=== PATIENT | female | born 1955 | race Caucasian/White ===

== ENCOUNTER 2022-02-22 10:13 | Outpatient (REF) | payer MEDICARE, MEDICAID, SELFPAY ==
[2022-02-22 10:36] LABS: MANUAL DIFF FLAG NO
[2022-02-22 10:48] LABS: Basophils Absolute Auto 0.1 X10*3/uL (0.0-0.2); Basophils Percent Auto 1.3 % (0-2); Eosinophils Absolute Auto 0.2 X10*3/uL (0.0-0.4); Eosinophils Percent Auto 1.7 % (0-4); Hematocrit 40.9 % (37.0-47.0); Hemoglobin 13.5 g/dl (12.0-16.0); Imm Gran Abs Auto 0.05 X10*3/uL (0.00-0.03); Imm Gran Pct Auto 0.5 % (0.0-0.4); Lymphocytes Absolute Auto 1.2 X10*3/uL (1.2-4.9); Lymphocytes Percent Auto 11.3 % (20-40); Mean Corpuscular Hemoglobin 30.8 pg (27.0-33.0); Mean Corpuscular Volume 93.2 fL (80.0-98.0); Mean Platelet Volume 10.9 fL (9.4-12.3); Monocytes Percent Auto 9.2 % (2-11); Neutrophils Absolute Auto 8.3 x10*3/uL (2.0-8.3); Platelet Count 334 X10*3/uL (160-400); Red Blood Count 4.39 X10*6/uL (4.20-5.50); Red Cell Distribution Width 13.2 % (11.0-16.0); White Blood Count 10.9 X10*3/uL (4.8-10.8)
[2022-02-22 11:28] LABS: Alanine Aminotransferase 27 U/L (0-31); Albumin Level 4.3 g/dL (3.5-5.0); Alkaline Phosphatase 54 U/L (39-117); Anion Gap 14 (12-20); Aspartate Amino Transferase 23 U/L (5-31); Bilirubin Total 0.8 mg/dL (0.0-1.0); Blood Urea Nitrogen 8 mg/dL (9-16); Calcium 9.6 mg/dL (8.4-10.2); Carbon Dioxide 29 mmol/L (22-29); Chloride 100 mmol/L (96-108); Cholesterol 139 mg/dL; Estimated Glomerular Filt Rate > 60; Glucose Fasting 102 mg/dL (60-99); HDL Cholesterol 45 mg/dL; LDL Cholesterol Calculated 58 mg/dl; Potassium 4.2 mmol/L (3.3-5.1); Sodium 139 mmol/L (135-145); Total Protein 7.1 g/dL (6.5-8.0); Triglycerides 182 mg/dL
[2022-02-22 11:40] LABS: Free T4 (Free Thyroxine) 1.11 ng/dL (0.71-1.85); Thyroid Stimulating Hormone 1.63 uIU/mL (0.32-4.0); Vitamin D 25-OH Total 23.4 ng/mL (>30)
[2022-02-22 11:49] LABS: Vitamin B12 344 pg/mL (200-900)
[2022-02-22 12:42] LABS: Appearance Urine CLEAR; Color Urine YELLOW; Glucose Urine UA NEG (NEG); Leukocyte Esterase Urine 2+ (NEG); Nitrite Urine NEG (NEG); PH 7.5 (5.0-8.0); UACC Culture Trigger YES; Urine Blood NEG (NEG); Urine Ketones NEG (NEG); Urine Protein NEG (NEG-TRACE)
[2022-02-22 13:00] LABS: RBC Urine 0 /HPF (0); Squamous Epithelial Cell Urine 3+ /LPF
[2022-02-22 13:01] LABS: Bacteria Urine 1+ /LPF
== END 2022-02-22 10:14 | disposition home or self-care (01) ==
LOC: HO.LAB 10:13
PROVIDERS: PCP Internal Medicine; Visit Provider Internal Medicine
DX: G35 Multiple sclerosis (principal); I10 Essential (primary) hypertension; K21.9 Gastro-esophageal reflux disease without esophagitis; L40.50 Arthropathic psoriasis, unspecified
CPT/HCPCS: 36415; 80053; 80061; 81001; 82306; 82607; 84439; 84443; 85025; 86140; 87086

== ENCOUNTER 2022-05-16 12:29 | Outpatient (REF) | payer MEDICARE, MEDICAID, SELFPAY ==
--- NOTE | ~2022-05-16 | MM_ITS ---
EXAMINATION: MM SCREENING DIGITAL BREAST TOMOSYNTHESIS, BILATERAL CLINICAL INFORMATION: Screening. Asymptomatic. The lifetime risk of breast cancer based on the Tyrer-Cuzick Model is 4%. COMPARISON: Mammography: February 27, 2018 and studies dating back to May 28, 2012 TECHNIQUE: Digital breast tomosynthesis is performed in both the craniocaudal and mediolateral oblique views along with computer-aided detection (CAD). Synthesized 2D images are generated from the tomosynthesis. FINDINGS: There are scattered areas of fibroglandular density (ACR BI-RADS breast composition Category b). There are no significant masses, abnormal calcifications, or other abnormalities. MM/MM tomosynthesis screening BI IMPRESSION: No significant changes from prior exam. ASSESSMENT: BI-RADS 1: Negative RECOMMENDATION: Routine annual mammography screening. This patient's information was entered into a reminder system with a target due date for their next mammogram.
--- NOTE | ~2022-05-16 | MM_ITS ---
EXAMINATION: BONE DENSITOMETRY CLINICAL INDICATION: Asymptomatic menopausal state. COMPARISON: Previous BD dated 04/21/2013 and baseline BD dated 06/14/2005. TECHNIQUE: Using a [facility] DXA System (software version: 13.1) manufactured by [employer], dual-energy x-ray absorptiometry was performed of the lumbar spine and left hip. The images are of good technical quality. Summary results are attached. FINDINGS: AP SPINE L3-L4 (excluding L1 and L2): The data of L1-L4 has been changed to exclude the L1 and L2 vertebral bodies, because degenerative changes at these levels may cause overestimation of lumbar spine density. Current: BMD 1.085 g/cm2, Z-score -0.5, T-score -1.0, normal, 0.4% decrease from previous, 5.4% increase from baseline (<5% change is not significant). Prior: BMD 1.089 g/cm2. Baseline: BMD 1.029 g/cm2. LEFT FEMUR, NECK: Current: BMD 0.849 g/cm2, Z-score -0.7, T-score -1.4, osteopenia. Prior: BMD 0.936 g/cm2. Baseline: BMD 0.972 g/cm2. LEFT FEMUR, TOTAL: Current: BMD 0.815 g/cm2, Z-score -1.2, T-score -1.5, osteopenia, 20.6% decrease from previous, 19.2% decrease from baseline (<5% change is not significant). Prior: BMD 1.026 g/cm2. Baseline: BMD 1.009 g/cm2. IDENTIFIED RISK FACTORS: Menopause, osteoporosis, glucocorticoids (chronic), history of fracture (adult). HISTORY OF FRACTURE: Forearm. MEDICATIONS: Prolia. MM/XR DEXA axial skeleton IMPRESSION: 1. DIAGNOSIS: Osteopenia based on the lowest T-score value of -1.5 in the total femur applying World Health Organization criteria. 2. 10-YEAR FRACTURE RISK PREDICTION, FRAX: Major osteoporotic fracture (clinical spine, forearm, hip or shoulder) 17.7%. Hip fracture 1.7%. 3. Treatment Recommendations: NOF guidelines recommend consideration for treatment in postmenopausal women and men age 50 and older presenting with the following: -A hip or vertebral (clinical or morphometric) fracture. -T-score less than or equal to -2.5 at the femoral neck or spine after appropriate evaluation to exclude secondary causes. -Low bone mass at the hip or spine and a 10-year fracture probability by FRAX of greater than or equal to 3% for hip fracture or greater than or equal to 20% for major osteoporotic fracture based on the [place] adapted WHO algorithm. 4. Other Recommendations: All treatment decisions require clinical judgment and consideration of individual patient factors, including patient preferences, comorbidities, previous drug use, risk factors not captured in the FRAX model (e.g. frailty, falls, vitamin D deficiency, increased bone turnover, interval significant decline in bone density) and possible under or overestimation of fracture risk by FRAX. Additional medical evaluation for secondary cause of low bone mineral density may be appropriate. FUTURE SCAN RECOMMENDATION: People with diagnosed cases of osteoporosis or at high risk for fracture should have regular bone mineral density tests. For patients eligible for Medicare, routine testing is allowed once every 2 years. The testing frequency can be increased to one year for patients who have rapidly progressing disease, those who are receiving or discontinuing medical therapy to restore bone mass, or have additional risk factors.
== END 2022-05-16 12:30 | disposition home or self-care (01) ==
LOC: HO.MAMMO 12:29
PROVIDERS: PCP Internal Medicine; Visit Provider Internal Medicine
DX: Z12.31 Encounter for screening mammogram for malignant neoplasm of breast (principal); Z13.820 Encounter for screening for osteoporosis; Z78.0 Asymptomatic menopausal state
CPT/HCPCS: 77063; 77067; 77080

== ENCOUNTER 2022-06-01 12:06 | Inpatient (IN) | payer MEDICARE, MEDICAID, SELFPAY ==
--- NOTE | ~2022-06-01 | CT_ITS ---
EXAMINATION: CT PELVIS WITH CONTRAST CLINICAL INFORMATION: Groin lymphadenopathy. COMPARISON: Ultrasound bilateral venous duplex 06/01/2022. TECHNIQUE: Helical scanning was performed with submillimeter collimation through the pelvis with the use of oral contrast and during bolus intravenous injection of 100 mL of Omnipaque 350 intravenous contrast. Sagittal and coronal multiplanar 2-D reconstructions were obtained. This CT examination was performed using dose optimization techniques as appropriate, variously including the following: *Automated exposure control *Adjustment of mA and/or kV according to patient size (this includes techniques or standardized protocols for targeted exams where dose is matched to indication/reason for exam; i.e. extremities or head) *Use of iterative reconstruction technique DLP: 511 mGy-cm FINDINGS: PELVIS: There is a curvilinear soft tissue density right groin measuring 5.7 x 1.2 cm and coronal image 38/14. The measures -20 Hounsfield units and likely seroma, less likely lymphocele. Small shotty lymph nodes are seen in bilateral groin measuring 1.5 cm and less. There appear benign. No soft tissue mass seen. Bilateral external iliac and common femoral arteries and the veins are symmetrical. The uterus is anteverted and appears unremarkable. There are scattered phleboliths in the left pelvis. Scattered stool is seen throughout the colon, most prominent in the ileocecal region but without distention. Appendix is normal. No free fluid or free air seen. OSSEOUS STRUCTURES: There are degenerative disc changes and vacuum disc phenomena L5-S1 disc level with mild ventral spondylosis. No gross lytic or sclerotic process seen. There is moderate bilateral L4-L5 facet joint arthropathy. No lytic or sclerotic process seen. CT/CT pelvis w IV con IMPRESSION: Curvilinear hypodense structure right groin corresponding to ultrasound finding is most likely a small seroma, less likely lymphocele. Correlate with any previous vascular intervention. Mild constipation.
--- NOTE | ~2022-06-01 | US_ITS ---
EXAMINATION: US VENOUS ULTRASOUND WITH DOPPLER LOWER EXTREMITY, BILATERAL CLINICAL INFORMATION: Lower extremity swelling and redness. History of lymphedema. COMPARISON: None TECHNIQUE: Ultrasound of the deep veins is performed from the hip to the calf with compression sonography and color and pulse Doppler assessment. Spectral analysis with color-flow imaging is performed. FINDINGS: Exam quality is limited due to patient body habitus. RIGHT: There is normal respiratory variation and augmented flow. The visualized common femoral vein, superficial femoral vein, profunda femoral vein, and popliteal vein region shows no evidence of deep venous thrombosis. There is no significant popliteal fossa cyst. Calf veins not definitely seen. Incidental finding of a 6.2 x 1.7 x 5.5 cm oblong-shaped anechoic avascular fluid collection in the right groin. LEFT: There is normal respiratory variation and augmented flow. The visualized common femoral vein, superficial femoral vein, profunda femoral vein, in popliteal vein shows no evidence of deep venous thrombosis. There is no significant popliteal fossa cyst. Calf veins not definitely seen. If the patient's symptoms persist, followup ultrasound in 5 days 7 days might be of value to exclude proximal propagation from a non-visualized calf vein. US/US venous duplex LE BI IMPRESSION: 1. No DVT demonstrated in the bilateral lower extremities within the limitations of this exam. 2. 6.2 x 1.7 x 5.5 cm oblong-shaped anechoic avascular fluid collection in the right groin, possibly small seroma. 3. Exam quality is limited due to patient body habitus. If the patient's symptoms persist, followup ultrasound in 5 days 7 days might be of value to exclude proximal propagation from a non-visualized calf vein.
[2022-06-01 12:11] VITALS: BP 163/82; PULSE 67; RESP 20; TEMP 36.7; O2SAT 98; BMI 49.6
[2022-06-01 12:22] LABS: MANUAL DIFF FLAG NO
[2022-06-01 12:23] LABS: Basophils Absolute Auto 0.1 X10*3/uL (0.0-0.2); Eosinophils Absolute Auto 0.2 X10*3/uL (0.0-0.4); Eosinophils Percent Auto 2.2 % (0-4); Hematocrit 40.9 % (37.0-47.0); Hemoglobin 13.3 g/dl (12.0-16.0); Imm Gran Abs Auto 0.05 X10*3/uL (0.00-0.03); Imm Gran Pct Auto 0.5 % (0.0-0.4); Lymphocytes Absolute Auto 1.4 X10*3/uL (1.2-4.9); Lymphocytes Percent Auto 13.2 % (20-40); Mean Corpuscular HGB Conc 32.5 g/dl (31.0-35.0); Mean Corpuscular Hemoglobin 30.9 pg (27.0-33.0); Mean Corpuscular Volume 94.9 fL (80.0-98.0); Mean Platelet Volume 10.6 fL (9.4-12.3); Monocytes Absolute Auto 0.9 X10*3/uL (0.1-1.2); Monocytes Percent Auto 8.6 % (2-11); Neutrophils Absolute Auto 7.7 x10*3/uL (2.0-8.3); Neutrophils Percent Auto 74.5 % (45-73); Platelet Count 302 X10*3/uL (160-400); Red Blood Count 4.31 X10*6/uL (4.20-5.50); Red Cell Distribution Width 13.2 % (11.0-16.0); White Blood Count 10.3 X10*3/uL (4.8-10.8)
[2022-06-01 12:38] LABS: Anion Gap 17 (12-20); Blood Urea Nitrogen 9 mg/dL (9-16); Calcium 8.9 mg/dL (8.4-10.2); Carbon Dioxide 26 mmol/L (22-29); Chloride 99 mmol/L (96-108); Estimated Glomerular Filt Rate > 60; Glucose Random 104 mg/dL (60-115); Potassium 3.9 mmol/L (3.3-5.1); Sodium 138 mmol/L (135-145)
--- NOTE | 2022-06-01 17:54 | ED_ITS ---
HPI - General Adult General Chief complaint: Skin/Abscess/Foreign Body Stated complaint: cellulitis on leg Time Seen by Provider: 06/01/22 17:22 Source: patient Mode of arrival: ambulatory History of Present Illness HPI narrative: 67-year-old female with history of MS, hypertension and chronic lymphedema that has gradually worsened over the years and she states that she is now having significant weeping from bilateral legs and that they hurt in have become more red, she denies any shortness of breath, fevers, chills and received a referral or was instructed by her primary care provider to follow up with the lymphedema specialist however as per the patient there are none in the [place] area. Related Data Allergies Allergy/AdvReac Type Severity Reaction Status Date / Time codeine [Codeine] Allergy Mild ITCH Unverified 04/14/20 16:27 lisinopril [Lisinopril] Allergy Unknown VOMITING Unverified 04/14/20 16:27 Review of Systems Review of Systems: Pertinent positives and negatives as stated in HPI 10 point review of systems is otherwise negative. PMFSH Past Medical History Source: nursing notes reviewed Social History Social History Advance Directives: No Advance Directives Information Provided: No Physical Exam ED Vital Signs: Vital Signs - 24 hr 06/01/22 12:11 Temperature 98.0 F Pulse Rate 67 Respiratory Rate 20 Blood Pressure 163/82 H Pulse Oximetry 98 Oxygen Delivery Method Room Air BMI result Body Mass Index 49.6 VITAL SIGNS: Reviewed. GENERAL: Elevated BMI, Well developed, well nourished, in no acute distress. HEAD: Normocephalic/atraumatic EYES: PERRLA, EOMI EARS: Ext canals without abnormality OROPHARYNX: no oral lesions noted, posterior pharynx clear LUNGS: Normal breath sounds. No adventitious sounds or accessory muscle use. SpO2<98> CARDIOVASCULAR: Regular rate and rhythm without noted murmurs ABDOMEN: Soft, non-tender, non-distended with bowel sounds. MUSCULOSKELETAL: No tenderness, deformities, or effusions noted on gross inspection. EXTREMITIES: No cyanosis, bilateral lower extremity lymphedema with increasing erythema and multiple areas of weeping with honey-crusted lesions and concern for intra fold yeast infection. SKIN: Inspection of the skin reveals no rashes NEUROLOGIC: Alert and oriented x 4. Strength and sensation to light touch were grossly intact x 4. Course Course Course Narrative: [id number] female with history and clinical presentation consistent with bilateral lower extremity lymphedema that is worsening and appears to have superimposed infection consistent with cellulitis. On review of all investigations although patient does not have leukocytosis there is a left shift and CRP-2.6 as well as clinical exam that is most consistent with cellulitis. Patient will receive antibiotics. I discussed the case with the hospitalist who accepts admission. Medical Decision Making Lab Data Result diagrams: 06/01/22 12:18 06/01/22 12:18 Labs: Lab Results 06/01/22 06/01/22 06/01/22 Range/Units 12:18 12:18 18:23 WBC 10.3 (4.8-10.8) X10*3/uL RBC 4.31 (4.20-5.50) X10*6/uL Hgb 13.3 (12.0-16.0) g/dl Hct 40.9 (37.0-47.0) % MCV 94.9 (80.0-98.0) fL MCH 30.9 (27.0-33.0) pg MCHC 32.5 (31.0-35.0) g/dl RDW 13.2 (11.0-16.0) % Plt Count 302 (160-400) X10*3/uL MPV 10.6 (9.4-12.3) fL Immature Gran % (Auto) 0.5 H (0.0-0.4) % Neut % (Auto) 74.5 H (45-73) % Lymph % (Auto) 13.2 L (20-40) % [place] % (Auto) 8.6 (2-11) % Eos % (Auto) 2.2 (0-4) % Baso % (Auto) 1.0 (0-2) % Lymph # (Auto) 1.4 (1.2-4.9) X10*3/uL [place] # (Auto) 0.9 (0.1-1.2) X10*3/uL Eos # (Auto) 0.2 (0.0-0.4) X10*3/uL Baso # (Auto) 0.1 (0.0-0.2) X10*3/uL Abs Immat Gran (auto) 0.05 H (0.00-0.03) X10*3/uL Absolute Neuts (auto) 7.7 (2.0-8.3) x10*3/uL Absolute Nucleated RBC 0.000 (0.0-0.012) X10*3/uL Nucleated RBC % (auto) 0.0 (0.0-0.2) /100WBC Sodium 138 (135-145) mmol/L Potassium 3.9 (3.3-5.1) mmol/L Chloride 99 (96-108) mmol/L Carbon Dioxide 26 (22-29) mmol/L Anion Gap 17 (12-20) BUN 9 (9-16) mg/dL Creatinine 0.70 (0.5-1.4) mg/dL Estim Creat Clear Calc 104.0 Estimated GFR > 60 Random Glucose 104 (60-115) mg/dL Lactic Acid 1.2 (0.5-2.0) mmol/L Calcium 8.9 D (8.4-10.2) mg/dL C-Reactive Protein 2.86 H (< or = 0.50) mg/dL COVID-19 ([facility]) (Negative) COVID-19 Clin Com 06/01/22 Range/Units 18:23 WBC (4.8-10.8) X10*3/uL RBC (4.20-5.50) X10*6/uL Hgb (12.0-16.0) g/dl Hct (37.0-47.0) % MCV (80.0-98.0) fL MCH (27.0-33.0) pg MCHC (31.0-35.0) g/dl RDW (11.0-16.0) % Plt Count (160-400) X10*3/uL MPV (9.4-12.3) fL Immature Gran % (Auto) (0.0-0.4) % Neut % (Auto) (45-73) % Lymph % (Auto) (20-40) % [place] % (Auto) (2-11) % Eos % (Auto) (0-4) % Baso % (Auto) (0-2) % Lymph # (Auto) (1.2-4.9) X10*3/uL [place] # (Auto) (0.1-1.2) X10*3/uL Eos # (Auto) (0.0-0.4) X10*3/uL Baso # (Auto) (0.0-0.2) X10*3/uL Abs Immat Gran (auto) (0.00-0.03) X10*3/uL Absolute Neuts (auto) (2.0-8.3) x10*3/uL Absolute Nucleated RBC (0.0-0.012) X10*3/uL Nucleated RBC % (auto) (0.0-0.2) /100WBC Sodium (135-145) mmol/L Potassium (3.3-5.1) mmol/L Chloride (96-108) mmol/L Carbon Dioxide (22-29) mmol/L Anion Gap (12-20) BUN (9-16) mg/dL Creatinine (0.5-1.4) mg/dL Estim Creat Clear Calc Estimated GFR Random Glucose (60-115) mg/dL Lactic Acid (0.5-2.0) mmol/L Calcium (8.4-10.2) mg/dL C-Reactive Protein (< or = 0.50) mg/dL COVID-19 ([facility]) Negative (Negative) COVID-19 Clin Com See Note ECG Data Attestation: I personally reviewed and interpreted this ECG as follows: Prior ECG tracings: not available for review Interpretation: Atrial fibrillation, HR-60, no STEMI, QRS/QTC is within normal limits. Critical Care Time Critical Care Time Critical Care Time: Yes Total Critical Care Time: 30 Attestation: I personally attest to this time spent taking care of the patient. Discharge Plan Discharge Clinical Impression: Cellulitis, Lymphedema, Hypertension, Atrial fibrillation Patient Disposition: Admitted As Inpatient
--- NOTE | 2022-06-01 18:00 | ECG_ITS ---
Test Reason : hypertension Blood Pressure : / mmHG Vent. Rate : 060 BPM Atrial Rate : 000 BPM P-R Int : 000 ms QRS Dur : 088 ms QT Int : 454 ms P-R-T Axes : 000 061 013 degrees QTc Int : 454 ms Atrial fibrillation RSR' or QR pattern in V1 suggests right ventricular conduction delay Nonspecific ST abnormality Abnormal ECG When compared with ECG of 18-JUL-2019 15:56, Heart rate has decreased Criteria for Inferior infarct are no longer Present Referred By: Ana Martin Electronically Signed By:ROMEO ANTHONY MD
[2022-06-01 18:10] LABS: C Reactive Protein 2.86 mg/dL (< or = 0.50)
[2022-06-01 18:52] LABS: Lactic Acid 1.2 mmol/L (0.5-2.0)
[2022-06-01 18:54] LABS: COVID-19 Test Negative (Negative); IDNOW Serial# 55D5AD1C
--- NOTE | 2022-06-01 20:15 | PM.IMHP ---
History of Present Illness Date of Service: 06/01/22 Chief Complaint: swollen leg 67-year-old female with past medical history of MS, AFib, chronic lymphadenopathy, hypertension, chronic pain, presents to the hospital with complaints of swelling in her lower extremity. Patient is here with her sister, according to the sister she has short-term memory loss therefore sisters her healthcare proxy and answer some of the questions per. According to the patient and sister she has had chronic lower extremity edema due to lymphadenopathy, but for the past few weeks the swelling has worsened on the left lower extremity with significant redness, as well as weeping clear liquid. Patient herself denies any fever or chills, reports the pain has increased in her left lower extremity, denies any fever no chills, has no chest pain, no palpitations, no abdominal pain nausea or vomiting, no diarrhea or constipation, no urinary symptoms. She reports that she was started on p.o. antibiotics for for her leg and completed the course but did not improved and got worse. Under interval to the ED patient hemodynamically stable with no significant abnormal vitals labs are significant for WBC count of 10.3, CRP of 2.86, Venous duplex of the lower extremity was done which showed no DVT demonstrated in the bilateral lower extremities within the limitation of this exam due to patient's body habitus, 6.2 x 1.7 x 5.7 cm collection in the groin possible seroma, but the exam quality is limited due to patient's body habitus. Patient started on IV antibiotics will be admitted for further management Review of Systems Review of Systems: Yes all other systems are reviewed and are negative [facility] Medical History (Updated 06/02/22 @ 05:54 by Conrad Solano MD) Afib Chronic acquired lymphedema Hypertension Multiple sclerosis Family History (Updated 06/02/22 @ 05:54 by Conrad Solano MD) Other No family history of coronary artery disease Surgical History (Updated 06/02/22 @ 05:54 by Conrad Solano MD) No pertinent past surgical history Social History Smoked in Last 30 Days: No Use of substances other than those prescribed or required for medical reasons: No Advance Directives: No Advance Directives Information Provided: No service: No Current occupational status: retired Meds Allergies Allergy/AdvReac Type Severity Reaction Status Date / Time codeine [Codeine] Allergy Mild ITCH Unverified 04/14/20 16:27 lisinopril [Lisinopril] Allergy Unknown VOMITING Unverified 04/14/20 16:27 Home Medications Medication Instructions Recorded Confirmed Last Taken Type acetaminophen 325 mg tablet 325 mg PO QID PRN Pain 06/01/22 06/01/22 Unknown History amlodipine 5 mg tablet 1 tab PO DAILY 06/01/22 06/01/22 06/01/22 09:00 History ammonium lactate 12 % lotion 1 applic topical DAILY 06/01/22 06/01/22 Unknown History aspirin 81 mg tablet,delayed 81 mg PO DAILY 06/01/22 06/01/22 06/01/22 09:00 History release atenolol 50 mg tablet 1 tab PO DAILY 06/01/22 06/01/22 06/01/22 09:00 History calcium carbonate 500 mg-vitamin 1 tab PO DAILY 06/01/22 06/01/22 06/01/22 09:00 History D3 10 mcg (400 unit) tablet (Calcium 500 + D) citalopram 20 mg tablet 1 tab PO DAILY 06/01/22 06/01/22 06/01/22 09:00 History digoxin 250 mcg (0.25 mg) tablet 1 tab PO DAILY 06/01/22 06/01/22 06/01/22 09:00 History famotidine 20 mg tablet 1 tab PO DAILY 06/01/22 06/01/22 Unknown History gabapentin 300 mg capsule 1 cap PO DAILY 06/01/22 06/01/22 06/01/22 09:00 History hydrochlorothiazide 25 mg tablet 1 tab PO DAILY 06/01/22 06/01/22 06/01/22 09:00 History oxybutynin chloride 5 mg tablet 1 tab PO BID 06/01/22 06/01/22 06/01/22 09:00 History tacrolimus 0.03 % topical ointment 1 applic topical BID 06/01/22 06/01/22 06/01/22 09:00 History tramadol 50 mg tablet 1 tab PO BID PRN Pain 06/01/22 06/01/22 Unknown History Physical Exam Vital Signs and Narrative: Vital Signs: Last Vital Signs Temp 98.0 F 06/01/22 12:11 Pulse 67 06/01/22 12:11 Resp 20 06/01/22 12:11 BP 163/82 H 06/01/22 12:11 Pulse Ox 98 06/01/22 12:11 O2 Del Method 06/01/22 12:11 BMI result Body Mass Index 49.6 Const: Other: Patient is significantly obese General: cooperative and no acute distress Orientation/consciousness: patient oriented x3 Eyes: General: appearance normal, both eyes and all related structures Resp: Effort & Inspection: normal respiratory effort Auscultation: clear to auscultation bilaterally Cardio: Rate: regular rate Rhythm: regular rhythm GI: Palpation (GI): Soft to palpation Auscultation: normal bowel sounds Skin: Other: Scan of bilateral lower extremities red, slightly warm, worse on the left Neuro: General: patient oriented x3 Cognition (Neuro): normal cognition Extrem: Other: Short legs, completely edematous significant skin changes, left lower extremity has erythema from the base of the foot all the way to below the left knee slightly warm, tender, 3+ edema Results Labs CBC and Chem 7: 06/01/22 12:18 06/01/22 12:18 Labs: Laboratory Results - last 24 hr 06/01/22 06/01/22 06/01/22 12:18 12:18 18:23 MCV 94.9 MCH 30.9 MCHC 32.5 RDW 13.2 Plt Count 302 MPV 10.6 Immature Gran % (Auto) 0.5 H Neut % (Auto) 74.5 H Lymph % (Auto) 13.2 L [facility] % (Auto) 8.6 Eos % (Auto) 2.2 Baso % (Auto) 1.0 Lymph # (Auto) 1.4 [facility] # (Auto) 0.9 Eos # (Auto) 0.2 Baso # (Auto) 0.1 Abs Immat Gran (auto) 0.05 H Absolute Neuts (auto) 7.7 Absolute Nucleated RBC 0.000 Nucleated RBC % (auto) 0.0 Anion Gap 17 Estim Creat Clear Calc 104.0 Estimated GFR > 60 Random Glucose 104 Lactic Acid 1.2 Calcium 8.9 D C-Reactive Protein 2.86 H COVID-19 ([facility]) COVID-19 Clin Com 06/01/22 18:23 MCV MCH MCHC RDW Plt Count MPV Immature Gran % (Auto) Neut % (Auto) Lymph % (Auto) [facility] % (Auto) Eos % (Auto) Baso % (Auto) Lymph # (Auto) [facility] # (Auto) Eos # (Auto) Baso # (Auto) Abs Immat Gran (auto) Absolute Neuts (auto) Absolute Nucleated RBC Nucleated RBC % (auto) Anion Gap Estim Creat Clear Calc Estimated GFR Random Glucose Lactic Acid Calcium C-Reactive Protein COVID-19 ([facility]) Negative COVID-19 Clin Com See Note Assessment and Plan (1) Cellulitis: Status: Acute (2) Lymphedema: Status: Acute Plan 67-year-old female with past medical history of MS, AFib on anticoagulation, chronic lymphedema, presents to the hospital with complaints worsening redness and swelling in her left leg # acute cellulitis - failed outpatient therapy - left lower extremity is erythematous, warm, edematous - Will treat with IV antibiotics - follow cultures # lymphedema - patient reports that there are no specialist for lymphedema in [place] where she lives, - patient will require follow-up possibly with wound care - at this time will consult inpatient wound care for any further recommendation # AFib - currently in AFib - patient and her sister are not aware why she is not on anticoagulation - continue amlodipine, digoxin # mood disorder - continue home medications # hypertension - stable - continue antihypertensives # MS - not in flare - continue home treatment DVT prophylaxis: Heparin subQ Given failed outpatient therapy for her acute cellulitis with p.o. antibiotics patient required minimum 2 night inpatient hospital stay for further management Quality Stroke Does the patient have a stroke diagnosis?: No VTE Prior VTE?: No VTE Risk Level:: Medical - moderate - high VTE Device Contraindication: Treatment Not Indicated VTE Drug Contraindication: N/A - Med Ordered
[2022-06-01] MEDS: Piperacillin Sodium/Tazobactam 3.375 GM in 0.9 % Sodium Chloride 50 ML IV (20:18)
[2022-06-01] MEDS: Heparin Sodium,Porcine 5,000 UNIT/ML VIAL 5000 UNIT SUBCUT (20:45)
[2022-06-01 20:52] VITALS: BP 132/55; PULSE 60; RESP 20; TEMP 36.6; O2SAT 97
--- NOTE | 2022-06-01 20:55 | PC.NURSE ---
Pt is a/o x 4, pt reports experiencing rash discoloration on her lower extremities for over 4 weeks now. Pt V/S are stable, pt has lower extremities edema grade 4 with a rash and discoloration. Pt has + peripheral pulses and her left leg is actually has a worst rash. Lungs sounds are clear and pt has skin turgor. Pt was administer antibiotics as order by the provider. will continue to monitor.
--- NOTE | 2022-06-01 21:49 | PHA.MEDREC ---
Pharmacy Consult ? Medication Reconciliation Pharmacy has completed the medication reconciliation. Patient had a list at bedside.
[2022-06-01 22:48] VITALS: BP 145/89; PULSE 71; RESP 20; TEMP 36.5; O2SAT 96
--- NOTE | 2022-06-01 23:05 | MHC.CM.PN ---
RONNIE 06/01. Met with patient placed to OBS with bed assignment pending. Pt with poor STM. Pt tells CM she was at a half-way for 2 years, but cannot tell CM why or when. Tells CM she lives in assisted living in [place], but cannot tell CM name of facility. Pt tells CM she does not like the assisted living and that she wants to go back to her home. Pt unsure if she got Covid vaccines. Pt is not sure that she wants [facility] at discharge. States her sister is her HCP, but doesn't know about any paperwork. CM called Sister/HCP Edita Amelia ([phone]). Edita tells CM that her sister has very poor STM. She was in [facility] in [facility] for 2 years because she was falling and could not care for herself. Pt recently moved to assisted living at [facility] in [facility]. Edita tells CM that her sister had 3 Pfizer vaccines (07/26/20, 08/16/20 & 05/24/21). She tells me the patient has had Covid twice. Edita tells CM that she is the HCP/POA. Has paper work at home. Edita would like [facility] at d/c if possible. Edita agrees with d/c plan: home with [facility]. Edita will provide transport home. CM will follow for d/c needs. No referrals placed at this time.
[2022-06-02] MEDS: 0.9 % Sodium Chloride Flush 3 ML SYRINGE IVFLUSH ×4 (00:13→23:40)
[2022-06-02] MEDS: ceFAZolin Sodium/Dextrose,Iso 2 GM/50 ML PIGGYBACK IV ×4 (00:13→23:47)
[2022-06-02] MEDS: Acetaminophen 325 MG TABLET 650 MG PO ×2 (02:58→23:51)
[2022-06-02 06:51] LABS: MANUAL DIFF FLAG NO
[2022-06-02 07:03] LABS: Basophils Absolute Auto 0.1 X10*3/uL (0.0-0.2); Basophils Percent Auto 0.9 % (0-2); Eosinophils Absolute Auto 0.2 X10*3/uL (0.0-0.4); Eosinophils Percent Auto 1.9 % (0-4); Hematocrit 39.3 % (37.0-47.0); Imm Gran Abs Auto 0.05 X10*3/uL (0.00-0.03); Imm Gran Pct Auto 0.4 % (0.0-0.4); Lymphocytes Absolute Auto 1.3 X10*3/uL (1.2-4.9); Lymphocytes Percent Auto 11.1 % (20-40); Mean Corpuscular HGB Conc 33.1 g/dl (31.0-35.0); Mean Corpuscular Volume 93.6 fL (80.0-98.0); Mean Platelet Volume 11.3 fL (9.4-12.3); Monocytes Percent Auto 8.5 % (2-11); Neutrophils Absolute Auto 8.9 x10*3/uL (2.0-8.3); Neutrophils Percent Auto 77.2 % (45-73); Platelet Count 310 X10*3/uL (160-400); Red Cell Distribution Width 13.4 % (11.0-16.0); White Blood Count 11.5 X10*3/uL (4.8-10.8)
[2022-06-02 07:08] LABS: Anion Gap 17 (12-20); Blood Urea Nitrogen 8 mg/dL (9-16); Calcium 8.9 mg/dL (8.4-10.2); Carbon Dioxide 26 mmol/L (22-29); Chloride 101 mmol/L (96-108); Creatinine Clr Calc Pharmacy 110.3; Estimated Glomerular Filt Rate > 60; Glucose Random 116 mg/dL (60-115); Potassium 3.5 mmol/L (3.3-5.1); Sodium 140 mmol/L (135-145)
[2022-06-02 07:19] VITALS: BP 170/78; PULSE 84; RESP 20; TEMP 37; O2SAT 97
[2022-06-02] MEDS: Heparin Sodium,Porcine 5,000 UNIT/ML VIAL 5000 UNIT SUBCUT ×2 (08:12→20:06)
--- NOTE | 2022-06-02 08:13 | PC.NURSE ---
Addendum entered by Jud Ferguson RN 06/02/22 08:13: c/o pain refused tylenol, dr clifton notified pt requesting to try motrin, lle red/warm to touch, pt medicated per order with iv abx, pt upset about being an inpt and having to use a bathroom others are using, pt offered commode and refused, pt stated I should have gone to [place] I would be back at home right now this nurse has attempted address the patients concerns without resolution at this time, awaiting new order from provider for pain medications, will continue to monitor Original Note: patient a&ox3, c/o 02/04 pain-
--- NOTE | 2022-06-02 09:07 | PC.NURSE ---
called pharmacy for missing medications
[2022-06-02] MEDS: Digoxin 0.25 MG TABLET PO (09:52)
[2022-06-02] MEDS: Famotidine 20 MG TABLET PO (09:53)
[2022-06-02] MEDS: Aspirin Enteric Coated 81 MG TABLET.DR PO (09:53)
[2022-06-02] MEDS: Escitalopram Oxalate 10 MG TABLET PO (09:53)
[2022-06-02] MEDS: atenoloL 50 MG TABLET PO (09:53)
[2022-06-02] MEDS: Gabapentin 300 MG CAPSULE PO (09:53)
[2022-06-02] MEDS: traMADoL HCL 50 MG TABLET PO ×2 (09:53→22:03)
[2022-06-02] MEDS: amLODIPine Besylate 5 MG TABLET PO (09:54)
[2022-06-02] MEDS: hydroCHLOROthiazide 25 MG TABLET PO (10:02)
[2022-06-02 10:24] VITALS: BP 170/78; PULSE 84; O2SAT 97
--- NOTE | 2022-06-02 11:30 | PC.NURSE ---
pt was oob with PT walking with wheeled walker, pt also ambulated to bathroom, pt does need a heavy assist to help her get back into bed as the patient is unable to lift her own legs back into bed. currently patient is sleeping, call delacruz within reach, will continue to monitor
--- NOTE | 2022-06-02 15:33 | HO.PM.IMPN ---
Subjective Subjective Date of Service: 06/02/22 Interval History: states legs have been swollen for only 4 weeks denies dyspnea ?unreliable historian Review of Systems Review of Systems: Yes all other systems are reviewed and are negative Physical Exam Vital Signs: Vital Signs: Last Vital Signs Temp 98.6 F 06/02/22 07:19 Pulse 84 06/02/22 10:24 Resp 20 06/02/22 07:19 BP 170/78 H 06/02/22 10:24 Pulse Ox 97 06/02/22 10:24 O2 Del Method 06/02/22 07:19 BMI result Body Mass Index 49.6 Gen: in no acute distress HEENT: sclera anicteric, moist mucus membranes Neck: supple Lungs: clear to auscultation bilaterally Heart: regular rate and rhythm, no murmurs Abd: soft, non-tender, non-distended, obese Ext: extensive lymphedema, LLE with erythema Skin: warm/well-perfused Neuro: alert and oriented x3, no focal findings Psych: appropriate affect Objective Data Active Medications Acetaminophen (Acetaminophen 325 Mg Tablet) 650 mg PO Q6H PRN PRN Reason: Pain, Mild (Pain Scale 1-3) Last Admin: 06/02/22 02:58 Dose: 650 mg Documented By: BRANDEN Amlodipine Besylate (Amlodipine Besylate 5 Mg Tablet) 5 mg PO DAILY [facility]; Protocol Last Admin: 06/02/22 09:54 Dose: 5 mg Documented By: SAMMY Aspirin (Aspirin Enteric Coated 81 Mg Tablet.) 81 mg PO DAILY [facility] [place] Last Admin: 06/02/22 09:53 Dose: 81 mg Documented By: SAMMY Atenolol (Atenolol 50 Mg Tablet) 50 mg PO DAILY [facility] [place]; Protocol Last Admin: 06/02/22 09:53 Dose: 50 mg Documented By: SAMMY Digoxin (Digoxin 0.25 Mg Tablet) 0.25 mg PO DAILY [facility] [place] Last Admin: 06/02/22 09:52 Dose: 0.25 mg Documented By: SAMMY Docusate Sodium (Docusate Sodium 100 Mg Capsule) 100 mg PO DAILY PRN PRN Reason: Constipation Escitalopram Oxalate (Escitalopram Oxalate 10 Mg Tablet) 10 mg PO DAILY [facility] [place] Last Admin: 06/02/22 09:53 Dose: 10 mg Documented By: SAMMY Famotidine (Famotidine 20 Mg Tablet) 20 mg PO DAILY [facility] [place] Last Admin: 06/02/22 09:53 Dose: 20 mg Documented By: SAMMY Gabapentin (Gabapentin 300 Mg Capsule) 300 mg PO DAILY [facility] [place] Last Admin: 06/02/22 09:53 Dose: 300 mg Documented By: SAMMY Heparin Sodium (Porcine) (Heparin Sodium,Porcine 5,000 Unit/Ml Vial) 5,000 unit SUBCUT Q12H [facility] [place] Last Admin: 06/02/22 08:12 Dose: 5,000 unit Documented By: SAMMY Hydrochlorothiazide (Hydrochlorothiazide 25 Mg Tablet) 25 mg PO DAILY [facility] [place]; Protocol Last Admin: 06/02/22 10:02 Dose: 25 mg Documented By: SAMMY Cefazolin Sodium/Dextrose (Ancef) 2 gm in 50 mls @ 100 mls/hr IV Q8H [facility] [place] Last Infusion: 06/02/22 08:36 Dose: 0 mls/hr Documented By: SAMMY Ibuprofen (Ibuprofen 400 Mg Tablet) 400 mg PO Q6H PRN PRN Reason: back pain Ondansetron HCl (Ondansetron Hcl 4 Mg/2 Ml Vial) 4 mg IVPUSH Q8H PRN PRN Reason: Nausea and Vomiting Oxybutynin Chloride (Oxybutynin Chloride Er 5 Mg Tab.Er.24) 10 mg PO DAILY [facility] [place] Last Admin: 06/02/22 09:52 Dose: 10 mg Documented By: SAMMY Sodium Chloride (0.9 % Sodium Chloride Flush 3 Ml Syringe) 3 ml IVFLUSH QSHIFT [facility] [place] Last Admin: 06/02/22 08:06 Dose: 3 ml Documented By: SAMMY Tramadol HCl (Tramadol Hcl 50 Mg Tablet) 50 mg PO BID PRN PRN Reason: Pain severe Last Admin: 06/02/22 09:53 Dose: 50 mg Documented By: SAMMY Labs CBC & Chem 7: 06/02/22 06:17 06/02/22 06:17 Labs: Laboratory Results - last 24 hr 06/01/22 06/01/22 06/01/22 12:18 18:23 18:23 MCV MCH MCHC RDW Plt Count MPV Immature Gran % (Auto) Neut % (Auto) Lymph % (Auto) [place] % (Auto) Eos % (Auto) Baso % (Auto) Lymph # (Auto) [place] # (Auto) Eos # (Auto) Baso # (Auto) Abs Immat Gran (auto) Absolute Neuts (auto) Absolute Nucleated RBC Nucleated RBC % (auto) Anion Gap Estim Creat Clear Calc Estimated GFR Random Glucose Lactic Acid 1.2 Calcium C-Reactive Protein 2.86 H COVID-19 ([facility]) Negative COVID-19 Clin Com See Note 06/02/22 06/02/22 06:17 06:17 MCV 93.6 MCH 31.0 MCHC 33.1 RDW 13.4 Plt Count 310 MPV 11.3 Immature Gran % (Auto) 0.4 Neut % (Auto) 77.2 H Lymph % (Auto) 11.1 L [place] % (Auto) 8.5 Eos % (Auto) 1.9 Baso % (Auto) 0.9 Lymph # (Auto) 1.3 [place] # (Auto) 1.0 Eos # (Auto) 0.2 Baso # (Auto) 0.1 Abs Immat Gran (auto) 0.05 H Absolute Neuts (auto) 8.9 H Absolute Nucleated RBC 0.000 Nucleated RBC % (auto) 0.0 Anion Gap 17 Estim Creat Clear Calc 110.3 Estimated GFR > 60 Random Glucose 116 H Lactic Acid Calcium 8.9 C-Reactive Protein COVID-19 ([facility]) COVID-19 Clin Com Assessment and Plan (1) Cellulitis: Status: Acute Plan d#2 67yo F with MS, AF but not on AC, lymphedema presenting with worsening redness/swelling LLE # acute cellulitis - failed outpt ABX, now on cefazolin d#2, follow BCx # lymphedema - wound care consultation # ?seroma R groin - CT pelvis, surgery consult # chronic AF - continue digoxin + atenolol - unsure why not on AC- Cardiology consultation # mood disorder - escitalopram # HTN - continue amlodipine + atenolol + HCTZ # VTE ppx: UFH In my clinical judgment, the patient requires continued inpatient hospitalization for the following reasons: IV ABX Quality Stroke Does the patient have a stroke diagnosis?: No VTE Prior VTE?: No VTE Risk Level:: Medical - moderate - high VTE Device Contraindication: Treatment Not Indicated VTE Drug Contraindication: N/A - Med Ordered
[2022-06-02 15:46] VITALS: BP 113/59; PULSE 71; RESP 18; TEMP 36.6; O2SAT 95
--- NOTE | 2022-06-02 17:10 | PC.NURSE ---
patient a&ox3, pt ambulates with wheeled walker independently with steady gait, pt does however need continued help getting her legs back into bed, vss, iv antibiotics given per order, call delacruz within reach, vss, will continue to monitor
--- NOTE | 2022-06-02 18:44 | PC.NURSE ---
pt to ct scan
--- NOTE | 2022-06-02 18:53 | P.PNGS_ITS ---
Subjective Subjective Date of Service: 06/02/22 Physical Exam Vital Signs: Vital Signs: Last Vital Signs Temp 98 F 06/02/22 15:46 Pulse 71 06/02/22 15:46 Resp 18 06/02/22 15:46 BP 113/59 L 06/02/22 15:46 Pulse Ox 95 06/02/22 15:46 O2 Del Method 06/02/22 15:46 BMI result Body Mass Index 49.6 Objective Data Active Medications Acetaminophen (Acetaminophen 325 Mg Tablet) 650 mg PO Q6H PRN PRN Reason: Pain, Mild (Pain Scale 1-3) Last Admin: 06/02/22 02:58 Dose: 650 mg Documented By: BRANDEN Amlodipine Besylate (Amlodipine Besylate 5 Mg Tablet) 5 mg PO DAILY [facility]; Protocol Last Admin: 06/02/22 09:54 Dose: 5 mg Documented By: SAMMY Aspirin (Aspirin Enteric Coated 81 Mg Tablet.) 81 mg PO DAILY [facility] Last Admin: 06/02/22 09:53 Dose: 81 mg Documented By: SAMMY Atenolol (Atenolol 50 Mg Tablet) 50 mg PO DAILY [facility]; Protocol Last Admin: 06/02/22 09:53 Dose: 50 mg Documented By: SAMMY Digoxin (Digoxin 0.25 Mg Tablet) 0.25 mg PO DAILY [facility] Last Admin: 06/02/22 09:52 Dose: 0.25 mg Documented By: SAMMY Docusate Sodium (Docusate Sodium 100 Mg Capsule) 100 mg PO DAILY PRN PRN Reason: Constipation Escitalopram Oxalate (Escitalopram Oxalate 10 Mg Tablet) 10 mg PO DAILY [facility] Last Admin: 06/02/22 09:53 Dose: 10 mg Documented By: SAMMY Famotidine (Famotidine 20 Mg Tablet) 20 mg PO DAILY [facility] Last Admin: 06/02/22 09:53 Dose: 20 mg Documented By: SAMMY Gabapentin (Gabapentin 300 Mg Capsule) 300 mg PO DAILY [facility] Last Admin: 06/02/22 09:53 Dose: 300 mg Documented By: SAMMY Heparin Sodium (Porcine) (Heparin Sodium,Porcine 5,000 Unit/Ml Vial) 5,000 unit SUBCUT Q12H [facility] Last Admin: 06/02/22 08:12 Dose: 5,000 unit Documented By: SAMMY Hydrochlorothiazide (Hydrochlorothiazide 25 Mg Tablet) 25 mg PO DAILY [facility]; Protocol Last Admin: 06/02/22 10:02 Dose: 25 mg Documented By: SAMMY Cefazolin Sodium/Dextrose (Ancef) 2 gm in 50 mls @ 100 mls/hr IV Q8H [facility] Last Infusion: 06/02/22 16:13 Dose: 0 mls/hr Documented By: SAMMY Ibuprofen (Ibuprofen 400 Mg Tablet) 400 mg PO Q6H PRN PRN Reason: back pain Ondansetron HCl (Ondansetron Hcl 4 Mg/2 Ml Vial) 4 mg IVPUSH Q8H PRN PRN Reason: Nausea and Vomiting Oxybutynin Chloride (Oxybutynin Chloride Er 5 Mg Tab.Er.24) 10 mg PO DAILY [facility] Last Admin: 06/02/22 09:52 Dose: 10 mg Documented By: SAMMY Sodium Chloride (0.9 % Sodium Chloride Flush 3 Ml Syringe) 3 ml IVFLUSH QSHIFT [facility] Last Admin: 06/02/22 15:43 Dose: 3 ml Documented By: SAMMY Tramadol HCl (Tramadol Hcl 50 Mg Tablet) 50 mg PO BID PRN PRN Reason: Pain severe Last Admin: 06/02/22 09:53 Dose: 50 mg Documented By: SAMMY Labs CBC & Chem 7: 06/02/22 06:17 06/02/22 06:17 Labs: Laboratory Results - last 24 hr 06/01/22 06/02/22 06/02/22 18:23 06:17 06:17 MCV 93.6 MCH 31.0 MCHC 33.1 RDW 13.4 Plt Count 310 MPV 11.3 Immature Gran % (Auto) 0.4 Neut % (Auto) 77.2 H Lymph % (Auto) 11.1 L [place] % (Auto) 8.5 Eos % (Auto) 1.9 Baso % (Auto) 0.9 Lymph # (Auto) 1.3 [place] # (Auto) 1.0 Eos # (Auto) 0.2 Baso # (Auto) 0.1 Abs Immat Gran (auto) 0.05 H Absolute Neuts (auto) 8.9 H Absolute Nucleated RBC 0.000 Nucleated RBC % (auto) 0.0 Anion Gap 17 Estim Creat Clear Calc 110.3 Estimated GFR > 60 Random Glucose 116 H Calcium 8.9 COVID-19 ([facility]) Negative COVID-19 Clin Com See Note Procedures Date of Service Date of Service: 06/02/22 Progress Note: A&P Assessment and plan (1) Cellulitis: Status: Acute Plan pt at CT scan will reevaluate tomorrow Time Spent With Patient Time: Total time spent is greater than 50% in coordination of care (as documented) at patient's floor/unit and/or counseling patient: Quality Stroke Does the patient have a stroke diagnosis?: No VTE Prior VTE?: No VTE Risk Level:: Medical - moderate - high VTE Device Contraindication: Treatment Not Indicated VTE Drug Contraindication: N/A - Med Ordered
[2022-06-02] MEDS: iohexoL 350 MG/ML 100 ML INFUS..BTL IV (18:59)
[2022-06-02 20:29] VITALS: BP 138/67; PULSE 69; RESP 18; TEMP 36.8; O2SAT 99
[2022-06-02] MEDS: Ibuprofen 400 MG TABLET PO (22:05)
[2022-06-03] VITALS (7 sets, daily range): BP systolic 117–155; BP diastolic 59–79; PULSE 62–83; RESP 16–19; TEMP 35.9–36.7; O2SAT 94–99
--- NOTE | 2022-06-03 01:01 | PC.NURSE ---
pt asleep resting comfortably.
--- NOTE | 2022-06-03 05:17 | PC.NURSE ---
Pt ambulated to and from restroom with walker independently.
[2022-06-03 07:00] LABS: Hematocrit 39.8 % (37.0-47.0); Hemoglobin 13.3 g/dl (12.0-16.0); Mean Corpuscular HGB Conc 33.4 g/dl (31.0-35.0); Mean Corpuscular Hemoglobin 31.6 pg (27.0-33.0); Mean Corpuscular Volume 94.5 fL (80.0-98.0); Mean Platelet Volume 11.1 fL (9.4-12.3); Platelet Count 282 X10*3/uL (160-400); Red Blood Count 4.21 X10*6/uL (4.20-5.50); Red Cell Distribution Width 13.3 % (11.0-16.0); White Blood Count 7.6 X10*3/uL (4.8-10.8)
--- NOTE | 2022-06-03 08:19 | PC.NURSE ---
pt received a/o x 3, ambulatory with walker to BR. Speech clear and coherent. 8am Ancef not available, pharmacy aware, will administer when it gets here. Pt with no complaints at this time.
[2022-06-03] MEDS: ceFAZolin Sodium/Dextrose,Iso 2 GM/50 ML PIGGYBACK IV ×2 (09:48→15:13)
--- NOTE | 2022-06-03 09:49 | P.CONCA_ITS ---
History of Present Illness History of Present Illness Date of Service: 06/03/22 Chief complaint: Cellulitis Narrative: This is a cardiology consultation regarding atrial fibrillation. Patient states that she has had atrial fibrillation for many years, almost 5-10 years. She is not able to give much of information about this. Has not seen a community relations coordinator according to her. Not on anticoagulation either. With regard to medications, she is maintained on digoxin and atenolol. Otherwise, she denies any specific symptoms like palpitations or shortness of breath or any other specific cardiac complaints. Also denies any history of coronary artery disease, myocardial infarction or cardiomyopathy. She apparently has lymphedema in her lower extremities and current admission is for question of acute cellulitis. Cardiology was consulted as she has atrial fibrillation but not on anti coagulation. Review of Systems Review of Systems: Yes all other systems are reviewed and are negative Constitutional: Constitutional: Reports as per HPI Eyes: Eyes: Reports as per HPI ENT: Reports as per HPI Cardiovascular: Cardiovascular: Reports as per HPI, Denies acrocyanosis, Denies cool extremities, Denies chest pain, Denies leg edema, Denies lightheadedness, Denies palpitations and Denies dyspnea Respiratory: Respiratory: Reports as per HPI, Reports no additional respiratory complaints and Denies dyspnea Gastrointestinal: Gastrointestinal: Reports as per HPI and Reports no additional gastrointestinal complaints Genitourinary: Genitourinary: Reports as per HPI Musculoskeletal: Musculoskeletal: Reports no additional musculoskeletal complaints and Reports as per HPI Integumentary/Breasts: Skin/Breast: Reports system reviewed and no additional complaints, except as docu Neurologic: Reports system reviewed and no additional complaints, except as documented and Reports as per HPI Psychiatric: Psychiatric: Reports no additional psychiatric complaints and Reports as per HPI Endocrine: Endocrine: Reports no additional endocrine complaints, Reports as per HPI and Denies palpitations Hematologic/Lymphatic: Hematologic/Lymphatic: Reports no additional hematologic/lymphatic complaints and Reports as per HPI Allergic/Immunologic: Allergic/Immunologic: Reports no additional allergic/immunologic complaints and Reports as per HPI [facility] Past Medical History Medical History (Updated 06/03/22 @ 09:53 by Rudy Swanson MD) Afib Chronic acquired lymphedema Hypertension Multiple sclerosis Family History Family History (Updated 06/02/22 @ 05:54 by Conrad Solano MD) Other No family history of coronary artery disease Pertinent family history: Patient states there is history of cancers in the family but cannot explain further. Surgical History Surgical History No pertinent past surgical history Social History Social History Smoked in Last 30 Days: No Use of substances other than those prescribed or required for medical reasons: No Advance Directives: No Advance Directives Information Provided: No service: No Current occupational status: retired Meds Allergies Allergy/AdvReac Type Severity Reaction Status Date / Time codeine [Codeine] Allergy Mild ITCH Unverified 04/14/20 16:27 lisinopril [Lisinopril] Allergy Unknown VOMITING Unverified 04/14/20 16:27 Active Medications: Current Medications Acetaminophen (Acetaminophen 325 Mg Tablet) 650 mg PO Q6H PRN PRN Reason: Pain, Mild (Pain Scale 1-3) Last Admin: 06/02/22 23:51 Dose: 650 mg Amlodipine Besylate (Amlodipine Besylate 5 Mg Tablet) 5 mg PO DAILY [facility]; Protocol Last Admin: 06/02/22 09:54 Dose: 5 mg Aspirin (Aspirin Enteric Coated 81 Mg Tablet.Dr) 81 mg PO DAILY [facility] Last Admin: 06/02/22 09:53 Dose: 81 mg Atenolol (Atenolol 50 Mg Tablet) 50 mg PO DAILY [facility]; Protocol Last Admin: 06/02/22 09:53 Dose: 50 mg Digoxin (Digoxin 0.25 Mg Tablet) 0.25 mg PO DAILY [facility] Last Admin: 06/02/22 09:52 Dose: 0.25 mg Docusate Sodium (Docusate Sodium 100 Mg Capsule) 100 mg PO DAILY PRN PRN Reason: Constipation Escitalopram Oxalate (Escitalopram Oxalate 10 Mg Tablet) 10 mg PO DAILY [facility] Last Admin: 06/02/22 09:53 Dose: 10 mg Famotidine (Famotidine 20 Mg Tablet) 20 mg PO DAILY [facility] Last Admin: 06/02/22 09:53 Dose: 20 mg Gabapentin (Gabapentin 300 Mg Capsule) 300 mg PO DAILY [facility] Last Admin: 06/02/22 09:53 Dose: 300 mg Heparin Sodium (Porcine) (Heparin Sodium,Porcine 5,000 Unit/Ml Vial) 5,000 unit SUBCUT Q12H [facility] Last Admin: 06/02/22 20:06 Dose: 5,000 unit Hydrochlorothiazide (Hydrochlorothiazide 25 Mg Tablet) 25 mg PO DAILY [facility]; Protocol Last Admin: 06/02/22 10:02 Dose: 25 mg Cefazolin Sodium/Dextrose (Ancef) 2 gm in 50 mls @ 100 mls/hr IV Q8H [facility] Last Infusion: 06/03/22 01:11 EDT Dose: Infused Ibuprofen (Ibuprofen 400 Mg Tablet) 400 mg PO Q6H PRN PRN Reason: back pain Last Admin: 06/02/22 22:05 Dose: 400 mg Ondansetron HCl (Ondansetron Hcl 4 Mg/2 Ml Vial) 4 mg IVPUSH Q8H PRN PRN Reason: Nausea and Vomiting Oxybutynin Chloride (Oxybutynin Chloride Er 5 Mg Tab.Er.24) 10 mg PO DAILY [facility] Last Admin: 06/02/22 09:52 Dose: 10 mg Sodium Chloride (0.9 % Sodium Chloride Flush 3 Ml Syringe) 3 ml IVFLUSH QSHIFT [facility] Last Admin: 06/02/22 23:40 Dose: 3 ml Tramadol HCl (Tramadol Hcl 50 Mg Tablet) 50 mg PO BID PRN PRN Reason: Pain severe Last Admin: 06/02/22 22:03 Dose: 50 mg Home Medications Medication Instructions Recorded Confirmed Last Taken Type acetaminophen 325 mg tablet 325 mg PO QID PRN Pain 06/01/22 06/01/22 Unknown History amlodipine 5 mg tablet 1 tab PO DAILY 06/01/22 06/01/22 06/01/22 09:00 History ammonium lactate 12 % lotion 1 applic topical DAILY 06/01/22 06/01/22 Unknown History aspirin 81 mg tablet,delayed 81 mg PO DAILY 06/01/22 06/01/22 06/01/22 09:00 History release atenolol 50 mg tablet 1 tab PO DAILY 06/01/22 06/01/22 06/01/22 09:00 History calcium carbonate 500 mg-vitamin 1 tab PO DAILY 06/01/22 06/01/22 06/01/22 09:00 History D3 10 mcg (400 unit) tablet (Calcium 500 + D) citalopram 20 mg tablet 1 tab PO DAILY 06/01/22 06/01/22 06/01/22 09:00 History digoxin 250 mcg (0.25 mg) tablet 1 tab PO DAILY 06/01/22 06/01/22 06/01/22 09:00 History famotidine 20 mg tablet 1 tab PO DAILY 06/01/22 06/01/22 Unknown History gabapentin 300 mg capsule 1 cap PO DAILY 06/01/22 06/01/22 06/01/22 09:00 History hydrochlorothiazide 25 mg tablet 1 tab PO DAILY 06/01/22 06/01/22 06/01/22 09:00 History oxybutynin chloride 5 mg tablet 1 tab PO BID 06/01/22 06/01/22 06/01/22 09:00 History tacrolimus 0.03 % topical ointment 1 applic topical BID 06/01/22 06/01/22 06/01/22 09:00 History tramadol 50 mg tablet 1 tab PO BID PRN Pain 06/01/22 06/01/22 Unknown History Physical Exam Vital Signs: Vital Signs: Last Vital Signs Temp 97.4 F 06/03/22 04:00 Pulse 83 06/03/22 07:34 Resp 16 06/03/22 07:34 BP 117/72 06/03/22 07:34 Pulse Ox 99 06/03/22 07:34 O2 Del Method 06/03/22 07:34 BMI result Body Mass Index 49.6 Const: General: comfortable and no acute distress Orientation/consciousness: patient oriented x3 HEENT: Other: Unremarkable Head: Yes normal to inspection Neck: Neck: Yes normal visual inspection Chest: Chest palpation & inspection: normal inspection of the chest Resp: Auscultation: clear to auscultation bilaterally Cardio: Palpation: normal PMI Heart sounds: S1 normal heart sound present, S2 normal heart sound present, no gallops, no murmurs and no rubs GI: Palpation (GI): Soft to palpation Back/Spine/Pelvis: Other: unremarkable Skin: General skin exam: no rashes or lesions noted Neuro: General: patient oriented x3 Extrem: Other: quite swollen, chronic skin changes, discoloration+ Psych: Mental Status: mental status grossly normal Objective Labs and Meds Result diagrams: 06/03/22 06:25 06/02/22 06:17 Lab results: Laboratory Results - last 24 hr 06/03/22 06/03/22 06:25 06:25 WBC 7.6 RBC 4.21 Hgb 13.3 Hct 39.8 MCV 94.5 MCH 31.6 MCHC 33.4 RDW 13.3 Plt Count 282 MPV 11.1 Absolute Nucleated RBC 0.000 Nucleated RBC % (auto) 0.0 C-Reactive Protein 4.80 H ECG Interpretation: EKG with atrial fibrillation at 60/Min; incomplete right bundle-branch block pattern; nonspecific ST-T changes. A prior EKG from 2019 also shows atrial fi brillation. Prior to that, in 2008, it was sinus. Assessment and Plan (1) Persistent atrial fibrillation: Status: Acute (2) Hypertension: Status: Acute (3) Lymphedema: Status: Acute (4) Cellulitis: Status: Acute Plan She has long-standing atrial fibrillation going back several years. She is maintained on atenolol and digoxin. Okay to continue the same. We need to check digoxin levels as it has not been checked recently. Otherwise, with regard to anticoagulation, her CHADS 2 VASc score 3, for age, female sex, hypertension. There are no obvious contraindications and hence we can start Eliquis. Echocardiogram for cardiac function assessment. Check digoxin levels. Discussed with Dr. Mercedes. Procedures Date of Service Date of Service: 06/03/22
[2022-06-03] MEDS: Gabapentin 300 MG CAPSULE PO (09:50)
[2022-06-03] MEDS: Digoxin 0.25 MG TABLET PO (09:50)
[2022-06-03] MEDS: Escitalopram Oxalate 10 MG TABLET PO (09:50)
[2022-06-03] MEDS: atenoloL 50 MG TABLET PO (09:50)
[2022-06-03] MEDS: hydroCHLOROthiazide 25 MG TABLET PO (09:50)
[2022-06-03] MEDS: Famotidine 20 MG TABLET PO (09:50)
[2022-06-03] MEDS: Aspirin Enteric Coated 81 MG TABLET.DR PO (09:51)
[2022-06-03] MEDS: Heparin Sodium,Porcine 5,000 UNIT/ML VIAL 5000 UNIT SUBCUT (09:51)
[2022-06-03] MEDS: amLODIPine Besylate 5 MG TABLET PO (09:59)
[2022-06-03] MEDS: 0.9 % Sodium Chloride Flush 3 ML SYRINGE IVFLUSH (09:59)
--- NOTE | 2022-06-03 11:20 | HO.PM.IMPN ---
Subjective Subjective Date of Service: 06/03/22 Interval History: Legs about the same No fever/chills No contraindication to AC Physical Exam Vital Signs: Vital Signs: Last Vital Signs Temp 97.4 F 06/03/22 04:00 Pulse 62 06/03/22 10:58 Resp 16 06/03/22 10:58 BP 129/65 06/03/22 10:58 Pulse Ox 95 06/03/22 10:58 O2 Del Method 06/03/22 10:58 BMI result Body Mass Index 49.6 Gen: in no acute distress HEENT: sclera anicteric, moist mucus membranes Neck: supple Lungs: clear to auscultation bilaterally Heart: regular rate and rhythm, no murmurs Abd: soft, non-tender, non-distended, obese Ext: extensive lymphedema, LLE with erythema Skin: warm/well-perfused Neuro: alert and oriented x3, no focal findings Psych: appropriate affect Objective Data Active Medications Acetaminophen (Acetaminophen 325 Mg Tablet) 650 mg PO Q6H PRN PRN Reason: Pain, Mild (Pain Scale 1-3) Last Admin: 06/02/22 23:51 Dose: 650 mg Documented By: DICK Amlodipine Besylate (Amlodipine Besylate 5 Mg Tablet) 5 mg PO DAILY [facility]; Protocol Last Admin: 06/03/22 09:59 Dose: 5 mg Documented By: GIULIANA Apixaban (Apixaban 5 Mg Tablet) 5 mg PO BID [facility] Aspirin (Aspirin Enteric Coated 81 Mg Tablet.) 81 mg PO DAILY [facility] Last Admin: 06/03/22 09:51 Dose: 81 mg Documented By: GIULIANA Atenolol (Atenolol 50 Mg Tablet) 50 mg PO DAILY [facility]; Protocol Last Admin: 06/03/22 09:50 Dose: 50 mg Documented By: GIULIANA Digoxin (Digoxin 0.25 Mg Tablet) 0.25 mg PO DAILY [facility] Last Admin: 06/03/22 09:50 Dose: 0.25 mg Documented By: GIULIANA Docusate Sodium (Docusate Sodium 100 Mg Capsule) 100 mg PO DAILY PRN PRN Reason: Constipation Escitalopram Oxalate (Escitalopram Oxalate 10 Mg Tablet) 10 mg PO DAILY [facility] Last Admin: 06/03/22 09:50 Dose: 10 mg Documented By: GIULIANA Famotidine (Famotidine 20 Mg Tablet) 20 mg PO DAILY [facility] Last Admin: 06/03/22 09:50 Dose: 20 mg Documented By: GIULIANA Gabapentin (Gabapentin 300 Mg Capsule) 300 mg PO DAILY [facility] Last Admin: 06/03/22 09:50 Dose: 300 mg Documented By: GIULIANA Hydrochlorothiazide (Hydrochlorothiazide 25 Mg Tablet) 25 mg PO DAILY [facility]; Protocol Last Admin: 06/03/22 09:50 Dose: 25 mg Documented By: GIULIANA Cefazolin Sodium/Dextrose (Ancef) 2 gm in 50 mls @ 100 mls/hr IV Q8H [facility] Last Infusion: 06/03/22 11:17 Dose: 0 mls/hr Documented By: DEBORAH Ibuprofen (Ibuprofen 400 Mg Tablet) 400 mg PO Q6H PRN PRN Reason: back pain Last Admin: 06/02/22 22:05 Dose: 400 mg Documented By: DICK Ondansetron HCl (Ondansetron Hcl 4 Mg/2 Ml Vial) 4 mg IVPUSH Q8H PRN PRN Reason: Nausea and Vomiting Oxybutynin Chloride (Oxybutynin Chloride Er 5 Mg Tab.Er.24) 10 mg PO DAILY [facility] Last Admin: 06/03/22 09:49 Dose: 10 mg Documented By: GIULIANA Sodium Chloride (0.9 % Sodium Chloride Flush 3 Ml Syringe) [facility] Last Admin: 06/03/22 09:59 Dose: 3 ml Documented By: GIULIANA Tramadol HCl (Tramadol Hcl 50 Mg Tablet) 50 mg PO BID PRN PRN Reason: Pain severe Last Admin: 06/02/22 22:03 Dose: 50 mg Documented By: DICK Labs CBC & Chem 7: 06/03/22 06:25 06/02/22 06:17 Labs: Laboratory Results - last 24 hr 06/03/22 06/03/22 06:25 06:25 MCV 94.5 MCH 31.6 MCHC 33.4 RDW 13.3 Plt Count 282 MPV 11.1 Absolute Nucleated RBC 0.000 Nucleated RBC % (auto) 0.0 C-Reactive Protein 4.80 H Microbiology Microbiology Results: Microbiology 06/01/22 19:01 Blood Culture - Preliminary Blood - Venous No growth after 24 hours. 06/01/22 18:23 Blood Culture - Preliminary Blood - Venous No growth after 24 hours. Assessment and Plan (1) Cellulitis: Status: Acute Plan d#3 67yo F with MS, AF but not on AC, lymphedema presenting with worsening redness/swelling LLE # acute cellulitis - failed outpt ABX, now on cefazolin d#3, follow BCx, WBCs improved # lymphedema - wound care consultation # ?seroma R groin - CT pelvis, surgery consult pending # chronic AF - Cardiology consulted - continue digoxin + atenolol; check digoxin trough in AM - [id number] VASc score 3, for age, female sex, HTN- start apixaban in the absence of contraindications - TTE # mood disorder - escitalopram # HTN - continue amlodipine + atenolol + HCTZ # VTE ppx: UFH In my clinical judgment, the patient requires continued inpatient hospitalization for the following reasons: IV ABX Quality Stroke Does the patient have a stroke diagnosis?: No VTE Prior VTE?: No VTE Risk Level:: Medical - moderate - high VTE Device Contraindication: Treatment Not Indicated VTE Drug Contraindication: N/A - Med Ordered
--- NOTE | 2022-06-03 12:57 | P.CONGS_ITS ---
History of Present Illness Consult details Consult date: 06/03/22 Requesting physician: Charlie Mercedes Narrative: 67 holley old female with leg cellulitis with baseline lymhedema who had venous u/s which showed a fulid collection in right groin. pt denies any trauma to the area and is not symptomatic. CT scan shows collection as simple fluid Pt says she has never used pumps for her lymphedema Review of Systems Review of Systems: Yes all other systems are reviewed and are negative PMFSH Past Medical History Medical History (Updated 06/03/22 @ 13:08 by Anne Soler MD) Afib Chronic acquired lymphedema Hypertension Multiple sclerosis Family History Family History (Updated 06/02/22 @ 05:54 by Conrad Solano MD) Other No family history of coronary artery disease Surgical History Surgical History No pertinent past surgical history Social History Social History Smoked in Last 30 Days: No Use of substances other than those prescribed or required for medical reasons: No Advance Directives: No Advance Directives Information Provided: No service: No Current occupational status: retired Meds Allergies Allergy/AdvReac Type Severity Reaction Status Date / Time codeine [Codeine] Allergy Mild ITCH Unverified 04/14/20 16:27 lisinopril [Lisinopril] Allergy Unknown VOMITING Unverified 04/14/20 16:27 Active Medications: Current Medications Acetaminophen (Acetaminophen 325 Mg Tablet) 650 mg PO Q6H PRN PRN Reason: Pain, Mild (Pain Scale 1-3) Last Admin: 06/02/22 23:51 Dose: 650 mg Amlodipine Besylate (Amlodipine Besylate 5 Mg Tablet) 5 mg PO DAILY [facility]; Protocol Last Admin: 06/03/22 09:59 Dose: 5 mg Apixaban (Apixaban 5 Mg Tablet) 5 mg PO BID [facility] Aspirin (Aspirin Enteric Coated 81 Mg Tablet.) 81 mg PO DAILY [facility] Last Admin: 06/03/22 09:51 Dose: 81 mg Atenolol (Atenolol 50 Mg Tablet) 50 mg PO DAILY [facility]; Protocol Last Admin: 06/03/22 09:50 Dose: 50 mg Digoxin (Digoxin 0.25 Mg Tablet) 0.25 mg PO DAILY [facility] Last Admin: 06/03/22 09:50 Dose: 0.25 mg Docusate Sodium (Docusate Sodium 100 Mg Capsule) 100 mg PO DAILY PRN PRN Reason: Constipation Escitalopram Oxalate (Escitalopram Oxalate 10 Mg Tablet) 10 mg PO DAILY [facility] Last Admin: 06/03/22 09:50 Dose: 10 mg Famotidine (Famotidine 20 Mg Tablet) 20 mg PO DAILY [facility] Last Admin: 06/03/22 09:50 Dose: 20 mg Gabapentin (Gabapentin 300 Mg Capsule) 300 mg PO DAILY [facility] Last Admin: 06/03/22 09:50 Dose: 300 mg Hydrochlorothiazide (Hydrochlorothiazide 25 Mg Tablet) 25 mg PO DAILY [facility]; Protocol Last Admin: 06/03/22 09:50 Dose: 25 mg Cefazolin Sodium/Dextrose (Ancef) 2 gm in 50 mls @ 100 mls/hr IV Q8H [facility] Last Infusion: 06/03/22 11:17 Dose: Infused Ibuprofen (Ibuprofen 400 Mg Tablet) 400 mg PO Q6H PRN PRN Reason: back pain Last Admin: 06/02/22 22:05 Dose: 400 mg Ondansetron HCl (Ondansetron Hcl 4 Mg/2 Ml Vial) 4 mg IVPUSH Q8H PRN PRN Reason: Nausea and Vomiting Oxybutynin Chloride (Oxybutynin Chloride Er 5 Mg Tab.Er.24) 10 mg PO DAILY [facility] Last Admin: 06/03/22 09:49 Dose: 10 mg Sodium Chloride (0.9 % Sodium Chloride Flush 3 Ml Syringe) [facility] Last Admin: 06/03/22 09:59 Dose: 3 ml Tramadol HCl (Tramadol Hcl 50 Mg Tablet) 50 mg PO BID PRN PRN Reason: Pain severe Last Admin: 06/02/22 22:03 Dose: 50 mg Home Medications Medication Instructions Recorded Confirmed Last Taken Type acetaminophen 325 mg tablet 325 mg PO QID PRN Pain 06/01/22 06/01/22 Unknown History amlodipine 5 mg tablet 1 tab PO DAILY 06/01/22 06/01/22 06/01/22 09:00 History ammonium lactate 12 % lotion 1 applic topical DAILY 06/01/22 06/01/22 Unknown History aspirin 81 mg tablet,delayed 81 mg PO DAILY 1106/01/22 06/01/22 09:00 History release atenolol 50 mg tablet 1 tab PO DAILY 06/01/22 06/01/22 06/01/22 09:00 History calcium carbonate 500 mg-vitamin 1 tab PO DAILY 06/01/22 06/01/22 06/01/22 09:00 History D3 10 mcg (400 unit) tablet (Calcium 500 + D) citalopram 20 mg tablet 1 tab PO DAILY 06/01/22 06/01/22 06/01/22 09:00 History digoxin 250 mcg (0.25 mg) tablet 1 tab PO DAILY 06/01/22 06/01/22 06/01/22 09:00 History famotidine 20 mg tablet 1 tab PO DAILY 06/01/22 06/01/22 Unknown History gabapentin 300 mg capsule 1 cap PO DAILY 06/01/22 06/01/22 06/01/22 09:00 History hydrochlorothiazide 25 mg tablet 1 tab PO DAILY 06/01/22 06/01/22 06/01/22 09:00 History oxybutynin chloride 5 mg tablet 1 tab PO BID 06/01/22 06/01/22 06/01/22 09:00 History tacrolimus 0.03 % topical ointment 1 applic topical BID 06/01/22 06/01/22 06/01/22 09:00 History tramadol 50 mg tablet 1 tab PO BID PRN Pain 06/01/22 06/01/22 Unknown History Physical Exam Vital Signs: Vital Signs: Last Vital Signs Temp 97.4 F 06/03/22 04:00 Pulse 62 06/03/22 10:58 Resp 16 06/03/22 10:58 BP 129/65 06/03/22 10:58 Pulse Ox 95 06/03/22 10:58 O2 Del Method 06/03/22 10:58 BMI result Body Mass Index 49.6 Const: General: cooperative, healthy appearing, comfortable and no acute distress Skin: Other: bilateral lower extremity swollen and enlarged as lymphedema bumpy skin with classic look the left side is worse than right there is redness which pt says is about the same - left worse than right no mass or tenderness noted with palpation in groin but pt is very obese and this area is a little hard to examine. no overlying skin changes Results Labs Result diagrams: 06/03/22 06:25 06/02/22 06:17 Labs: Abnormal lab results 06/03/22 Range/Units 06:25 C-Reactive Protein 4.80 H (< or = 0.50) mg/dL Short CBC 06/03/22 Range/Units 06:25 WBC 7.6 (4.8-10.8) X10*3/uL Hgb 13.3 (12.0-16.0) g/dl Hct 39.8 (37.0-47.0) % Plt Count 282 (160-400) X10*3/uL All other labs normal. Imaging CT scan - pelvis: image reviewed Assessment and Plan (1) Lymphedema: Status: Acute (2) Seroma: Status: Acute Plan 67 holley old female with baseline lymphedema issues bilateral lower extemities leading to cellulitis - now imaging reveals right groin fluid collection - simple appearance no abscess-? etiology as pt is not sympotmatic. would not do further imaging or treatment just follow conservatively for right groin collection as for lymphedema she would benefit from lymphedema pumps - dr Heredia is seeing pts in office for these. consider outpt consult for that. Procedures Date of Service Date of Service: 06/03/22
--- NOTE | 2022-06-03 17:49 | PC.NURSE ---
RN-RN report given.
[2022-06-03] MEDS: Apixaban 5 MG TABLET PO (20:20)
[2022-06-04] MEDS: 0.9 % Sodium Chloride Flush 3 ML SYRINGE IVFLUSH ×2 (00:45→07:57)
[2022-06-04] MEDS: ceFAZolin Sodium/Dextrose,Iso 2 GM/50 ML PIGGYBACK IV ×2 (00:45→07:59)
[2022-06-04] MEDS: traMADoL HCL 50 MG TABLET PO (03:31)
[2022-06-04 04:00] VITALS: BP 148/63; PULSE 85; RESP 18; TEMP 36.3; O2SAT 95
[2022-06-04 06:29] LABS: Hematocrit 40.3 % (37.0-47.0); Hemoglobin 13.2 g/dl (12.0-16.0); Mean Corpuscular HGB Conc 32.8 g/dl (31.0-35.0); Mean Corpuscular Hemoglobin 30.8 pg (27.0-33.0); Mean Corpuscular Volume 93.9 fL (80.0-98.0); Mean Platelet Volume 11.2 fL (9.4-12.3); Platelet Count 310 X10*3/uL (160-400); Red Blood Count 4.29 X10*6/uL (4.20-5.50); Red Cell Distribution Width 13.1 % (11.0-16.0); White Blood Count 10.2 X10*3/uL (4.8-10.8)
[2022-06-04 06:35] LABS: Digoxin 0.7 ng/mL (0.8-2.0)
[2022-06-04 06:37] LABS: C Reactive Protein 3.66 mg/dL (< or = 0.50)
--- NOTE | 2022-06-04 07:00 | CA_ITS ---
Transthoracic Echocardiogram Patient (Last, First, Middle): Mark Garcia, Gender: Female Date of : 1955 Age: 67 Procedure Date: 06/04/2022 Procedure Type: Transthoracic Echocardiogram Location: S3E Height: 160.02 cm Weight: 127.01 kg BSA: 2.23 m2 Heart Rate: bpm BP: 148 / 63 mmHg Electronic Component Processor: SB Referring MD: Charlie Mercedes MD Symptoms: af Study Quality: Adequate ECG Rhythm: Atrial Fibrillation Conclusions: - Normal left ventricular size and systolic function. There is mildly increased left ventricular wall thickness. The visually estimated ejection fraction is between 60-65%. - Diastolic function is indeterminate on the basis of available data. - Normal right ventricular cavity size and systolic function. - The left atrium is mildly dilated. There is an interatrial septal aneurysm seen bowing to the right. Interatrial shunt cannot be excluded by color Doppler. RA is dilated. - Moderately elevated right atrial pressure. Mild pulmonary hypertension is present. - There is mild dilatation of the ascending aorta measuring 3.40 cm. Findings Left Ventricle Normal left ventricular size and systolic function. There is mildly increased left ventricular wall thickness. The visually estimated ejection fraction is between 60-65%. There is no evidence of regional wall motion abnormalities. Diastolic function is indeterminate on the basis of available data. Right Ventricle Normal right ventricular cavity size and systolic function. Atria The left atrium is mildly dilated. There is an interatrial septal aneurysm seen bowing to the right. Interatrial shunt cannot be excluded by color Doppler. RA is dilated. Aortic Valve Normal aortic valve structure and function. There is no aortic valve stenosis. There is trace (trivial) aortic valve regurgitation. Mitral Valve The mitral valve appears normal. There is no mitral valve regurgitation. There is no mitral valve stenosis. Pulmonic Valve Normal pulmonic valve structure and function. There is trace pulmonic valve regurgitation. Tricuspid Valve The right ventricular systolic pressure is 37 mmHg. Moderately elevated right atrial pressure. Mild pulmonary hypertension is present. Great Vessels There is mild dilatation of the ascending aorta measuring 3.40 cm. The visualized portions of the pulmonary artery and branches are normal. Venous The inferior vena cava is dilated and collapses less than 50% with inspiration. Pericardium/Pleural There is no evidence of pericardial effusion. Measurements 2D Linear Measurements IVSd: 1.28 0.6-0.9/0.6-1.0 cm LVIDd: 4.09 3.9-5.3/4.2-5.9 cm LVIDd Index: 1.83 2.4-3.2/2.2-3.1 cm/m2 LVIDs: 2.02 2.0-3.6 cm LVPWd: 1.11 0.7-1.1 cm LA Diam: 4.20 2.7-3.8/3.0-4.0 cm LAIDs Index: 1.88 1.5-2.3 cm/m2 LV Mass: 211.83 67-162/88-224 g LV Mass Index: 94.99 43-95/49-115 g/m2 LVOT Diam: 2.10 3.0+(-)1.3 cm 2D Systolic Function EF 4C: 66.20 >55% EF 2C: 52.90 >55% EF BiP: 59.80 >55% Mitral Valve MV Pk E: 1.43 Aortic Valve AoV Pk Maximus: 1.47 AoV Pk Grad: 9.00 TERE: 2.50 AI Pk Maximus: 3.98 AI King: 1.68 LVOT LVOT Pk Maximus: 1.19 LVOT Mn Maximus: 0.82 LVOT VTI: 0.25 LVOT Pk Grad: 6.00 LVOT Mn Grad: 3.00 LVOT Diam: 2.10 LVOT Area: 3.46 Diastolic Function MV Pk E: 1.43 Right Ventricle TAPSE (mm): 15.80 TVS' Maximus: 12.90 Tricuspid Valve TR Pk Maximus: 2.37 TR Pk Grad: 22.00 RA Press: 15.00 RVSP: 37.00 Great Vessels Aorta Sinus of Valsalva: 3.00 2.0-3.5 cm Ao Asc: 3.40 2.1-3.4 cm Pulmonary Veins Pulm Vein S/D 1.50 Pulmonary Valve PV Pk Maximus: 0.84 Peak PV Grad: 3.00 Updated in Other Vendor System with Status of Final Darwin Briggs MD electronically signed on 06/04/2022 1:18:17 PM with status of Final
[2022-06-04 07:29] VITALS: BP 141/66; PULSE 85; RESP 18; TEMP 36.7; O2SAT 95
[2022-06-04] MEDS: Gabapentin 300 MG CAPSULE PO (07:53)
[2022-06-04] MEDS: hydroCHLOROthiazide 25 MG TABLET PO (07:53)
[2022-06-04] MEDS: Famotidine 20 MG TABLET PO (07:53)
[2022-06-04] MEDS: Digoxin 0.25 MG TABLET PO (07:53)
[2022-06-04] MEDS: Apixaban 5 MG TABLET PO (07:53)
[2022-06-04] MEDS: Escitalopram Oxalate 10 MG TABLET PO (07:54)
[2022-06-04] MEDS: Aspirin Enteric Coated 81 MG TABLET.DR PO (07:54)
[2022-06-04] MEDS: amLODIPine Besylate 5 MG TABLET PO (07:54)
[2022-06-04] MEDS: atenoloL 50 MG TABLET PO (09:53)
--- NOTE | 2022-06-04 11:13 | PM.PNCARD ---
Subjective Subjective Date of Service: 06/04/22 Interval history: Seen examined at bedside. Cellulitis on the legs with lymphedema and on antibiotics. No palpitations. Physical Exam Vital Signs: Last Vital Signs Temp 98.0 F 06/04/22 07:29 Pulse 85 06/04/22 07:29 Resp 18 06/04/22 07:29 BP 141/66 H 06/04/22 07:29 Pulse Ox 95 06/04/22 07:29 O2 Del Method 06/04/22 07:29 BMI result Body Mass Index 49.6 GENERAL APPEARANCE: in no acute distress, pleasant. NECK: no carotid bruit, no jugular venous distention. SKIN: no suspicious lesions, warm and dry. HEART: no murmurs, irregular rate and rhythm. LUNGS: clear to auscultation bilaterally. ABDOMEN: soft, nontender. EXTREMITIES: Bilateral lymphedema. Cellulitis left leg. PERIPHERAL PULSES: equal. NEUROLOGIC: No gross deficits, AAO X 3 Objective Labs and Meds Result diagrams: 06/04/22 05:36 06/02/22 06:17 Lab results: Laboratory Results - last 24 hr 06/04/22 06/04/22 06/04/22 05:36 05:36 05:36 WBC 10.2 RBC 4.29 Hgb 13.2 Hct 40.3 MCV 93.9 MCH 30.8 MCHC 32.8 RDW 13.1 Plt Count 310 MPV 11.2 Absolute Nucleated RBC 0.000 Nucleated RBC % (auto) 0.0 C-Reactive Protein 3.66 H Digoxin 0.7 L Progress Note: A&P Assessment and plan (1) Persistent atrial fibrillation: Status: Acute (2) Hypertension: Status: Acute Plan 67-year-old female with cellulitis lower extremity was found to have atrial fibrillation. She is asymptomatic. Rate controlled currently on atenolol. Will change her digoxin to every other day. Eliquis for anticoagulation. Blood pressure control is reasonable currently. Will review echocardiography. Thank you for allowing me to participate in the care of your patient. Please feel free to contact me if you have any questions. Time Spent With Patient Time: Total time spent is greater than 50% in coordination of care (as documented) at patient's floor/unit and/or counseling patient: Progress Note: Quality Stroke Does the patient have a stroke diagnosis?: No Procedures Date of Service Date of Service: 06/04/22
[2022-06-04 11:34] VITALS: BP 119/59; PULSE 60; RESP 18; TEMP 36.9; O2SAT 97
--- NOTE | 2022-06-04 12:42 | W.MHC.F2F ---
Service Date Service Date: 06/04/22 Encounter Date of encounter: 06/04/22 Reasons for Services Signs and symptoms assessed: lymphedema cellulitis atrial fibrillation Reason for residential: medication management, medication treatment and teach disease management Reason for physical therapy: home safety and mobility, therapeutic exercises, gait/transfer training, assess need for DME, ADL training and energy conservation MD Overseeing Care: Harshal Thompson Homebound: Leaving the home is medically contraindicated at this time without the asist of a device and/or another person due th the listed conditions above and below. Reason homebound: immunosuppression / infection risk, weakness related to hospital stay and other (severe lymphedema) Certification: Based on the above findings, I certify that this patient is confined to the home and needs intermittent residential care, physical therapy and/or speech therapy, or continues to need occupational therapy. The patient is under my care, and I have initiated the establishment of the plan of care. The patient will be followed by a physician who will periodically review the plan of care.
[2022-06-04] MEDS: Acetaminophen 325 MG TABLET 650 MG PO (13:18)
--- NOTE | 2022-06-04 13:30 | P.DS_ITS ---
DS: Providers Provider Date of Service: 06/04/22 Date of admission: 06/01/22 20:13 Date of discharge: 06/04/22 Primary care physician: Harshal Thompson MD Consults: 06/02/22 08:11 Consult to General Surgery Routine Consulting Provider: [facility] General Surgeons Reason for consultation: 6.2 x 1.7 x 5.5 cm oblong-shaped anechoic fluid in groin- seroma? 06/02/22 15:27 Consult to Cardiology Routine Consulting Provider: Rudy Swanson Reason for consultation: AF, why not on AC? 06/04/22 09:30 Consult to Infectious Diseases Routine Consulting Provider: Carolyn Ortiz Reason for consultation: cellulitis on lypheema DS: Diagnosis Discharge Diagnosis (1) Persistent atrial fibrillation: Status: Acute (2) Cellulitis: Status: Acute (3) Lymphedema: Status: Acute (4) Seroma: Status: Acute DS: Summary Hospital Course Hospital Course: from admission History and Physical by hospitalist Conrad Solano, 06/01/22: 67-year-old female with past medical history of MS, AFib, chronic lymphadenopathy, hypertension, chronic pain, presents to the hospital with complaints of swelling in her lower extremity.? Patient is here with her sister, according to the sister she has short-term memory loss therefore sisters her healthcare proxy and answer some of the questions per.? According to the patient and sister she has had chronic lower extremity edema due to lymphadenopathy, but for the past few weeks the swelling has worsened on the left lower extremity with significant redness, as well as weeping clear liquid.? Patient herself denies any fever or chills, reports the pain has increased in her left lower extremity, denies any fever no chills, has no chest pain, no palpitations, no abdominal pain nausea or vomiting, no diarrhea or constipation, no urinary symptoms.? She reports that she was started on p.o. antibiotics for for her leg and completed the course but did not improved and got worse.? Under interval to the ED patient hemodynamically stable with no significant abnormal vitals ?labs are significant for WBC count of 10.3, CRP of 2.86, Venous duplex of the lower extremity was done which showed no DVT demonstrated in the bilateral lower extremities within the limitation of this exam due to patient's body habitus, 6.2 x 1.7 x 5.7 cm collection in the groin possible seroma, but the exam quality is limited due to patient's body habitus. Patient started on IV antibiotics will be admitted for further management 67yo F with MS, AF not on AC, lymphedema presenting with worsening redness/swelling LLE was admitted for acute cellulitis. She was treated with IV cefazolin. Blood cultures negative and leukocytosis resolved. As for lymphedema, General Surgery/Wound Care was consulted and outpatient consultation with Vascular Surgery for lymphedema pump is suggested. US and CT scanning of the pelvis showed a simple seroma. As for chronic atrial fibrillation, Cardiology was consulted. [id number] VASc score 3, for age, female sex, HTN; she was started apixaban as there are no contraindications to anticoagulation. Digoxin was decreased from 250 mcg daily to 125 mcg every other day. She was discharged home on PO cefadroxil and VNA services were arranged. Time Spent with Patient Time attestation: Total time spent providing and/or coordinating discharge services: 35 Discharge coordination time: Greater than 30 minutes Quality: Safe Use of Opioids Does Pt have an Active Cancer Diagnosis on the Problem List?: No Quality: Stroke Does the patient have a stroke diagnosis?: No Physical Exam Vital Signs: Vital Signs: Last Vital Signs Temp 98.4 F 06/04/22 11:34 Pulse 60 06/04/22 11:34 Resp 18 06/04/22 11:34 BP 119/59 L 06/04/22 11:34 Pulse Ox 97 06/04/22 11:34 O2 Del Method 06/04/22 11:34 BMI result Body Mass Index 49.6 Gen: in no acute distress HEENT: sclera anicteric, moist mucus membranes Neck: supple Lungs: clear to auscultation bilaterally Heart: regular rate and rhythm, no murmurs Abd: soft, non-tender, non-distended, obese Ext: extensive lymphedema, LLE with minimal erythema Skin: warm/well-perfused Neuro: alert and oriented x3, no focal findings Psych: appropriate affect DS: Data Data Completed and Pending Completed studies during hospitalization [Text1]: Laboratory Results WBC 10.2 X10*3/uL (4.8-10.8) 06/04/22 05:36 RBC 4.29 X10*6/uL (4.20-5.50) 06/04/22 05:36 Hgb 13.2 g/dl (12.0-16.0) 06/04/22 05:36 Hct 40.3 % (37.0-47.0) 06/04/22 05:36 MCV 93.9 fL (80.0-98.0) 06/04/22 05:36 MCH 30.8 pg (27.0-33.0) 06/04/22 05:36 MCHC 32.8 g/dl (31.0-35.0) 06/04/22 05:36 RDW 13.1 % (11.0-16.0) 06/04/22 05:36 Plt Count 310 X10*3/uL (160-400) 06/04/22 05:36 MPV 11.2 fL (9.4-12.3) 06/04/22 05:36 Immature Gran % (Auto) 0.4 % (0.0-0.4) 06/02/22 06:17 Neut % (Auto) 77.2 % (45-73) H 06/02/22 06:17 Lymph % (Auto) 11.1 % (20-40) L 06/02/22 06:17 [place] % (Auto) 8.5 % (2-11) 06/02/22 06:17 Eos % (Auto) 1.9 % (0-4) 06/02/22 06:17 Baso % (Auto) 0.9 % (0-2) 06/02/22 06:17 Lymph # (Auto) 1.3 X10*3/uL (1.2-4.9) 06/02/22 06:17 [place] # (Auto) 1.0 X10*3/uL (0.1-1.2) 06/02/22 06:17 Eos # (Auto) 0.2 X10*3/uL (0.0-0.4) 06/02/22 06:17 Baso # (Auto) 0.1 X10*3/uL (0.0-0.2) 06/02/22 06:17 Abs Immat Gran (auto) 0.05 X10*3/uL (0.00-0.03) H 06/02/22 06:17 Absolute Neuts (auto) 8.9 x10*3/uL (2.0-8.3) H 06/02/22 06:17 Absolute Nucleated RBC 0.000 X10*3/uL (0.0-0.012) 06/04/22 05:36 Nucleated RBC % (auto) 0.0 /100WBC (0.0-0.2) 06/04/22 05:36 Sodium 140 mmol/L (135-145) 06/02/22 06:17 Potassium 3.5 mmol/L (3.3-5.1) 06/02/22 06:17 Chloride 101 mmol/L (96-108) 06/02/22 06:17 Carbon Dioxide 26 mmol/L (22-29) 06/02/22 06:17 Anion Gap 17 (12-20) 06/02/22 06:17 BUN 8 mg/dL (9-16) L 06/02/22 06:17 Creatinine 0.66 mg/dL (0.5-1.4) 06/02/22 06:17 Estim Creat Clear Calc 110.3 06/02/22 06:17 Estimated GFR > 60 06/02/22 06:17 Random Glucose 116 mg/dL (60-115) H 06/02/22 06:17 Lactic Acid 1.2 mmol/L (0.5-2.0) 06/01/22 18:23 Calcium 8.9 mg/dL (8.4-10.2) 06/02/22 06:17 C-Reactive Protein 3.66 mg/dL (< or = 0.50) H 06/04/22 05:36 Digoxin 0.7 ng/mL (0.8-2.0) L 06/04/22 05:36 COVID-19 (ALFONSO) Negative (Negative) 06/01/22 18:23 COVID-19 Clin Com See Note 06/01/22 18:23 Impressions Venous Duplex 06/01/22 20:34 IMPRESSION: 1. No DVT demonstrated in the bilateral lower extremities within the limitations of this exam. 2. 6.2 x 1.7 x 5.5 cm oblong-shaped anechoic avascular fluid collection in the right groin, possibly small seroma. 3. Exam quality is limited due to patient body habitus. If the patient's symptoms persist, followup ultrasound in 5 days 7 days might be of value to exclude proximal propagation from a non-visualized calf vein. Pelvis CT 06/02/22 19:15 IMPRESSION: Curvilinear hypodense structure right groin corresponding to ultrasound finding is most likely a small seroma, less likely lymphocele. Correlate with any previous vascular intervention. Mild constipation. TTE 06/04/22 - Normal left ventricular size and systolic function. There is mildly increased left ventricular wall thickness. The visually estimated ejection fraction is between 60-65%. - Diastolic function is indeterminate on the basis of available data. - Normal right ventricular cavity size and systolic function. - The left atrium is mildly dilated. There is an interatrial septal aneurysm seen bowing to the right. Interatrial shunt cannot be excluded by color Doppler. RA is dilated. - Moderately elevated right atrial pressure. Mild pulmonary hypertension is present. - There is mild dilatation of the ascending aorta measuring 3.40 cm. Discharge Plan Discharge Patient Disposition: Home Health Service Discharge Diagnosis: cellulitis, lymphedema, atrial fibrillation Referrals: Harshal Thompson MD [Primary Care Provider] - 1 Week Micky Heredia MD [Physician] - 1 Week Rudy Swanson MD [Physician] - 1 Week Discharge Medications: New Eliquis 5 mg Tablet 5 mg PO BID Qty: 60 0RF digoxin 125 mcg (0.125 mg) Tablet 0.125 mg PO Q2D Qty: 30 0RF cefadroxil 1 gram tablet 1,000 mg PO DAILY 5 Days Qty: 5 0RF Continued ammonium lactate 12 % lotion 1 applic topical DAILY amlodipine 5 mg tablet 1 tab PO DAILY tramadol 50 mg tablet 1 tab PO BID PRN (Reason: Pain) citalopram 20 mg tablet 1 tab PO DAILY famotidine 20 mg tablet 1 tab PO DAILY tacrolimus 0.03 % ointment 1 applic topical BID gabapentin 300 mg capsule 1 cap PO DAILY hydrochlorothiazide 25 mg tablet 1 tab PO DAILY oxybutynin chloride 5 mg tablet 1 tab PO BID atenolol 50 mg tablet 1 tab PO DAILY acetaminophen 325 mg Tablet 325 mg PO QID PRN (Reason: Pain) calcium carbonate-vitamin D3 [Calcium 500 + D] 500 mg-10 mcg (400 unit) Tablet 1 tab PO DAILY Discontinued digoxin 250 mcg (0.25 mg) tablet 1 tab PO DAILY aspirin [Aspir-81] 81 mg Tablet,Delayed Release (/Ec) 81 mg PO DAILY Discharge Orders: Discharge Order (Routine); Ordered 06/04/22 Ordered By: Charlie Mercedes Diet: Advance to usual diet Activity on Discharge: As tolerated Stand Alone Forms: Patient Portal Discharge page Care Plan Goals: cure of infection relief of lymphedema symptoms prevention of stroke Health Concerns: cellulitis, lymphedema, atrial fibrillation Plan of Treatment: cellulitis: take cefadroxil 1000 mg daily for 5 days lymphedema: referral to Vascular Surgery for lymphedema pumps atrial fibrillation: referral to Cardiology for ongoing managemement; start apixaban 5 mg twice daily to prevent strokes; reduce digoxin from 250 mcg daily to 125 mcg every OTHER day Assessment: See Discharge Summary.
--- NOTE | 2022-06-04 14:50 | MHC.CM.PN ---
Addendum entered by Vy Sin RN 06/04/22 16:10: noé [facility] can see within 24-72 hours of dc. [facility] made aware that noé is accepted for service patient and RN also aware Original Note: [facility] IS ONLY REFERRAL PLACED THAT IS OFFERING SERVICES. SOC IS ANTICIPATED THIS WEEKEND. PATIENT IS AWARE.
[2022-06-04 16:06] VITALS: BP 146/77; PULSE 66; RESP 18; TEMP 36.2; O2SAT 98
--- NOTE | 2022-06-04 16:08 | P.CNID_ITS ---
History of Present Illness Data of Consult Service Date: 06/04/22 Requesting physician: Charlie Mercedes Primary Care Provider: MD WILD Diaz Reason for consult: left leg cellulitis with lymphedema She presents with left leg weeping and erythema She has no fever or chills. She has had lymphedema for several years. Review of Systems Review of Systems: Yes all other systems are reviewed and are negative [facility] Past Medical History Medical History Afib Chronic acquired lymphedema Hypertension Multiple sclerosis Family History Family History Other No family history of coronary artery disease Family history: reviewed and not pertinent Surgical History Surgical History No pertinent past surgical history Social History Social History Household Members: None Housing: Assisted Living Facility Do you presently have visiting nurse or other home services: Yes Patient Tobacco Use Status: Former Tobacco user service: No Current occupational status: retired [employer] Allergies Allergy/AdvReac Type Severity Reaction Status Date / Time codeine [Codeine] Allergy Mild ITCH Unverified 04/14/20 16:27 lisinopril [Lisinopril] Allergy Unknown VOMITING Unverified 04/14/20 16:27 Active Medications: Current Medications Acetaminophen (Acetaminophen 325 Mg Tablet) 650 mg PO Q6H PRN PRN Reason: Pain, Mild (Pain Scale 1-3) Last Admin: 06/04/22 13:18 Dose: 650 mg Amlodipine Besylate (Amlodipine Besylate 5 Mg Tablet) 5 mg PO DAILY [facility]; Protocol Last Admin: 06/04/22 07:54 Dose: 5 mg Apixaban (Apixaban 5 Mg Tablet) 5 mg PO BID [facility] Last Admin: 06/04/22 07:53 Dose: 5 mg Aspirin (Aspirin Enteric Coated 81 Mg Tablet.Dr) 81 mg PO DAILY [facility] Last Admin: 06/04/22 07:54 Dose: 81 mg Atenolol (Atenolol 50 Mg Tablet) 50 mg PO DAILY [facility]; Protocol Last Admin: 06/04/22 09:53 Dose: 50 mg Digoxin (Digoxin 0.125 Mg Tablet) 0.125 mg PO Q2D [facility] Docusate Sodium (Docusate Sodium 100 Mg Capsule) 100 mg PO DAILY PRN PRN Reason: Constipation Escitalopram Oxalate (Escitalopram Oxalate 10 Mg Tablet) 10 mg PO DAILY [facility] Last Admin: 06/04/22 07:54 Dose: 10 mg Famotidine (Famotidine 20 Mg Tablet) 20 mg PO DAILY [facility] Last Admin: 06/04/22 07:53 Dose: 20 mg Gabapentin (Gabapentin 300 Mg Capsule) 300 mg PO DAILY [facility] Last Admin: 06/04/22 07:53 Dose: 300 mg Hydrochlorothiazide (Hydrochlorothiazide 25 Mg Tablet) 25 mg PO DAILY [facility]; Protocol Last Admin: 06/04/22 07:53 Dose: 25 mg Cefazolin Sodium/Dextrose (Ancef) 2 gm in 50 mls @ 100 mls/hr IV Q8H [facility] Last Infusion: 06/04/22 08:49 Dose: Infused Ibuprofen (Ibuprofen 400 Mg Tablet) 400 mg PO Q6H PRN PRN Reason: back pain Last Admin: 06/02/22 22:05 Dose: 400 mg Ondansetron HCl (Ondansetron Hcl 4 Mg/2 Ml Vial) 4 mg IVPUSH Q8H PRN PRN Reason: Nausea and Vomiting Oxybutynin Chloride (Oxybutynin Chloride Er 5 Mg Tab.Er.24) 10 mg PO DAILY [facility] Last Admin: 06/04/22 07:53 Dose: 10 mg Sodium Chloride (0.9 % Sodium Chloride Flush 3 Ml Syringe) 3 ml IVFLUSH QSHIFT [facility] Last Admin: 06/04/22 07:57 Dose: 3 ml Tramadol HCl (Tramadol Hcl 50 Mg Tablet) 50 mg PO BID PRN PRN Reason: Pain severe Last Admin: 06/04/22 03:31 Dose: 50 mg Home Medications Medication Instructions Recorded Confirmed Last Taken Type acetaminophen 325 mg tablet 325 mg PO QID PRN Pain 06/01/22 06/01/22 Unknown History amlodipine 5 mg tablet 1 tab PO DAILY 06/01/22 06/01/22 06/01/22 09:00 History ammonium lactate 12 % lotion 1 applic topical DAILY 06/01/22 06/01/22 Unknown History atenolol 50 mg tablet 1 tab PO DAILY 06/01/22 06/01/22 06/01/22 09:00 History calcium carbonate 500 mg-vitamin 1 tab PO DAILY 06/01/22 06/01/22 06/01/22 09:00 History D3 10 mcg (400 unit) tablet (Calcium 500 + D) citalopram 20 mg tablet 1 tab PO DAILY 06/01/22 06/01/22 06/01/22 09:00 History famotidine 20 mg tablet 1 tab PO DAILY 06/01/22 06/01/22 Unknown History gabapentin 300 mg capsule 1 cap PO DAILY 06/01/22 06/01/22 06/01/22 09:00 History hydrochlorothiazide 25 mg tablet 1 tab PO DAILY 06/01/22 06/01/22 06/01/22 09:00 History oxybutynin chloride 5 mg tablet 1 tab PO BID 06/01/22 06/01/22 06/01/22 09:00 H istory tacrolimus 0.03 % topical ointment 1 applic topical BID 06/01/22 06/01/22 06/01/22 09:00 History tramadol 50 mg tablet 1 tab PO BID PRN Pain 06/01/22 06/01/22 Unknown History Physical Exam Vital Signs: Vital Signs: Last Vital Signs Temp 98.4 F 06/04/22 11:34 Pulse 60 06/04/22 11:34 Resp 18 06/04/22 11:34 BP 119/59 L 06/04/22 11:34 Pulse Ox 97 06/04/22 11:34 O2 Del Method 06/04/22 11:34 BMI result Body Mass Index 49.6 Const: General: cooperative HEENT: Head: Yes normal to inspection Face and sinus: Yes normal facial exam Mouth: Normal oral and palatal mucosa present Teeth and gingiva: dentition normal Eyes: General: appearance normal, both eyes and all related structures Pupils: Equal, round and reactive pupils present Resp: Effort & Inspection: normal respiratory effort Cardio: Rate: regular rate Rhythm: regular rhythm GI: Palpation (GI): Soft to palpation and nontender : General: Yes no CVA tenderness Back/Spine/Pelvis: Back: no CVA tenderness Skin: General skin exam: no rashes or lesions noted Neuro: General: moves all extremities Cranial nerves: Yes Equal, round and reactive pupils present Extrem: Other: lymphedematous, mild erythema cellulitis left leg Psych: Appearance: grossly normal Results Labs CBC & Chem 7: 06/04/22 05:36 06/02/22 06:17 Labs: Short CBC 06/04/22 Range/Units 05:36 WBC 10.2 (4.8-10.8) X10*3/uL Hgb 13.2 (12.0-16.0) g/dl Hct 40.3 (37.0-47.0) % Plt Count 310 (160-400) X10*3/uL Microbiology Microbiology Results: Microbiology 06/01/22 19:01 Blood - Venous Blood Culture - Preliminary No growth after 48 hours. 06/01/22 18:23 Blood - Venous Blood Culture - Preliminary No growth after 48 hours. Assessment and Plan (1) Cellulitis: Status: Acute this is probably staph or strep She is responding to Kefzol (2) Lymphedema: Status: Acute Plan Po Duricef or Keflex one week outpatient. Lymphedema clinic ?Karen
== END 2022-06-04 17:06 | disposition home health service (06) | DRG 603 ==
LOC: HO.ED 20:03 → HO.EDOVER 20:20 → HO.S3 06-03 17:53 → HO.EDOVER 06-19 08:49 → HO.S3 06-19 08:49
PROVIDERS: Admitting Provider Internal Medicine; Emergency Provider Student in an Organized Health Care Education/Training Program; PCP Internal Medicine; Visit Provider Family Medicine
DX: L03.116 Cellulitis of left lower limb (principal); I48.11 Longstanding persistent atrial fibrillation; F39 Unspecified mood [affective] disorder; G35 Multiple sclerosis; M79.81 Nontraumatic hematoma of soft tissue; I89.0 Lymphedema, not elsewhere classified; I10 Essential (primary) hypertension; Z20.822 Contact with and (suspected) exposure to COVID-19; Z87.891 Personal history of nicotine dependence; Z88.5 Allergy status to narcotic agent; Z88.8 Allergy status to other drugs, medicaments and biological substances; Z79.899 Other long term (current) drug therapy
CPT/HCPCS: 36415; 72193; 80048; 80162; 83605; 85025; 85027; 86140; 87040; 87635; 93005; 93306; 93970; 96374; 96375; 97162; 99218; 99285; J0690; J2543; Q9957; Q9967

== ENCOUNTER → 2022-06-18 11:33 | Outpatient (BNVA) | payer MEDICARE, MEDICAID, SELFPAY | PROVIDERS: PCP Internal Medicine; Visit Provider Surgery Vascular Surgery | DX: I83.12 Varicose veins of left lower extremity with inflammation (principal); I89.0 Lymphedema, not elsewhere classified; E66.01 Morbid (severe) obesity due to excess calories; Z68.42 Body mass index [BMI] 45.0-49.9, adult | CPT/HCPCS: 99202 ==

== ENCOUNTER 2022-06-25 13:56 | Outpatient (RCR) | payer MEDICARE, MEDICAID, SELFPAY | END 2022-06-26 14:14 | disposition home or self-care (01) | LOC: HO.WCC 13:56 | PROVIDERS: PCP Internal Medicine; Visit Provider Physician Assistant | DX: Z09 Encounter for follow-up examination after completed treatment for conditions other than malignant neoplasm (principal); Q82.0 Hereditary lymphedema; I10 Essential (primary) hypertension; I48.91 Unspecified atrial fibrillation; I73.9 Peripheral vascular disease, unspecified; Z87.891 Personal history of nicotine dependence | CPT/HCPCS: 99213 ==

== ENCOUNTER 2022-07-31 12:45 | Outpatient (REF) | payer MEDICARE, MEDICAID, SELFPAY ==
--- NOTE | ~2022-07-31 | US_ITS ---
EXAMINATION: US LOWER EXTREMITY VENOUS (REFLUX EXAM), BILATERAL CLINICAL INDICATION: Chronic venous insufficiency with lower extremity varicose veins and edema. History of prior left great saphenous vein stripping COMPARISON: 07/19/2019 TECHNIQUE: Color flow triplex imaging and compression Doppler was performed to evaluate both the deep and the superficial systems bilaterally. To evaluate the superficial system, the examination was performed in the upright position. Color-flow Doppler ultrasound and compression ultrasound were utilized. In addition, maneuvers were utilized to demonstrate reflux. FINDINGS: 1. DEEP VENOUS ULTRASOUND OF THE RIGHT LOWER EXTREMITY: Common Femoral Vein: Compressible, normal respiratory variation and augmented flow. Femoral Vein: Compressible, normal color flow and augmentation. Popliteal Vein: Compressible, normal augmentation. Deep Reflux: There is no evidence of reflux in the deep system in either the common femoral vein or the popliteal vein. There is no evidence of a Walsh's cyst. 2. SUPERFICIAL ULTRASOUND WITH DOPPLER OF RIGHT LOWER EXTREMITY: GREAT SAPHENOUS VEIN: Saphenofemoral Junction: 0.8 cm; Reflux: 0 ms Proximal Thigh: 0.6 cm; Reflux: 0 ms Mid Thigh: 0.6 cm; Reflux: 0 ms Above Knee: 0.6 cm; Reflux: 0 ms At Knee: 0.5 cm; Reflux: 0 ms Below Knee: Not visualized Mid Calf: 0.2 cm; Reflux: 3196 ms Ankle: 0.2 cm; Reflux: 0 ms DUPLICATED MEDIAL GREAT SAPHENOUS VEIN: Diameter: None Imaged Reflux: NA DUPLICATED LATERAL GREAT SAPHENOUS VEIN: Diameter: 0.4 cm Reflux: None SMALL SAPHENOUS VEIN: Proximal: 0.4 cm; Reflux: 0 ms Distal: 0.2 cm; Reflux: 0 ms VEIN OF GIACOMINI: None Imaged. PERFORATORS: Location: Proximal thigh Size: 0.3 cm Reflux: None VARICOSITIES: Location: Distal thigh and proximal calf Size: 0.5 to 0.7 cm Reflux: 1368 ms 3. DEEP VENOUS ULTRASOUND OF THE LEFT LOWER EXTREMITY: Common Femoral Vein: Compressible, normal respiratory variation and augmented flow. Femoral Vein: Compressible, normal color flow and augmentation. Popliteal Vein: Compressible, normal augmentation. Deep Reflux: There is no evidence of reflux in the deep system in either the common femoral vein or the popliteal vein. There is no evidence of a Walsh's cyst. 4. SUPERFICIAL ULTRASOUND WITH DOPPLER OF LEFT LOWER EXTREMITY: GREAT SAPHENOUS VEIN: Saphenofemoral Junction: 0.5 cm; Reflux: 0 ms Thigh and calf: Not visualized DUPLICATED MEDIAL GREAT SAPHENOUS VEIN: Diameter: None Imaged Reflux: NA DUPLICATED LATERAL GREAT SAPHENOUS VEIN: Diameter: None Imaged Reflux: NA SMALL SAPHENOUS VEIN: Proximal: 0.2 cm; Reflux: 0 ms Distal: Not visualized VEIN OF GIACOMINI: None Imaged. PERFORATORS: Location: Distal thigh and midcalf Size: 0.3 to 0.4 cm Reflux: 972 ms VARICOSITIES: Location: None significant Size: NA Reflux: NA US/US venous duplex LE BI IMPRESSION: Right: Focal reflux is seen in the mid calf in the great saphenous vein. There are large varicosities in the distal thigh and proximal calf with severe reflux as described above Left: Status post stripping of the left great saphenous vein. [employer] veins in the distal thigh and the calf extending into small varicosities
== END 2022-07-31 12:46 | disposition home or self-care (01) ==
LOC: HO.US 12:45
PROVIDERS: Visit Provider Surgery Vascular Surgery
DX: I83.12 Varicose veins of left lower extremity with inflammation (principal)
CPT/HCPCS: 93970

== ENCOUNTER → 2022-08-02 09:41 | Outpatient (REF) | payer MEDICARE, MEDICAID, SELFPAY ==
--- NOTE | ~2022-08-02 | NM_ITS ---
Lexiscan Myocardial perfusion study Indication: Atrial fibrillation, assess for coronary disease and ischemia Technique: The patient was brought in for a Lexiscan perfusion study on 08/02/2022 and was injected 0.4 mg of Lexiscan intravenously. Within a minute of this injection 45 mCi of sestamibi was given intravenously. Images were obtained using the SPECT gamma camera interlaced with the gating device. Images were obtained in supine position. Resting perfusion study was performed on 08/03/2022. Patient was administered 45 mCi of sestamibi intravenously at rest. Images were then obtained in supine position. Images were processed with the software and compared side to side in short axis, horizontal long axis and vertical long axis views. Total DLP 119mGy-cm. Findings: Raw acquisition reviewed. The stress perfusion study showed no significant perfusion abnormality. Both uncorrected as well as CT attenuation corrected images were reviewed. The gated study shows normal LV systolic function with calculated LVEF of 64%. LV cavity is normal in size. The gated study shows normal wall thickening and contraction of segments. Resting study shows no significant perfusion defects. Gating at rest reveals normal wall motion with ejection fraction at 72%. The findings are consistent with no clear reversible or fixed perfusion defects. NM/NM livia perf SPECT rest & str Impression: 1. Myocardial perfusion imaging study shows normal myocardial perfusion. 2. Gated LVEF is 64% during stress and 72% during rest. 3. Transient ischemic dilatation not present. EKG component of the test reported separately.
--- NOTE | 2022-08-02 09:52 | CA_ITS ---
Acquisition Time: 2022-08-02 10:02:45 Total Exercise Time: 00:02:00 Test Indications: AFIB Medications: Protocol: LEXISCAN Max HR: 079 BPM 50% of Pred: 155 BPM Max BP: 128/080 mmHG Max Work Load: 1.0 METS Pharmacological stress test with Lexiscan injection, while sitting and moving left arm, without anginal symptoms, without arrythmia, with normotensive response to injection, with nondiagnotic EKG for ischemia. Nuclear images pending. Test reviewed with Dr Swanson. Referred By: Rudy Swanson Overread By: CHANO RIOS
== END ==
LOC: HO.CARD 09:41
PROVIDERS: PCP Internal Medicine; Visit Provider Internal Medicine
DX: I20.9 Angina pectoris, unspecified (principal)
CPT/HCPCS: 78452; 93017; A9500; J2785

== ENCOUNTER → 2022-08-13 11:54 | Outpatient (BNVA) | payer MEDICARE, MEDICAID, SELFPAY | PROVIDERS: PCP Internal Medicine; Referring Provider Internal Medicine; Visit Provider Internal Medicine | DX: I48.19 Other persistent atrial fibrillation (principal) | CPT/HCPCS: 99212 ==

== ENCOUNTER → 2022-08-22 11:04 | Outpatient (REF) | payer MEDICARE, MEDICAID, SELFPAY ==
--- NOTE | 2022-08-22 11:06 | HM_ITS ---
Conclusion: 1. Patient was monitored for total period of 2 days and 23 hours 2. Significant baseline artifact noted on some of the strips 3. On the other portions of the strip underlying rhythm appears to be atrial fibrillation with average heart of 73 beats per minute with adequate rate control 4. No significant other arrhythmias noted 5. No significant pauses noted 6. No patient reported symptoms MTDD
== END ==
LOC: HO.CARD 11:04
PROVIDERS: Visit Provider Internal Medicine
DX: Z13.89 Encounter for screening for other disorder (principal)
CPT/HCPCS: 93242

== ENCOUNTER 2022-08-22 11:23 | Emergency (ER) | payer MEDICARE, MEDICAID, SELFPAY ==
[2022-08-22 11:28] VITALS: BP 142/61; PULSE 73; RESP 16; TEMP 36.4; O2SAT 98; BMI 51.3
--- NOTE | 2022-08-22 12:03 | ED.GENADULT ---
HPI - General Adult General Chief complaint: Skin/Abscess/Foreign Body Stated complaint: lymphedema in L leg Time Seen by Provider: 08/22/22 11:45 Source: patient Mode of arrival: ambulatory Limitations: no limitations History of Present Illness HPI narrative: 67 year old female with past medical history of AFib, cellulitis, and lymphedema for several years presents to the emergency department today with complaints of infection in left lower leg needing antibiotics per the [facility]. Patient states her left lower leg began weeping clear/purulence fluid on Saturday. She is followed by a [facility] lymphedema nurse who saw her today recommending that she present to the emergency department for antibiotic treatment as left lower leg looks infectious. Patient attempted to contact her primary care provider who did not return phone call so she came to the emergency department for treatment instead. Patient denies any discomfort with changes in ambulation. Pt denies any recent illness, sick contacts, paresthesias, weakness, fever, chills, nausea, vomiting, diarrhea, constipation, headache, or vision changes. Onset (ago): day(s) Location: left and lower extremity Radiation: non-radiation Related Data Home Medications Medication Instructions Recorded Confirmed acetaminophen 325 mg tablet 325 mg PO QID PRN Pain 06/01/22 08/13/22 ammonium lactate 12 % lotion 1 applic topical DAILY 06/01/22 08/13/22 tacrolimus 0.03 % topical ointment 1 applic topical BID 06/01/22 08/13/22 tramadol 50 mg tablet 1 tab PO BID PRN Pain 06/01/22 08/13/22 amlodipine 5 mg tablet 5 mg PO DAILY 08/13/22 08/13/22 atenolol 50 mg tablet 50 mg PO DAILY 08/13/22 08/13/22 citalopram 20 mg tablet 20 mg PO DAILY 08/13/22 08/13/22 digoxin 125 mcg (0.125 mg) tablet 0.125 mg PO .qod 08/13/22 08/13/22 famotidine 20 mg tablet 20 mg PO DAILY 08/13/22 08/13/22 gabapentin 300 mg capsule 300 mg PO DAILY 08/13/22 08/13/22 hydrochlorothiazide 25 mg tablet 25 mg PO DAILY 08/13/22 08/13/22 oxybutynin chloride 5 mg tablet 5 mg PO BID 08/13/22 08/13/22 Previous Rx's Medication Instructions Recorded apixaban 5 mg tablet (Eliquis) 5 mg PO BID #60 tabs 06/04/22 cephalexin 500 mg capsule 500 mg PO QID 7 days #28 caps 08/22/22 Allergies Allergy/AdvReac Type Severity Reaction Status Date / Time codeine [Codeine] Allergy Mild ITCH Verified 08/13/22 13:26 lisinopril [Lisinopril] Allergy Unknown VOMITING Verified 08/13/22 13:26 Review of Systems Review of Systems: In addition to documented HPI above, the additional ROS was obtained: CONSTITUTIONAL: Denies fever, chills, weakness, fatigue, headache, night sweats, or weight loss EYES: Denies vision changes, eye pain, swelling, redness, foreign body, discharge ENT: Hearing normal. Denies sore throat, swallowing difficulty, throat tightness, hoarse voice, congestion, or ear pain CV: Denies chest pain or epigastric pain. No edema, palpitations, or dyspnea on exertion RESP: Denies shortness of breath. Denies cough, wheezing, dyspnea. Denies smoke exposure GI: Denies abdominal pain. Denies nausea, vomiting, constipation or diarrhea. No hematemesis, melena, or hematochezia. : Denies irregular bleeding or vaginal discharge. Denies dysuria, urinary frequency, urinary incontinence/retention, urgency. Denies flank pain or hematuria MSK: Denies recent trauma, change in gait, myalgias, joint swelling or pain SKIN: Reports chronic bilateral lower extremity lymphadema. NEURO: Denies new numbness, tingling, dizziness, paresthesias or weakness. No loss of consciousness. Denies headache ENDOCRINE: Denies unexpected weight loss. Denies polyuria, polydipsia. No temperature intolerance HEME/ONC: Denies bleeding disorders, easy bruising, or lymphadenopathy PSYCH: Denies anxiety/panic, depression, SI/HI, or social issues. Yes all other systems are reviewed and are negative [facility] Past Medical History Attestation statement: The following information was validated with the patient. Source: old records reviewed Medical History Afib Atrial fibrillation Chronic acquired lymphedema Hypertension Multiple sclerosis Persistent atrial fibrillation Seroma Surgical History No pertinent past surgical history Family History Family History Father No problems noted. Mother No problems noted. Other No family history of coronary artery disease Social History Social History Household Members: None Housing: Assisted Living Facility Do you presently have visiting nurse or other home services: Yes Patient Tobacco Use Status: Former Tobacco user Smoked in Last 30 Days: No Use of substances other than those prescribed or required for medical reasons: No Advance Directives: No service: No Current occupational status: retired Physical Exam ED Vital Signs: Vital Signs - 24 hr 08/22/22 11:28 08/22/22 12:41 Temperature 97.6 F 98.9 F Pulse Rate 73 71 Respiratory Rate 16 Blood Pressure 142/61 H 129/60 Pulse Oximetry 98 99 Oxygen Delivery Method Room Air Room Air BMI result Body Mass Index 51.3 Nursing notes and vital signs reviewed. GENERAL APPEARANCE: A&0 x 4, generally well appearing, no acute distress HENMT: Normal to inspection, atraumatic, face symmetrical. Normal external ears, nose, and oropharynx clear. EYE: PERRLA, EOM intact, structures appear normal NECK: Supple without lymphadenopathy. No stiffness or restricted ROM. CHEST: Normal to inspection HEART: Normal rate and regular rhythm, normal S1/S2, no M/R/G LUNGS: LS CTA, moving air well. Able to speak in complete sentences. No crackles, wheezes, or rhonchi auscultated ABDOMEN: Soft, nontender, nondistended. Normal bowel sounds noted BACK: No CVAT, no obvious deformity EXTREMITIES: Moving all extremities without difficulty. No cyanosis, clubbing, or edema. Normal capillary refill. NEUROLOGICAL: Alert and oriented, moving all 4 extremities with equal strength. CN not formally tested but appearing grossly intact. Observed to ambulate with normal gait. Cognition normal SKIN: LLE lymphedematous with mild erythema. Draining clear yellow/white fluid. RLE lymphedematous without erythema or warmth PSYCH: Cooperative, normal affect, normal thought process Medications Administered Discontinued Medications Generic Name Dose Route Start Last Admin Trade Name Freq PRN Reason Stop Dose Admin Ceftriaxone Sodium 1 gm/ 50 mls @ 100 mls/hr 08/22/22 12:09 08/22/22 12:53 Sodium Chloride IV 08/22/22 12:38 Infused ONCE ONE Infusion Medical Decision Making Medical Decision Making MDM Narrative: 67 year old female with past medical history of AFib, cellulitis, and lymphedema presents to the emergency department today with complaints of infection in left lower leg needing antibiotics per the [facility]. Blood work essentially unremarkable. History and physical exam consistent with LLE cellulitus. As pt has not yet been treated for this infection, 1 gm IV Ceftriaxone given in the ED with plan to continue Keflex outpatient and follow up with her PCP. Pt and family in agreement with plan. Patient is safe for discharge at this time. HPI, PE, diagnostics, and plan discussed with patient and family with no unanswered questions at this time. Patient educated to return to the emergency department with new, worsening, or concerning emergent symptoms. Recommended to follow-up with there primary care provider for further treatment and management. *Refer to Course for additional information on consultations, diagnostic interpretation, consultations, emergency department stay, conversations with patient and family, shared decision making with patient, and more information on medical decision making* Lab Data 08/22/22 12:15 08/22/22 12:15 Labs: Lab Results 08/22/22 08/22/22 08/22/22 Range/Units 12:15 12:15 12:15 WBC 10.0 (4.8-10.8) X10*3/uL RBC 4.41 (4.20-5.50) X10*6/uL Hgb 13.6 (12.0-16.0) g/dl Hct 41.6 (37.0-47.0) % MCV 94.3 (80.0-98.0) fL MCH 30.8 (27.0-33.0) pg MCHC 32.7 (31.0-35.0) g/dl RDW 13.3 (11.0-16.0) % Plt Count 360 (160-400) X10*3/uL MPV 10.6 (9.4-12.3) fL Immature Gran % (Auto) 0.4 (0.0-0.4) % Neut % (Auto) 74.6 H (45-73) % Lymph % (Auto) 11.4 L (20-40) % [place] % (Auto) 10.3 (2-11) % Eos % (Auto) 2.1 (0-4) % Baso % (Auto) 1.2 (0-2) % Lymph # (Auto) 1.1 L (1.2-4.9) X10*3/uL [place] # (Auto) 1.0 (0.1-1.2) X10*3/uL Eos # (Auto) 0.2 (0.0-0.4) X10*3/uL Baso # (Auto) 0.1 (0.0-0.2) X10*3/uL Abs Immat Gran (auto) 0.04 H (0.00-0.03) X10*3/uL Absolute Neuts (auto) 7.5 (2.0-8.3) x10*3/uL Absolute Nucleated RBC 0.000 (0.0-0.012) X10*3/uL Nucleated RBC % (auto) 0.0 (0.0-0.2) /100WBC Sodium 139 (135-145) mmol/L Potassium 4.0 (3.3-5.1) mmol/L Chloride 100 (96-108) mmol/L Carbon Dioxide 30 H (22-29) mmol/L Anion Gap 13 (12-20) BUN 10 (9-16) mg/dL Creatinine 0.70 (0.5-1.4) mg/dL Estim Creat Clear Calc 106.3 Estimated GFR > 60 Random Glucose 89 (60-115) mg/dL Calcium 9.5 D (8.4-10.2) mg/dL Total Bilirubin 0.7 (0.0-1.0) mg/dL AST 24 (5-31) U/L ALT 18 (0-31) U/L Alkaline Phosphatase 74 (39-117) U/L Troponin I High Sens < 3.5 (<3.5-17.0) ng/L C-Reactive Protein 3.72 H (< or = 0.50) mg/dL B-Natriuretic Peptide (<100) pg/mL Total Protein 6.9 (6.5-8.0) g/dL Albumin 3.9 (3.5-5.0) g/dL 08/22/22 Range/Units 12:15 WBC (4.8-10.8) X10*3/uL RBC (4.20-5.50) X10*6/uL Hgb (12.0-16.0) g/dl Hct (37.0-47.0) % MCV (80.0-98.0) fL MCH (27.0-33.0) pg MCHC (31.0-35.0) g/dl RDW (11.0-16.0) % Plt Count (160-400) X10*3/uL MPV (9.4-12.3) fL Immature Gran % (Auto) (0.0-0.4) % Neut % (Auto) (45-73) % Lymph % (Auto) (20-40) % [place] % (Auto) (2-11) % Eos % (Auto) (0-4) % Baso % (Auto) (0-2) % Lymph # (Auto) (1.2-4.9) X10*3/uL [place] # (Auto) (0.1-1.2) X10*3/uL Eos # (Auto) (0.0-0.4) X10*3/uL Baso # (Auto) (0.0-0.2) X10*3/uL Abs Immat Gran (auto) (0.00-0.03) X10*3/uL Absolute Neuts (auto) (2.0-8.3) x10*3/uL Absolute Nucleated RBC (0.0-0.012) X10*3/uL Nucleated RBC % (auto) (0.0-0.2) /100WBC Sodium (135-145) mmol/L Potassium (3.3-5.1) mmol/L Chloride (96-108) mmol/L Carbon Dioxide (22-29) mmol/L Anion Gap (12-20) BUN (9-16) mg/dL Creatinine (0.5-1.4) mg/dL Estim Creat Clear Calc Estimated GFR Random Glucose (60-115) mg/dL Calcium (8.4-10.2) mg/dL Total Bilirubin (0.0-1.0) mg/dL AST (5-31) U/L ALT (0-31) U/L Alkaline Phosphatase (39-117) U/L Troponin I High Sens (<3.5-17.0) ng/L C-Reactive Protein (< or = 0.50) mg/dL B-Natriuretic Peptide 146 H (<100) pg/mL Total Protein (6.5-8.0) g/dL Albumin (3.5-5.0) g/dL Discharge Plan Discharge Clinical Impression: Cellulitis, Lymphedema Patient Disposition: Home, Self-Care Instructions: Cellulitis (ED), Lymphedema (ED) Additional Instructions: Antibiotics have been prescribed to your preferred pharmacy. Please take full prescription as directed. Please follow up with your primary care provider. Please return to the emergency department with new, worsening, concerning emergent symptoms. Prescriptions: New cephalexin 500 mg capsule 500 mg PO QID 7 Days Qty: 28 0RF No Action ammonium lactate 12 % lotion 1 applic topical DAILY tramadol 50 mg tablet 1 tab PO BID PRN (Reason: Pain) tacrolimus 0.03 % ointment 1 applic topical BID acetaminophen 325 mg Tablet 325 mg PO QID PRN (Reason: Pain) Eliquis 5 mg Tablet 5 mg PO BID Qty: 60 0RF amlodipine 5 mg tablet 5 mg PO DAILY atenolol 50 mg tablet 50 mg PO DAILY citalopram 20 mg tablet 20 mg PO DAILY famotidine 20 mg tablet 20 mg PO DAILY gabapentin 300 mg capsule 300 mg PO DAILY hydrochlorothiazide 25 mg tablet 25 mg PO DAILY oxybutynin chloride 5 mg tablet 5 mg PO BID digoxin 125 mcg (0.125 mg) tablet 0.125 mg PO .qod Referrals: Harshal Thompson MD [Primary Care Provider] - Print Language: Tajik
[2022-08-22 12:19] LABS: MANUAL DIFF FLAG NO
[2022-08-22 12:21] LABS: Basophils Absolute Auto 0.1 X10*3/uL (0.0-0.2); Basophils Percent Auto 1.2 % (0-2); Eosinophils Absolute Auto 0.2 X10*3/uL (0.0-0.4); Eosinophils Percent Auto 2.1 % (0-4); Hematocrit 41.6 % (37.0-47.0); Hemoglobin 13.6 g/dl (12.0-16.0); Imm Gran Abs Auto 0.04 X10*3/uL (0.00-0.03); Imm Gran Pct Auto 0.4 % (0.0-0.4); Lymphocytes Absolute Auto 1.1 X10*3/uL (1.2-4.9); Lymphocytes Percent Auto 11.4 % (20-40); Mean Corpuscular HGB Conc 32.7 g/dl (31.0-35.0); Mean Corpuscular Hemoglobin 30.8 pg (27.0-33.0); Mean Corpuscular Volume 94.3 fL (80.0-98.0); Mean Platelet Volume 10.6 fL (9.4-12.3); Monocytes Percent Auto 10.3 % (2-11); Neutrophils Absolute Auto 7.5 x10*3/uL (2.0-8.3); Neutrophils Percent Auto 74.6 % (45-73); Platelet Count 360 X10*3/uL (160-400); Red Blood Count 4.41 X10*6/uL (4.20-5.50); Red Cell Distribution Width 13.3 % (11.0-16.0)
[2022-08-22] MEDS: cefTRIAXone sodium 1 GM in 0.9 % Sodium Chloride 50 ML IV (12:23)
[2022-08-22 12:41] VITALS: BP 129/60; PULSE 71; TEMP 37.2; O2SAT 99
[2022-08-22 12:43] LABS: Alanine Aminotransferase 18 U/L (0-31); Albumin Level 3.9 g/dL (3.5-5.0); Alkaline Phosphatase 74 U/L (39-117); Anion Gap 13 (12-20); Aspartate Amino Transferase 24 U/L (5-31); Bilirubin Total 0.7 mg/dL (0.0-1.0); Blood Urea Nitrogen 10 mg/dL (9-16); C Reactive Protein 3.72 mg/dL (< or = 0.50); Calcium 9.5 mg/dL (8.4-10.2); Carbon Dioxide 30 mmol/L (22-29); Chloride 100 mmol/L (96-108); Creatinine Clr Calc Pharmacy 106.3; Estimated Glomerular Filt Rate > 60; Glucose Random 89 mg/dL (60-115); Sodium 139 mmol/L (135-145); Total Protein 6.9 g/dL (6.5-8.0)
[2022-08-22 12:44] LABS: Troponin-I High Sensitivity < 3.5 ng/L (<3.5-17.0)
[2022-08-22 12:49] LABS: B Type Natriuretic Peptide 146 pg/mL (<100)
[2022-08-22 14:21] LABS: Erythrocyte Sedimentation Rate 28 MM/HR (0-20)
== END 2022-08-22 13:59 | disposition home or self-care (01) ==
PROVIDERS: Nurse Practitioner Family; Emergency Provider Emergency Medicine; PCP Internal Medicine
DX: L03.116 Cellulitis of left lower limb (principal); I89.0 Lymphedema, not elsewhere classified; G35 Multiple sclerosis; I48.19 Other persistent atrial fibrillation; Z87.891 Personal history of nicotine dependence; Z79.899 Other long term (current) drug therapy
CPT/HCPCS: 36415; 80053; 83880; 84484; 85025; 85652; 86140; 93242; 96365; 99284; J0696

== ENCOUNTER 2022-12-05 13:58 | Outpatient (RCR) | payer MEDICAID, MEDICARE, SELFPAY | END 2023-01-10 15:02 | disposition home or self-care (01) | LOC: HO.WCC 13:58 | PROVIDERS: PCP Internal Medicine; Visit Provider Surgery | DX: L97.822 Non-pressure chronic ulcer of other part of left lower leg with fat layer exposed (principal); Q82.0 Hereditary lymphedema | CPT/HCPCS: 29581; 97597; 97598; 99212; 99213 ==

== ENCOUNTER → 2022-12-10 11:38 | Outpatient (BNVA) | payer MEDICAID, SELFPAY | PROVIDERS: PCP Internal Medicine; Visit Provider Surgery Vascular Surgery | DX: I83.12 Varicose veins of left lower extremity with inflammation (principal); I89.0 Lymphedema, not elsewhere classified | CPT/HCPCS: 99212 ==

== ENCOUNTER 2023-02-19 12:33 | Outpatient (REF) | payer MEDICARE, MEDICAID, SELFPAY ==
[2023-02-19 13:19] LABS: MANUAL DIFF FLAG NO
[2023-02-19 13:26] LABS: Basophils Absolute Auto 0.1 X10*3/uL (0.0-0.2); Basophils Percent Auto 1.5 % (0-2); Eosinophils Absolute Auto 0.4 X10*3/uL (0.0-0.4); Eosinophils Percent Auto 4.4 % (0-4); Hematocrit 44.3 % (37.0-47.0); Hemoglobin 13.8 g/dl (12.0-16.0); Imm Gran Abs Auto 0.03 X10*3/uL (0.00-0.03); Imm Gran Pct Auto 0.4 % (0.0-0.4); Lymphocytes Absolute Auto 1.5 X10*3/uL (1.2-4.9); Lymphocytes Percent Auto 17.9 % (20-40); Mean Corpuscular HGB Conc 31.2 g/dl (31.0-35.0); Mean Corpuscular Hemoglobin 29.8 pg (27.0-33.0); Mean Corpuscular Volume 95.7 fL (80.0-98.0); Mean Platelet Volume 10.9 fL (9.4-12.3); Monocytes Absolute Auto 0.8 X10*3/uL (0.1-1.2); Monocytes Percent Auto 9.5 % (2-11); Neutrophils Absolute Auto 5.7 x10*3/uL (2.0-8.3); Neutrophils Percent Auto 66.3 % (45-73); Platelet Count 383 X10*3/uL (160-400); Red Blood Count 4.63 X10*6/uL (4.20-5.50); Red Cell Distribution Width 14.7 % (11.0-16.0); White Blood Count 8.6 X10*3/uL (4.8-10.8)
[2023-02-19 14:08] LABS: Alanine Aminotransferase 14 U/L (0-31); Albumin Level 4.1 g/dL (3.5-5.0); Alkaline Phosphatase 69 U/L (39-117); Anion Gap 10 (12-20); Aspartate Amino Transferase 14 U/L (5-31); Bilirubin Total 0.5 mg/dL (0.0-1.0); Blood Urea Nitrogen 12 mg/dL (9-16); Carbon Dioxide 33 mmol/L (22-29); Chloride 104 mmol/L (96-108); Estimated Glomerular Filt Rate > 60; Glucose Random 102 mg/dL (60-115); Potassium 4.3 mmol/L (3.3-5.1); Sodium 143 mmol/L (135-145)
[2023-02-19 14:17] LABS: Thyroid Stimulating Hormone 1.69 uIU/mL (0.32-4.0)
== END 2023-02-19 12:34 | disposition home or self-care (01) ==
LOC: HO.10HDL 12:33
PROVIDERS: Visit Provider Internal Medicine
DX: I48.0 Paroxysmal atrial fibrillation (principal); I10 Essential (primary) hypertension; K21.9 Gastro-esophageal reflux disease without esophagitis
CPT/HCPCS: 36415; 80053; 84443; 85025

== ENCOUNTER 2023-05-20 15:56 | Outpatient (REF) | payer MEDICARE, MEDICAID, SELFPAY ==
[2023-05-20 16:07] LABS: MANUAL DIFF FLAG NO
[2023-05-20 16:57] LABS: Basophils Absolute Auto 0.2 X10*3/uL (0.0-0.2); Basophils Percent Auto 1.5 % (0-2); Eosinophils Absolute Auto 0.2 X10*3/uL (0.0-0.4); Eosinophils Percent Auto 1.7 % (0-4); Hematocrit 42.5 % (37.0-47.0); Hemoglobin 13.8 g/dl (12.0-16.0); Imm Gran Abs Auto 0.05 X10*3/uL (0.00-0.03); Imm Gran Pct Auto 0.4 % (0.0-0.4); Lymphocytes Absolute Auto 1.5 X10*3/uL (1.2-4.9); Lymphocytes Percent Auto 12.9 % (20-40); Mean Corpuscular HGB Conc 32.5 g/dl (31.0-35.0); Mean Corpuscular Hemoglobin 30.5 pg (27.0-33.0); Mean Platelet Volume 11.3 fL (9.4-12.3); Monocytes Percent Auto 8.8 % (2-11); Neutrophils Absolute Auto 8.6 x10*3/uL (2.0-8.3); Neutrophils Percent Auto 74.7 % (45-73); Platelet Count 426 X10*3/uL (160-400); Red Blood Count 4.52 X10*6/uL (4.20-5.50); Red Cell Distribution Width 13.2 % (11.0-16.0); White Blood Count 11.5 X10*3/uL (4.8-10.8)
[2023-05-20 17:50] LABS: Alanine Aminotransferase 14 U/L (0-31); Alkaline Phosphatase 70 U/L (39-117); Anion Gap 15 (12-20); Aspartate Amino Transferase 15 U/L (5-31); Bilirubin Total 0.5 mg/dL (0.0-1.0); Blood Urea Nitrogen 6 mg/dL (9-16); Calcium 9.9 mg/dL (8.4-10.2); Carbon Dioxide 28 mmol/L (22-29); Chloride 103 mmol/L (96-108); Estimated Glomerular Filt Rate > 60; Glucose Random 89 mg/dL (60-115); Potassium 4.1 mmol/L (3.3-5.1); Sodium 142 mmol/L (135-145); Total Protein 7.6 g/dL (6.5-8.0)
== END 2023-05-20 15:57 | disposition home or self-care (01) ==
LOC: HO.LAB 15:56
PROVIDERS: PCP Internal Medicine; Visit Provider Internal Medicine
DX: I48.91 Unspecified atrial fibrillation (principal); I10 Essential (primary) hypertension; I89.0 Lymphedema, not elsewhere classified
CPT/HCPCS: 36415; 80053; 85025

== ENCOUNTER 2023-12-17 13:03 | Outpatient (RCR) | payer MEDICARE, MEDICAID, SELFPAY | END 2024-02-17 13:47 | disposition skilled nursing facility (03) | LOC: HO.WCC 13:03 | PROVIDERS: PCP Internal Medicine; Visit Provider Physician Assistant | DX: L97.821 Non-pressure chronic ulcer of other part of left lower leg limited to breakdown of skin (principal); L97.812 Non-pressure chronic ulcer of other part of right lower leg with fat layer exposed; I89.0 Lymphedema, not elsewhere classified; I10 Essential (primary) hypertension; I73.9 Peripheral vascular disease, unspecified; Z87.891 Personal history of nicotine dependence | CPT/HCPCS: 11042; 97597; 97598 ==

== ENCOUNTER 2024-05-26 13:16 | Inpatient (IN) | payer MEDICARE, MEDICAID, SELFPAY ==
--- NOTE | ~2024-05-26 | US_ITS ---
EXAMINATION: BILATERAL TRIPLEX SCANNING OF THE LOWER EXTREMITIES CLINICAL INFORMATION: Lower extremity swelling. COMPARISON: None. TECHNIQUE: Color-flow triplex imaging with spectral analysis and compression Doppler were performed on the lower extremities. FINDINGS: Respiratory variation, normal compression and augmented flow are noted throughout the lower extremities. The visualized common femoral vein, superficial femoral vein, profunda femoral vein, popliteal vein and mid calf peroneal and posterior tibial venous segments show no evidence of deep venous thrombosis. Visualization of the popliteal and calf veins is limited due to patient body habitus. There is no Walsh's cyst. US/US venous duplex LE BI IMPRESSION: Normal triplex scan without evidence of deep venous thrombosis involving the bilateral lower extremities. Exam limited by patient body habitus. Electronically signed by: Ariel Schwartz MD 05/26/2024 08:19 PM EDT
[2024-05-26 13:17] VITALS: BP 124/73; PULSE 100; RESP 18; TEMP 37; O2SAT 97; BMI 51.4
--- NOTE | 2024-05-26 13:19 | ED.GENADULT ---
HPI - General Adult General Chief complaint: Extremity Injury, Lower Stated complaint: Lymphodema Time Seen by Provider: 05/26/24 16:35 History of Present Illness ED Provider: Porter ROME narrative: The patient is a 69-year-old female with a history of chronic bilateral lower extremity lymphedema. She also has a history of atrial fibrillation and is on apixaban. The patient lives at an assisted living facility. During the last week the staff at the facility feels that the appearance of the patient's lower extremities seems much worse than it has previously. The legs seem more swollen and are more weepy. There has been no fever. No injury. Related Data Home Medications ?Medication ?Instructions ?Recorded ?Confirmed acetaminophen 325 mg tablet 975 mg PO TID PRN Pain 06/01/22 05/26/24 tramadol 50 mg tablet 1 tab PO Q6H PRN Pain 06/01/22 05/26/24 amlodipine 5 mg tablet 5 mg PO DAILY 08/13/22 05/26/24 citalopram 20 mg tablet 20 mg PO DAILY 08/13/22 05/26/24 digoxin 125 mcg (0.125 mg) tablet 0.125 mg PO DAILY 08/13/22 05/26/24 famotidine 20 mg tablet 20 mg PO DAILY 08/13/22 05/26/24 tacrolimus 0.1 % topical ointment 1 appl topical BID PRN Rash 12/10/22 05/26/24 aspirin 81 mg tablet,delayed 81 mg PO DAILY 05/26/24 05/26/24 release atenolol 25 mg tablet 25 mg PO DAILY 05/26/24 05/26/24 dextran 70-hypromellose eye drops 1 drp ophthalmic (eye) BID 05/26/24 05/26/24 in a dropperette (Artificial Tears (PF) drops in a dropperette) furosemide 40 mg tablet 40 mg PO DAILY 05/26/24 05/26/24 penicillin V potassium 500 mg 500 mg PO BID 05/26/24 05/26/24 tablet polyethylene glycol 3350 17 17 g PO DAILY 05/26/24 05/26/24 gram/dose oral powder (Miralax) sennosides 8.6 mg tablet (senna) 8.6 mg PO DAILY 05/26/24 05/26/24 Previous Rx's ?Medication ?Instructions ?Recorded apixaban 5 mg tablet (Eliquis) 5 mg PO BID #60 tabs 06/04/22 Allergies Allergy/AdvReac Type Severity Reaction Status Date / Time codeine [Codeine] Allergy Mild ITCH Verified 05/26/24 13:21 lisinopril [Lisinopril] Allergy Unknown VOMITING Verified 05/26/24 13:21 Review of Systems Review of Systems: Yes all other systems are reviewed and are negative [facility] Past Medical History Medical History Seroma Persistent atrial fibrillation Chronic acquired lymphedema Multiple sclerosis Afib Atrial fibrillation Hypertension Surgical History No pertinent past surgical history Family History Family History Father No problems noted. Mother No problems noted. Other No family history of coronary artery disease Social History Social History Household Members: Other Household Members Other:: patient has her own room in an assisted living facility Housing: Assisted Living Facility Do you presently have visiting nurse or other home services: No Patient Tobacco Use Status: Former Tobacco user Tobacco use type: Cigarette Cigarettes Per Day: 30 Years Smoked: 25 Second Hand Smoke Exposure: No service: No Current occupational status: retired Physical Exam ED Vital Signs: Vital Signs - 24 hr 05/26/24 13:17 05/26/24 15:44 05/26/24 17:06 Temperature 98.6 F 98.2 F 97.9 F Pulse Rate 100 86 94 Respiratory Rate 18 18 18 Blood Pressure 124/73 146/78 H 180/78 H Pulse Oximetry 97 100 100 Oxygen Delivery Method Room Air Room Air Room Air BMI result Body Mass Index 51.4 Const Other: The patient is a chronically ill-appearing 69-year-old who is awake and alert. She does not appear obviously acutely ill. HENMT Other: Face is symmetrical. Mucous membranes moist. Eyes General: appearance normal, both eyes and all related structures Neck Neck: Yes no JVD Resp Effort & Inspection: normal respiratory effort Auscultation: clear to auscultation bilaterally Cardio Other: The patient's heart rate is normal but there is an irregular rhythm. No definite murmur. GI Other: Abdomen is soft and nontender Skin Other: The patient has severe chronic lymphedema of both lower legs. On the left lower leg there is a lot of erythema. There are also areas of what seem to be chronic skin breakdown in folds of redundant skin. There is a foul odor Neuro Other: The patient is awake and alert. Cranial nerves are grossly intact. She moves her extremities symmetrically. Her legs are extremely bulky hinders her ability to use the legs but I believe she has intact neurological function in the legs. Extrem Other: The patient has signs of severe chronic lymphedema of both lower legs. Left leg shows a fair amount of erythema compared to the right. There are areas of chronic skin breakdown. Course Course Course Narrative: This is a Rapid Medical Exam performed in triage by Janneth Roy PA-C. Full HPI, ROS and PE to be performed by primary ED provider. 69-year-old female with a past medical history of AFib on Eliquis, chronic lymphedema, MS, HTN, presenting to the ED c/o worsening lymphedema with leaking. Sent from Assisted Living who reports LE are increasing in size, however patient denies. Patient does not care for her LE. denies SOB, CP. reports compliance with all meds PE: +severe bilateral LE lymphedema w/leakage/clear drainage. difficult to assess in triage Plan: labs Medications Administered Generic Name Dose Route Start Last Admin Trade Name Freq PRN Reason Stop Dose Admin Apixaban 5 mg 05/26/24 21:00 05/26/24 21:48 Apixaban 5 Mg Tablet PO 5 mg BID TONG Administration Artificial Tears 1 drop 05/26/24 21:00 05/26/24 22:20 Artificial Tears 15 Ml Drops EYE-BOTH Not Given BID TONG Atenolol 25 mg 05/26/24 20:45 05/26/24 21:48 Atenolol 25 Mg Tablet PO 25 mg DAILY TONG Administration Protocol Sodium Chloride 3 ml 05/27/24 00:00 05/27/24 01:32 0.9 % Sodium Chloride Flush 3 Ml Syringe IVFLUSH 3 ml QSHIFT TONG Administration Tramadol HCl 50 mg 05/26/24 20:44 05/26/24 21:52 Tramadol Hcl 50 Mg Tablet PO 50 mg Q6H PRN Administration Pain, Moderate(Pain Scale 4-6) Discontinued Medications Generic Name Dose Route Start Last Admin Trade Name Freq PRN Reason Stop Dose Admin Vancomycin HCl 2,000 mg in 500 mls @ 250 mls/hr 05/26/24 19:04 05/26/24 22:21 Vancomycin/Ns IV 05/26/24 21:03 Infused ONCE ONE Infusion Medical Decision Making Medical Decision Making [facility] Narrative: The patient is a 69-year-old woman who has a history of chronic bilateral lymphedema. She is on apixaban because of atrial fibrillation. She lives at an assisted living facility. Apparently she was sent to the emergency room today because the staff at the assisted living facility feel that the appearance of the legs over the last week has gotten significantly worse. The patient clearly has severe chronic lymphedema. The left lower leg has a lot of erythema. There are also areas of skin breakdown folds of redundant skin that are quite foul-smelling. Bilateral lower extremity ultrasound shows no DVT although the studies are limited because of the patient's body habitus. Out of concern for a possible cellulitis the patient will be started on vancomycin and admitted to the hospitalist service. Lab Data 05/26/24 13:52 05/26/24 13:52 Labs: Lab Results 05/26/24 05/26/24 Range/Units 13:52 18:11 WBC 11.1 H (4.8-10.8) X10*3/uL RBC 4.47 (4.20-5.50) X10*6/uL Hgb 12.2 (12.0-16.0) g/dl Hct 38.3 (37.0-47.0) % MCV 85.7 (80.0-98.0) fL MCH 27.3 (27.0-33.0) pg MCHC 31.9 (31.0-35.0) g/dl RDW 15.4 (11.0-16.0) % Plt Count 383 (160-400) X10*3/uL MPV 10.6 (9.4-12.3) fL Immature Gran % (Auto) 0.4 (0.0-0.4) % Neut % (Auto) 78.0 H (45-73) % Lymph % (Auto) 9.4 L (20-40) % [place] % (Auto) 9.5 (2-11) % Eos % (Auto) 1.8 (0-4) % Baso % (Auto) 0.9 (0-2) % Lymph # (Auto) 1.0 L (1.2-4.9) X10*3/uL [place] # (Auto) 1.1 (0.1-1.2) X10*3/uL Eos # (Auto) 0.2 (0.0-0.4) X10*3/uL Baso # (Auto) 0.1 (0.0-0.2) X10*3/uL Abs Immat Gran (auto) 0.05 H (0.00-0.03) X10*3/uL Absolute Neuts (auto) 8.7 H (2.0-8.3) x10*3/uL Absolute Nucleated RBC 0.000 (0.0-0.012) X10*3/uL Nucleated RBC % (auto) 0.0 (0.0-0.2) /100WBC PT 17.9 H (10.9-12.4) SEC INR 1.5 H (0.9-1.1) Sodium 140 (135-145) mmol/L Potassium 4.5 (3.3-5.1) mmol/L Chloride 101 (96-108) mmol/L Carbon Dioxide 27 (22-29) mmol/L Anion Gap 17 (12-20) BUN 13 (9-16) mg/dL Creatinine 0.75 (0.5-1.4) mg/dL Estim Creat Clear Calc 96.6 Estimated GFR > 60 Random Glucose 118 H (60-115) mg/dL Lactic Acid 1.0 (0.5-2.0) mmol/L Calcium 9.2 D (8.4-10.2) mg/dL Magnesium 2.0 (1.6-2.6) mg/dL Total Bilirubin 0.7 (0.0-1.0) mg/dL Direct Bilirubin 0.2 (0.0-0.5) mg/dL AST 21 (5-31) U/L ALT 10 (0-31) U/L Alkaline Phosphatase 69 (39-117) U/L C-Reactive Protein 8.47 H (< or = 0.50) mg/dL B-Natriuretic Peptide 95 (<100) pg/mL Total Protein 7.4 (6.5-8.0) g/dL Albumin 3.9 (3.5-5.0) g/dL Discharge Plan Discharge Clinical Impression: Lymphedema Cellulitis Qualifiers: Site of cellulitis: extremity Site of cellulitis of extremity: lower extremity Laterality: left Qualified Code(s): L03.116 - Cellulitis of left lower limb Patient Disposition: Admitted As Inpatient Interventions: Admission Worksheet (ED) Last Done: 05/27/24 00:28 Discharge Date/Time: 05/27/24 01:09
[2024-05-26 13:56] LABS: MANUAL DIFF FLAG NO
[2024-05-26 13:58] LABS: Basophils Absolute Auto 0.1 X10*3/uL (0.0-0.2); Basophils Percent Auto 0.9 % (0-2); Eosinophils Absolute Auto 0.2 X10*3/uL (0.0-0.4); Eosinophils Percent Auto 1.8 % (0-4); Hematocrit 38.3 % (37.0-47.0); Hemoglobin 12.2 g/dl (12.0-16.0); Imm Gran Abs Auto 0.05 X10*3/uL (0.00-0.03); Imm Gran Pct Auto 0.4 % (0.0-0.4); Lymphocytes Percent Auto 9.4 % (20-40); Mean Corpuscular HGB Conc 31.9 g/dl (31.0-35.0); Mean Corpuscular Hemoglobin 27.3 pg (27.0-33.0); Mean Corpuscular Volume 85.7 fL (80.0-98.0); Mean Platelet Volume 10.6 fL (9.4-12.3); Monocytes Absolute Auto 1.1 X10*3/uL (0.1-1.2); Monocytes Percent Auto 9.5 % (2-11); Neutrophils Absolute Auto 8.7 x10*3/uL (2.0-8.3); Platelet Count 383 X10*3/uL (160-400); Red Blood Count 4.47 X10*6/uL (4.20-5.50); Red Cell Distribution Width 15.4 % (11.0-16.0); White Blood Count 11.1 X10*3/uL (4.8-10.8)
[2024-05-26 14:12] LABS: INTERNATIONAL NORM RATIO 1.5 (0.9-1.1); Prothrombin Time 17.9 SEC (10.9-12.4)
[2024-05-26 14:13] LABS: Alanine Aminotransferase 10 U/L (0-31); Albumin Level 3.9 g/dL (3.5-5.0); Alkaline Phosphatase 69 U/L (39-117); Anion Gap 17 (12-20); Aspartate Amino Transferase 21 U/L (5-31); Bilirubin Direct 0.2 mg/dL (0.0-0.5); Bilirubin Total 0.7 mg/dL (0.0-1.0); Blood Urea Nitrogen 13 mg/dL (9-16); Calcium 9.2 mg/dL (8.4-10.2); Carbon Dioxide 27 mmol/L (22-29); Chloride 101 mmol/L (96-108); Creatinine Clr Calc Pharmacy 96.6; Estimated Glomerular Filt Rate > 60; Glucose Random 118 mg/dL (60-115); Potassium 4.5 mmol/L (3.3-5.1); Sodium 140 mmol/L (135-145); Total Protein 7.4 g/dL (6.5-8.0)
[2024-05-26 14:18] LABS: B Type Natriuretic Peptide 95 pg/mL (<100)
[2024-05-26 15:44] VITALS: BP 146/78; PULSE 86; RESP 18; TEMP 36.8; O2SAT 100
--- NOTE | 2024-05-26 15:50 | PC.NURSE ---
Addendum entered by Jud Ferguson RN 05/26/24 18:37: bilateral lower extremity 4+ weeping edema, red in color. Original Note: patient a&ox3, rr equal/non labored, lungs diminished, ekg previously performed-chronic afib, labs previously drawn, pt awaiting provider evaluation, will continue to monitor.
--- NOTE | 2024-05-26 16:54 | ECG_ITS ---
Test Reason : LYMPHODEMA Blood Pressure : / mmHG Vent. Rate : 087 BPM Atrial Rate : 000 BPM P-R Int : 000 ms QRS Dur : 086 ms QT Int : 402 ms P-R-T Axes : 000 051 016 degrees QTc Int : 483 ms Atrial fibrillation Abnormal ECG When compared with ECG of 01-JUN-2022 19:52, Nonspecific T wave abnormality no longer evident in Anterior leads Referred By: Nick Buenrostro Electronically Signed By:SOFIYA PETERSON
[2024-05-26 17:06] VITALS: BP 180/78; PULSE 94; RESP 18; TEMP 36.6; O2SAT 100
[2024-05-26 17:29] LABS: C Reactive Protein 8.47 mg/dL (< or = 0.50)
--- NOTE | 2024-05-26 18:20 | PC.NURSE ---
neo mango additional labs ordered by provider.
[2024-05-26] MEDS: vancomycin/NS 2,000 MG/500 ML PLAST..BAG 250 MG IV (19:35)
--- NOTE | 2024-05-26 19:42 | PM.IMHP ---
History of Present Illness Date of Service: 05/26/24 Attending physician on admission: Tianna Felder Chief Complaint: Right leg swelling and drainage Pt is a -year-old female with a PMH significant for MS, chronic AFib on Eliquis, chronic lymphedema, HTN, and dementia who presents to the ED from [facility] for evaluation left leg redness, swelling, and drainage. Patient has mild underlying dementia that primarily affects her short-term memory, and is unable to provide much meaningful HPI. Patient reports that her legs have been ?oozing? for maybe 1 week, though was uncertain as to duration. Complains of lower back pain due to resting in hospital bed, otherwise denies any acute medical complaints. No fever, chills. No chest pain/pressure, palpitations. No shortness a breath or difficulty breathing. Denies nausea, vomiting, abdominal pain. Patient's sister is at bedside who reports left leg erythema seems worse than prior, but has not looked at her sister's legs in a few weeks. In the ED pt was afebrile but tachycardic up to 100, and hypertensive up to 180/78. Labs were significant for leukocytosis of 11.1 and CRP of 8.47. Otherwise unremarkable. Stable H& H. No significant electrolyte abnormalities. Renal and hepatic function WNL. Lactic acid WNL at 1.0. EKG demonstrated atrial fibrillation without evidence of significant ST elevations or depressions. Pt was treated with vancomycin. Pt will be admitted to the hospital for treatment and further evaluation of extensive left lower extremity cellulitis in the setting of chronic lymphedema requiring IV antibiotics. Review of Systems Review of Systems: Yes all other systems are reviewed and are negative [facility] Medical History Seroma Persistent atrial fibrillation Chronic acquired lymphedema Multiple sclerosis Afib Atrial fibrillation Hypertension Family History Father No problems noted. Mother No problems noted. Other No family history of coronary artery disease Surgical History No pertinent past surgical history Social History Household Members: None Housing: Assisted Living Facility Do you presently have visiting nurse or other home services: Yes Patient Tobacco Use Status: Former Tobacco user Smoked in Last 30 Days: No Use of substances other than those prescribed or required for medical reasons: No Advance Directives: No Advance Directives Information Provided: No Do you have a plan to hurt others: No Plan service: No Current occupational status: retired Meds Allergies Allergy/AdvReac Type Severity Reaction Status Date / Time codeine [Codeine] Allergy Mild ITCH Verified 05/26/24 13:21 lisinopril [Lisinopril] Allergy Unknown VOMITING Verified 05/26/24 13:21 Active Medications: Current Medications Acetaminophen (Acetaminophen 325 Mg Tablet) 650 mg PO Q6H PRN PRN Reason: Pain, Mild (Pain Scale 1-3), fever or headache Apixaban (Apixaban 5 Mg Tablet) 5 mg PO BID TONG Calcium Carbonate (Calcium Carbonate 750 Mg Tab.Chew) 750 mg PO Q4H PRN PRN Reason: Heartburn Vancomycin HCl (Vancomycin/Ns) 2,000 mg in 500 mls @ 250 mls/hr IV ONCE ONE Stop: 05/26/24 21:03 Last Admin: 05/26/24 19:35 Dose: 250 mls/hr Magnesium Hydroxide (Milk Of Magnesia 30 Ml Oral.Susp) 30 ml PO DAILY PRN PRN Reason: Constipation Melatonin (Melatonin 3 Mg Tablet) 6 mg PO BEDTIME PRN PRN Reason: Insomnia Pharmacy Consult (Consult Rx Vancomycin Dosing) 1 each MISCELLANE DAILY PRN PRN Reason: Consult order Sodium Chloride (0.9 % Sodium Chloride Flush 3 Ml Syringe) [facility] Medications ?Medication ?Instructions ?Recorded ?Confirmed ?Last Taken ?Type acetaminophen 325 mg tablet 975 mg PO TID PRN Pain 06/01/22 05/26/24 05/25/24 21:00 History tramadol 50 mg tablet 1 tab PO Q6H PRN Pain 06/01/22 05/26/24 Unknown History amlodipine 5 mg tablet 5 mg PO DAILY 08/13/22 05/26/24 05/25/24 08:00 History citalopram 20 mg tablet 20 mg PO DAILY 08/13/22 05/26/24 05/25/24 08:00 History digoxin 125 mcg (0.125 mg) tablet 0.125 mg PO DAILY 08/13/22 05/26/24 05/25/24 08:00 History famotidine 20 mg tablet 20 mg PO DAILY 08/13/22 05/26/24 05/25/24 08:00 History tacrolimus 0.1 % topical ointment 1 appl topical BID PRN Rash 12/10/22 05/26/24 Unknown History aspirin 81 mg tablet,delayed 81 mg PO DAILY 05/26/24 05/26/24 05/25/24 08:00 History release atenolol 25 mg tablet 25 mg PO DAILY 05/26/24 05/26/24 05/25/24 History dextran 70-hypromellose eye drops 1 drp ophthalmic (eye) BID 05/26/24 05/26/24 05/25/24 20:00 History in a dropperette (Artificial Tears (PF) drops in a dropperette) furosemide 40 mg tablet 40 mg PO DAILY 05/26/24 05/26/24 05/25/24 08:00 History penicillin V potassium 500 mg 500 mg PO BID 05/26/24 05/26/24 05/25/24 20:00 History tablet polyethylene glycol 3350 17 17 g PO DAILY 05/26/24 05/26/24 05/25/24 08:00 History gram/dose oral powder (Miralax) sennosides 8.6 mg tablet (senna) 8.6 mg PO DAILY 05/26/24 05/26/24 05/25/24 08:00 History Physical Exam Vital Signs and Narrative: Vital Signs: Last Vital Signs Temp 97.9 F 05/26/24 17:06 Pulse 94 05/26/24 17:06 Resp 18 05/26/24 17:06 BP 180/78 H 05/26/24 17:06 Pulse Ox 100 05/26/24 17:06 O2 Del Method Room Air 05/26/24 17:06 BMI result Body Mass Index 51.4 General: AOx2, no acute distress Resp: CTA bilaterally CVS: Irregularly irregular rhythm GI: +BS, NT, no distention Skin: Warm, dry Neuro: Cranial nerves II-XII grossly intact bilaterally. Motor grossly intact bilaterally Extremities: Chronic lymphedema bilaterally. Left leg with chronic venous stasis dermatitis with overlying weeping lesion. Left leg with unilateral erythema, drainage, foul-smelling. Bilateral lichenification of lower extremities. As pictured below Psych: Pleasantly confused Results Labs 05/26/24 13:52 05/26/24 13:52 Labs: Laboratory Results - last 24 hr 05/26/24 05/26/24 13:52 18:11 MCV 85.7 MCH 27.3 MCHC 31.9 RDW 15.4 Plt Count 383 MPV 10.6 Immature Gran % (Auto) 0.4 Neut % (Auto) 78.0 H Lymph % (Auto) 9.4 L Bra[place] % (Auto) 9.5 Eos % (Auto) 1.8 Baso % (Auto) 0.9 Lymph # (Auto) 1.0 L [place] # (Auto) 1.1 Eos # (Auto) 0.2 Baso # (Auto) 0.1 Abs Immat Gran (auto) 0.05 H Absolute Neuts (auto) 8.7 H Absolute Nucleated RBC 0.000 Nucleated RBC % (auto) 0.0 PT 17.9 H INR 1.5 H Anion Gap 17 Estim Creat Clear Calc 96.6 Estimated GFR > 60 Random Glucose 118 H Lactic Acid 1.0 Calcium 9.2 D Magnesium 2.0 Total Bilirubin 0.7 Direct Bilirubin 0.2 AST 21 ALT 10 Alkaline Phosphatase 69 C-Reactive Protein 8.47 H B-Natriuretic Peptide 95 Total Protein 7.4 Albumin 3.9 Assessment and Plan (1) Cellulitis: Qualifiers: Laterality: left Site of cellulitis: extremity Site of cellulitis of extremity: lower extremity Qualified Code(s): L03.116 - Cellulitis of left lower limb Status: Acute Plan Pt is a -year-old female with a PMH significant for MS, chronic AFib on Eliquis, chronic lymphedema, HTN, and dementia who presents to the ED from [facility] for evaluation left leg redness, swelling, and drainage. Pt will be admitted to the hospital for treatment and further evaluation of extensive left lower extremity cellulitis in the setting of chronic lymphedema requiring IV antibiotics. Left lower extremity cellulitis Unilateral erythema, drainage, foul-smelling No sepsis: Elevated HR, but no fever, tachypnea, or leukocytosis; lactic acid WNL at 1.0 Will treat with vancomycin, started 05/26/2024 Wound care consult Follow cultures HTN Continue amlodipine, atenolol Chronic AFib Continue Eliquis, atenolol, digoxin Lymphedema Continue furosemide Mood disorder Continue citalopram Full Code Attending:?Dr. Felder DVT Prophylaxis: On Eliquis Pt will require a hospitalization of at least two nights for treatment of?left lower extremity cellulitis in the setting of chronic lymphedema that IV antibiotics. Quality Stroke Does the patient have a stroke diagnosis?: No VTE Prior VTE?: No VTE Risk Level:: Medical - moderate - high VTE Device Contraindication: Treatment Not Indicated VTE Drug Contraindication: N/A - Med Ordered
--- NOTE | 2024-05-26 19:50 | PHA.PROG ---
Admission Date/Time: Indication: SKin Weight in k.542 kg Adjusted body weight in Kg: [place] body weight in Kg: Obesity Dosing Indication % IBW: Serum Creatinine - Last 168 Hours 05/26/24 13:52 Creatinine 0.75 Estimated CrCl and GFR - Last 168 Hours 05/26/24 13:52 Estim Creat Clear Calc 96.6 Estimated GFR > 60 Vancomycin Loading Dose: 2000 mg Current Vancomycin Dosing Regimen: 1g q12h Vancomycin Monitoring using AUC goal of 400 - 600 range with trough as surrogate marker: 541 mg/L Date and Time for next Vancomycin Level to be drawn: 05/28/24 @0700 Pharmacist Comments on Vancomycin Plan: Will start 1g q12h tomorrow morning. Projected trough will be 16.5 mg/L. Vancomycin dosing will take advantage of [employer] as a clinical decision support tool that uses Bayesian modeling to calculate individual patient's pharmacokinetic parameters and forecast the patient's drug concentration time course with the target goal AUC 24 range of 400 - 600 mg/L/hr.
--- NOTE | 2024-05-26 20:35 | PHA.MEDREC ---
Addendum entered by Laurent Butler RPh 05/26/24 20:43: med rec reviewed Original Note: Pharmacy Consult ? Medication Reconciliation Pharmacy has completed the medication reconciliation. Utilized list from [facility] to confirm med list.
[2024-05-26 21:48] VITALS: BP 145/72; PULSE 93
[2024-05-26] MEDS: Apixaban 5 MG TABLET PO (21:48)
[2024-05-26] MEDS: atenoloL 25 MG TABLET PO (21:48)
[2024-05-26] MEDS: traMADoL HCL 50 MG TABLET PO (21:52)
--- NOTE | 2024-05-26 23:57 | PC.NURSE ---
Pt use of bedside commode for bowel movement. Medium loose stool. Staff assist x2 to get patients legs back into bed. Positioned comfortably at this time.
[2024-05-27] VITALS (8 sets, daily range): BP systolic 127–142; BP diastolic 60–78; PULSE 62–86; RESP 15–18; TEMP 36.3–36.9; O2SAT 96–99; BMI 52.8
--- NOTE | 2024-05-27 01:08 | PC.NURSE ---
Pt brought up to med durg unit via stretcher with stained glass window designer and RN. Stand pivot with 2 person assist with the help from medical office receptionist assistant. Pt adjusted in bed for comfort.
[2024-05-27] MEDS: 0.9 % Sodium Chloride Flush 3 ML SYRINGE IVFLUSH ×4 (01:32→20:14)
[2024-05-27 06:26] LABS: MANUAL DIFF FLAG NO
[2024-05-27 06:28] LABS: Hematocrit 35.1 % (37.0-47.0); Hemoglobin 11.1 g/dl (12.0-16.0); Red Blood Count 4.04 X10*6/uL (4.20-5.50); White Blood Count 10.7 X10*3/uL (4.8-10.8)
[2024-05-27 06:29] LABS: Basophils Absolute Auto 0.1 X10*3/uL (0.0-0.2); Basophils Percent Auto 0.8 % (0-2); Eosinophils Absolute Auto 0.2 X10*3/uL (0.0-0.4); Eosinophils Percent Auto 1.9 % (0-4); Imm Gran Abs Auto 0.04 X10*3/uL (0.00-0.03); Imm Gran Pct Auto 0.4 % (0.0-0.4); Lymphocytes Absolute Auto 1.2 X10*3/uL (1.2-4.9); Lymphocytes Percent Auto 11.1 % (20-40); Mean Corpuscular HGB Conc 31.6 g/dl (31.0-35.0); Mean Corpuscular Hemoglobin 27.5 pg (27.0-33.0); Mean Corpuscular Volume 86.9 fL (80.0-98.0); Mean Platelet Volume 11.2 fL (9.4-12.3); Monocytes Absolute Auto 1.2 X10*3/uL (0.1-1.2); Monocytes Percent Auto 11.6 % (2-11); Neutrophils Absolute Auto 7.9 x10*3/uL (2.0-8.3); Neutrophils Percent Auto 74.2 % (45-73); Platelet Count 364 X10*3/uL (160-400); Red Cell Distribution Width 15.6 % (11.0-16.0)
[2024-05-27 06:44] LABS: Anion Gap 11 (12-20); Blood Urea Nitrogen 10 mg/dL (9-16); Calcium 8.5 mg/dL (8.4-10.2); Carbon Dioxide 27 mmol/L (22-29); Chloride 105 mmol/L (96-108); Creatinine Clr Calc Pharmacy 106.8; Estimated Glomerular Filt Rate > 60; Glucose Random 106 mg/dL (60-115); Potassium 3.9 mmol/L (3.3-5.1); Sodium 139 mmol/L (135-145)
--- NOTE | 2024-05-27 08:22 | HE.PHANOTE ---
Re: Janelle Renal function improving. No trough due today. Continue current dose of 1000mg q12h, with predicted AUC 521, predicted AUC 15.7. Next trough 05/28 @ 0700.
[2024-05-27] MEDS: atenoloL 25 MG TABLET PO (08:32)
[2024-05-27] MEDS: polyethylene glycoL 3350 17 GM POWD.PACK PO (08:32)
[2024-05-27] MEDS: vancomycin HCL 1,000 MG in 0.9 % Sodium Chloride 250 ML 270 MG IV ×2 (08:32→20:13)
[2024-05-27] MEDS: traMADoL HCL 50 MG TABLET PO ×3 (08:33→21:16)
[2024-05-27] MEDS: Apixaban 5 MG TABLET PO ×2 (08:33→20:13)
[2024-05-27] MEDS: Aspirin Enteric Coated 81 MG TABLET.DR PO (08:33)
[2024-05-27] MEDS: amLODIPine Besylate 5 MG TABLET PO (08:33)
[2024-05-27] MEDS: Escitalopram Oxalate 10 MG TABLET PO (08:33)
[2024-05-27] MEDS: Sennosides 8.6 MG TABLET PO (08:33)
[2024-05-27] MEDS: Digoxin 0.125 MG TABLET PO (08:33)
[2024-05-27] MEDS: Famotidine 20 MG TABLET PO (08:33)
[2024-05-27] MEDS: Furosemide 40 MG TABLET PO (08:34)
--- NOTE | 2024-05-27 09:53 | MHC.CM.PN ---
IMM 05/27. Pt lives at [facility], she uses a walker. Pts sister to transport her home. Pt states she has a HCP, and it is her sister, but she does not have a copy. This CM called pts sister Edita to request a copy of the HCP, voicemail was left. PCP: Dr. Harshal Thompson
--- NOTE | 2024-05-27 10:43 | HO.WOUND ---
Addendum entered by Sofy Townsend RN 05/27/24 12:10: Wound Consult: Initial 69yr old?female admitted to [facility] on 05/26/24 - See progress notes and H&P for detailed history.? Wound consult placed for Bilateral Lower Legs.? Patient agreeable to assessment and photo documentation.? Right Leg Left Leg Left Lateral Leg wound Etiology: Bilateral Lower Leg Lymphedema and venous dermatitis Measurements: 2cm x 2cm x 0.1cm - left lateral leg open wound partial thickness tissue loss red pink moist wound bed with epidermal layer reapproximated Wound Bed: dry thickened tissue with redness and lymphatic changes noted and areas of Papillomatous Plaques noted Drainage / Odor: yellow drainage noted on bed linen Edges: ? attached Alannah wound: ?lymphedema No Induration, Fluctuance noted Pain: denies pain Goals of Treatment: ? Moisture management and drainage absorption OT referral for outpt Lymphedema clinic follow up Recommendations: 1. Turn and Reposition every 2 hours and as needed for patient comfort.? Use pillows or wedges to support off loading positions. 2. Off Load all bony prominences with use of pillows and heel boots if needed.? Apply Preventative foams where needed. ? 3. Monitor for incontinence and moisture control, use barrier creams when needed for prevention and treatment. 4. Provide adequate and supplemental nutrition.? 5. Order Bariatric bed 6. When applicable maintain blood glucose levels per Providers order. 7. Bilateral Lower Legs - Elevate Lower Legs on pillows. Cleanse with Ph Balanced Nathan Lincoln, wipe clean. Apply Durafiber AG to open wound beds, cover lower legs with zinc barrier cream or vaseline and change dry flow pads under legs as needed. Change Durafiber every 3 days and PRN. Patient should follow up outpt with OT for Lymphedema and compression therapy.? [facility] [address] [place] [address] . Re-consult wound care Nurse for wound deterioration or wound changes. Original Note: Wound Consult: Initial 69yr old?female admitted to [facility] on 05/26/24 - See progress notes and H&P for detailed history.? Wound consult placed for Bilateral Lower Legs.? Patient agreeable to assessment and photo documentation.? Re-consult wound care Nurse for wound deterioration or wound changes.
--- NOTE | 2024-05-27 13:55 | HO.PM.IMPN ---
Subjective Subjective Date of Service: 05/27/24 Interval History: Seen and evaluated this morning feels better overall Rash is improving no fever Review of Systems Review of Systems: Yes all other systems are reviewed and are negative Physical Exam Vital Signs: Vital Signs: Last Vital Signs Temp 97.4 F 05/27/24 07:19 Pulse 86 05/27/24 08:32 Resp 18 05/27/24 07:19 BP 142/76 H 05/27/24 08:34 Pulse Ox 98 05/27/24 07:19 O2 Del Method Room Air 05/27/24 07:19 BMI result Body Mass Index 52.8 Const: Other: Constitutional : Awake, interactive, not in distress Neck : Normal inspection, Supple Cardiovascular : RRR, no JVP, no lower extremity edema Respiratory : good bilateral air entry, no crackles, wheezes or rhonchi Gastrointestinal: soft, lax, Normal bowel sounds, Non tender Skin : Warm, Dry, The patient has severe chronic lymphedema of both lower legs with erythema noted on left lower leg more than RLE with areas of chronic skin breakdown in folds of redundant skin bilaterally. Neurological : Alert & oriented x3, No focal deficit Objective Data Active Medications Acetaminophen (Acetaminophen 325 Mg Tablet) 650 mg PO Q6H PRN PRN Reason: Pain, Mild (Pain Scale 1-3), fever or headache Amlodipine Besylate (Amlodipine Besylate 5 Mg Tablet) 5 mg PO DAILY [facility]; Protocol Last Admin: 05/27/24 08:33 Dose: 5 mg Documented By: NEISHA Apixaban (Apixaban 5 Mg Tablet) 5 mg PO BID [facility] Last Admin: 05/27/24 08:33 Dose: 5 mg Documented By: NEISHA Artificial Tears (Artificial Tears 15 Ml Drops) 1 drop EYE-BOTH BID [facility] Last Admin: 05/27/24 08:34 Dose: Not Given Documented By: NEISHA Non-Admin Reason: Med Not Available Comments: pharm notified Aspirin (Aspirin Enteric Coated 81 Mg Tablet.) 81 mg PO DAILY [facility] Last Admin: 05/27/24 08:33 Dose: 81 mg Documented By: NEISHA Atenolol (Atenolol 25 Mg Tablet) 25 mg PO DAILY [facility]; Protocol Last Admin: 05/27/24 08:32 Dose: 25 mg Documented By: NEISHA Calcium Carbonate (Calcium Carbonate 750 Mg Tab.Chew) 750 mg PO Q4H PRN PRN Reason: Heartburn Digoxin (Digoxin 0.125 Mg Tablet) 0.125 mg PO DAILY [facility]; Protocol Last Admin: 05/27/24 08:33 Dose: 0.125 mg Documented By: NEISHA Escitalopram Oxalate (Escitalopram Oxalate 10 Mg Tablet) 10 mg PO DAILY [facility] Last Admin: 05/27/24 08:33 Dose: 10 mg Documented By: NEISHA Famotidine (Famotidine 20 Mg Tablet) 20 mg PO DAILY [facility] Last Admin: 05/27/24 08:33 Dose: 20 mg Documented By: NEISHA Furosemide (Furosemide 40 Mg Tablet) 40 mg PO DAILY [facility]; Protocol Last Admin: 05/27/24 08:34 Dose: 40 mg Documented By: NEISHA Vancomycin HCl 1,000 mg/ (Sodium Chloride) 270 mls @ 270 mls/hr IV BID [facility] Last Infusion: 05/27/24 11:31 Dose: Infused Documented By: GRACE Magnesium Hydroxide (Milk Of Magnesia 30 Ml Oral.Susp) 30 ml PO DAILY PRN PRN Reason: Constipation Melatonin (Melatonin 3 Mg Tablet) 6 mg PO BEDTIME PRN PRN Reason: Insomnia Pharmacy Consult (Consult Rx Vancomycin Dosing) 1 each MISCELLANE DAILY PRN PRN Reason: Consult order Polyethylene Glycol (Polyethylene Glycol 3350 17 Gm Powd.Pack) 17 gm PO DAILY [facility] Last Admin: 05/27/24 08:32 Dose: 17 gm Documented By: NEISHA Senna (Sennosides 8.6 Mg Tablet) 8.6 mg PO DAILY [facility] Last Admin: 05/27/24 08:33 Dose: 8.6 mg Documented By: NEISHA Sodium Chloride (0.9 % Sodium Chloride Flush 3 Ml Syringe) 3 ml IVFLUSH QSHIFT [facility] Last Admin: 05/27/24 08:34 Dose: 3 ml Documented By: NEISHA Tramadol HCl (Tramadol Hcl 50 Mg Tablet) 50 mg PO Q6H PRN PRN Reason: Pain, Moderate(Pain Scale 4-6) Last Admin: 05/27/24 08:33 Dose: 50 mg Documented By: NEISHA Labs 05/27/24 05:26 05/27/24 05:26 Labs: Laboratory Results - last 24 hr 05/26/24 05/26/24 05/27/24 13:52 18:11 05:26 MCV 85.7 86.9 MCH 27.3 27.5 MCHC 31.9 31.6 RDW 15.4 15.6 Plt Count 383 364 MPV 10.6 11.2 Immature Gran % (Auto) 0.4 0.4 Neut % (Auto) 78.0 H 74.2 H Lymph % (Auto) 9.4 L 11.1 L [place] % (Auto) 9.5 11.6 H Eos % (Auto) 1.8 1.9 Baso % (Auto) 0.9 0.8 Lymph # (Auto) 1.0 L 1.2 [place] # (Auto) 1.1 1.2 Eos # (Auto) 0.2 0.2 Baso # (Auto) 0.1 0.1 Abs Immat Gran (auto) 0.05 H 0.04 H Absolute Neuts (auto) 8.7 H 7.9 Absolute Nucleated RBC 0.000 0.000 Nucleated RBC % (auto) 0.0 0.0 PT 17.9 H INR 1.5 H Anion Gap 17 11 L Estim Creat Clear Calc 96.6 106.8 Estimated GFR > 60 > 60 Random Glucose 118 H 106 Lactic Acid 1.0 Calcium 9.2 D 8.5 D Magnesium 2.0 Total Bilirubin 0.7 Direct Bilirubin 0.2 AST 21 ALT 10 Alkaline Phosphatase 69 C-Reactive Protein 8.47 H B-Natriuretic Peptide 95 Total Protein 7.4 Albumin 3.9 Assessment and Plan (1) Varicose veins of left lower extremity with inflammation: Status: Acute (2) Cellulitis: Status: Acute (3) Lymphedema: Status: Acute Plan Pt is a -year-old female with a PMH significant for MS, chronic AFib on Eliquis, chronic lymphedema, HTN, and dementia who presents [facility] the ED from [facility] for evaluation left leg redness, swelling, and drainage. Pt will be admitted to the hospital for treatment and further evaluation of extensive left lower extremity cellulitis in the setting of chronic lymphedema requiring IV antibiotics. acute Left lower extremity cellulitis 2/2 chronic lymphedema Not septic local treatment Contiue IV vancomycin, started 05/26/2024 Follow cultures Follow Vancomycin trough Wound care following Consider OT for lymphedema pump therapy HTN Continue amlodipine, atenolol Chronic AFib Continue Eliquis, atenolol, digoxin Lymphedema Continue furosemide Mood disorder Continue citalopram Full Code DVT Prophylaxis: On Eliquis Pt will require a hospitalization oovernight for treatment of?left lower extremity cellulitis in the setting of chronic lymphedema that IV antibiotics. Quality Stroke Does the patient have a stroke diagnosis?: No VTE Prior VTE?: No VTE Risk Level:: Medical - moderate - high VTE Device Contraindication: Treatment Not Indicated VTE Drug Contraindication: N/A - Med Ordered
[2024-05-27] MEDS: Acetaminophen 325 MG TABLET 650 MG PO (15:10)
[2024-05-27] MEDS: Artificial Tears 15 ML DROPS 1 DROP EYE-BOTH (21:16)
[2024-05-28] VITALS: BP 160/72; PULSE 86; RESP 17; TEMP 36.6; O2SAT 97
[2024-05-28 03:46] VITALS: BP 159/61; PULSE 88; RESP 17; TEMP 36.5; O2SAT 97
[2024-05-28 07:11] VITALS: BP 142/82; PULSE 82; RESP 16; TEMP 37.2; O2SAT 97
[2024-05-28] MEDS: traMADoL HCL 50 MG TABLET PO (07:12)
[2024-05-28 07:30] LABS: Anion Gap 14 (12-20); Blood Urea Nitrogen 11 mg/dL (9-16); Calcium 8.4 mg/dL (8.4-10.2); Carbon Dioxide 26 mmol/L (22-29); Chloride 104 mmol/L (96-108); Creatinine Clr Calc Pharmacy 105.2; Estimated Glomerular Filt Rate > 60; Glucose Random 100 mg/dL (60-115); Potassium 3.8 mmol/L (3.3-5.1); Sodium 140 mmol/L (135-145)
[2024-05-28 07:40] LABS: Vancomycin Random 9.6 mcg/mL (15-20)
--- NOTE | 2024-05-28 07:52 | HE.PHANOTE ---
Re: Janelle Good renal function. Trough returned at 9.6. Continue current dose of 1,000mg q12h with predicted AUC 445, predicted trough 13.3. Next trough 05/29 @ 1900.
[2024-05-28] MEDS: Sennosides 8.6 MG TABLET PO (08:01)
[2024-05-28] MEDS: Apixaban 5 MG TABLET PO (08:01)
[2024-05-28] MEDS: 0.9 % Sodium Chloride Flush 3 ML SYRINGE IVFLUSH (08:01)
[2024-05-28] MEDS: atenoloL 25 MG TABLET PO (08:01)
[2024-05-28] MEDS: Famotidine 20 MG TABLET PO (08:01)
[2024-05-28] MEDS: Digoxin 0.125 MG TABLET PO (08:01)
[2024-05-28] MEDS: Aspirin Enteric Coated 81 MG TABLET.DR PO (08:01)
[2024-05-28] MEDS: Escitalopram Oxalate 10 MG TABLET PO (08:02)
[2024-05-28] MEDS: Furosemide 40 MG TABLET PO (08:02)
[2024-05-28] MEDS: amLODIPine Besylate 5 MG TABLET PO (08:02)
[2024-05-28] MEDS: vancomycin HCL 1,000 MG in 0.9 % Sodium Chloride 250 ML 270 MG IV (08:48)
[2024-05-28] MEDS: Artificial Tears 15 ML DROPS 1 DROP EYE-BOTH (08:50)
--- NOTE | 2024-05-28 11:03 | P.DS_ITS ---
DS: Providers Provider Date of Service: 05/28/24 Date of admission: 05/26/24 19:50 Date of discharge: 05/28/24 Primary care physician: Harshal Thompson MD Consults: 05/26/24 20:41 Consult to Wound Care Routine Reason for consultation: Left lower extremity cellulitis, lymphedema DS: Diagnosis Discharge Diagnosis (1) Varicose veins of left lower extremity with inflammation: Status: Acute (2) Cellulitis: Status: Acute (3) Lymphedema: Status: Acute DS: Summary Hospital Course Hospital Course: Admission note HPI Pt is a -year-old female with a PMH significant for MS, chronic AFib on Eliquis, chronic lymphedema, HTN, and dementia who presents to the ED from [facility] for evaluation left leg redness, swelling, and drainage. Patient has mild underlying dementia that primarily affects her short-term memory, and is unable to provide much meaningful HPI. Patient reports that her legs have been ?oozing? for maybe 1 week, though was uncertain as to duration. Complains of lower back pain due to resting in hospital bed, otherwise denies any acute medical complaints. No fever, chills. No chest pain/pressure, palpitations. No shortness a breath or difficulty breathing. Denies nausea, vomiting, abdominal pain. Patient's sister is at bedside who reports left leg erythema seems worse than prior, but has not looked at her sister's legs in a few weeks. In the ED pt was afebrile but tachycardic up to 100, and hypertensive up to 180/78. Labs were significant for leukocytosis of 11.1 and CRP of 8.47. Otherwise unremarkable. Stable H& H. No significant electrolyte abnormalities. Renal and hepatic function WNL. Lactic acid WNL at 1.0. EKG demonstrated atrial fibrillation without evidence of significant ST elevations or depressions. Pt was treated with vancomycin. Pt will be admitted to the hospital for treatment and further evaluation of extensive left lower extremity cellulitis in the setting of chronic lymphedema requiring IV antibiotics. Hospital course The patient was admitted for acute Left lower extremity cellulitis secondary to chronic lymphedema. She was Not septic on admission. Started on Vancomycin with good response as warmth, erythema and tenderness improved over the course of hospital stay as her blood cultures remained negative. She was evaluated by wound care team with recommendations mentioned below. referred for occupational therapy for possible pump therapy for lymphedema which can be followed as outpatient with [facility] OT. To continue 1 more week of Doyxycyline and Augmentin and to follow wound care recommendations as below. Discharge plan Continue Doxycycline and Augmentin twice daily for 1 more week Elevated legs , clean and keep dry Follow wound care recommendations as above Topical Wound Care Recommendations: Bilateral Lower Legs - Elevate Lower Legs on pillows. Cleanse with Ph Balanced Nathan Avery, wipe clean. Apply Durafiber AG to open wound beds, cover lower legs with zinc barrier cream or vaseline and change dry flow pads under legs as needed. Change Durafiber every 3 days and PRN. Patient should follow up outpt with OT for Lymphedema and compression therapy.? [facility] [place] [address] . Time Attestation Discharge Coordination Time (in mins): 42 Quality: Safe Use of Opioids Does Pt have an Active Cancer Diagnosis on the Problem List?: No Quality: Stroke Does the patient have a stroke diagnosis?: No Physical Exam Vital Signs: Vital Signs: Last Vital Signs Temp 99 F 05/28/24 07:11 Pulse 82 05/28/24 07:11 Resp 16 05/28/24 07:11 BP 142/82 H 05/28/24 07:11 Pulse Ox 97 05/28/24 07:11 O2 Del Method Room Air 05/28/24 07:11 BMI result Body Mass Index 52.8 Const: Other: Constitutional : Awake, interactive, not in distress Neck : Normal inspection, Supple Cardiovascular : RRR, no JVP, no lower extremity edema Respiratory : good bilateral air entry, no crackles, wheezes or rhonchi Gastrointestinal: soft, lax, Normal bowel sounds, Non tender Skin : Warm, Dry, The patient has severe chronic lymphedema of both lower legs with less erythema noted on left lower legwith areas of chronic skin breakdown in folds of redundant skin bilaterally. Neurological : Alert & oriented x3, No focal deficit DS: Data Data Completed and Pending Labs on day of discharge: Laboratory Results - last 24 hr 05/28/24 07:08 Sodium 140 Potassium 3.8 Chloride 104 Carbon Dioxide 26 Anion Gap 14 BUN 11 Creatinine 0.70 Estim Creat Clear Calc 105.2 Estimated GFR > 60 Random Glucose 100 Calcium 8.4 Random Vancomycin 9.6 L Preliminary micro results at discharge 05/26/24 18:11 Blood Culture - Preliminary Blood - Venous No growth after 24 hours. 05/26/24 18:05 Blood Culture - Preliminary Blood - Venous No growth after 24 hours. Imaging Chest x-ray: Radiologist's impression: ITS Impressions Venous Duplex 05/26/24 17:11 IMPRESSION: Normal triplex scan without evidence of deep venous thrombosis involving the bilateral lower extremities. Exam limited by patient body habitus. Electronically signed by: Ariel Schwartz MD 05/26/2024 08:19 PM EDT RP Discharge Plan Discharge Anticipated Discharge Date/Time: 05/28/24 10:50 Patient Disposition: Xfer Other Discharge Diagnosis: Cellulitis Lymphedema Referrals: [facility] [Outside] - 1 Week (TRANSFER BACK TO [facility]) Harshal Thompson MD [Primary Care Provider] - 1 Week Discharge Medications: New doxycycline monohydrate 100 mg capsule 100 mg PO BID Qty: 14 0RF amoxicillin-pot clavulanate 875-125 mg tablet 1 tab PO BID Qty: 14 0RF ammonium lactate 12 % lotion 1 appl topical BID Qty: 400 1RF Rx Instructions: Lower extremities bilaterally Continued tramadol 50 mg tablet 1 tab PO Q6H PRN (Reason: Pain) acetaminophen 325 mg Tablet 975 mg PO TID PRN (Reason: Pain) Eliquis 5 mg Tablet 5 mg PO BID Qty: 60 0RF amlodipine 5 mg tablet 5 mg PO DAILY citalopram 20 mg tablet 20 mg PO DAILY famotidine 20 mg tablet 20 mg PO DAILY furosemide 40 mg Tablet 40 mg PO DAILY sennosides [senna] 8.6 mg Tablet 8.6 mg PO DAILY aspirin 81 mg Tablet,Delayed Release (Dr/Ec) 81 mg PO DAILY polyethylene glycol 3350 [Miralax] 17 gram/dose Powder 17 g PO DAILY Rx Instructions: mix with 6-8oz of water Artificial Tears (PF) Dropperette 1 drp OPHTHALMIC (EYE) BID atenolol 25 mg Tablet 25 mg PO DAILY digoxin 125 mcg (0.125 mg) tablet 0.125 mg PO DAILY tacrolimus 0.1 % ointment 1 appl topical BID PRN (Reason: Rash) Discontinued penicillin V potassium 500 mg Tablet 500 mg PO BID Discharge Orders: Discharge Order (Routine); Ordered 05/28/24 Ordered By: Daren Rossi Diet: Low salt diet Activity on Discharge: As tolerated Stand Alone Forms: Patient Portal Discharge page Print Language: Djiboutian Activity Restrictions/Additional Instructions: Topical Wound Care Recommendations: Bilateral Lower Legs - Elevate Lower Legs on pillows. Cleanse with Ph Balanced Nathan Avery, wipe clean. Apply Durafiber AG to open wound beds, cover lower legs with zinc barrier cream or vaseline and change dry flow pads under legs as needed. Change Durafiber every 3 days and PRN. Patient should follow up outpt with OT for Lymphedema and compression therapy.? [facility] [place] [address] . Care Plan Goals: Continue Doxycycline and Augmentin twice daily for 1 more week Elevated legs , clean and keep dry Follow wound care recommendations as above Health Concerns: Lymphedema Cellulitis Plan of Treatment: Antibiotics Wound care Assessment: as above
--- NOTE | 2024-05-28 15:00 | W.MHC.F2F ---
Service Date Service Date: 05/28/24 Encounter Date of encounter: 05/28/24 Reasons for Services Signs and symptoms assessed: Lower extremities wound Lymphedema physical deconditioning Reason for senior living: wound care ( Elevate Lower Legs on pillows. Cleanse with Ph Balanced Nathan Fair[place], wipe clean. Apply Durafiber AG to open wound beds, cover lower legs with zinc barrier cream or vaseline and change dry flow pads under legs as needed. Change Durafiber every 3 days and PRN. Patient should follow up outpt with OT) Reason for physical therapy: home safety and mobility and therapeutic exercises Homebound: Leaving the home is medically contraindicated at this time without the asist of a device and/or another person due th the listed conditions above and below. Reason homebound: unable to drive Certification: Based on the above findings, I certify that this patient is confined to the home and needs intermittent senior living care, physical therapy and/or speech therapy, or continues to need occupational therapy. The patient is under my care, and I have initiated the establishment of the plan of care. The patient will be followed by a physician who will periodically review the plan of care. Time Spent With Patient Time: Total time managing care of this patient today ____ minutes.
[2024-05-28 15:19] VITALS: BP 150/72; PULSE 84; RESP 18; TEMP 37.1; O2SAT 97
--- NOTE | 2024-05-28 15:44 | MHC.CM.PN ---
DP: PT HAS BEEN MEDICALLY CLEARED FOR DC BACK TO [facility] WITH [facility] FOR SN[facility]PT. TRANSPORT BOOKED FOR 3: 30 PM VIA [facility]LL[facility] NURSE UPDATED. SISTER/HCP UPDATED. RN AWARE.
--- NOTE | 2024-06-02 11:41 | P.CDIM_ITS ---
PROVIDER RESPONSE TEXT: To clarify, the appropriate diagnosis supported by the clinical indicators: Severe or Morbid Obesity Without alveolar hypoventilation QUERY TEXT: PHYSICIAN'S DOCUMENTATION REQUEST Date of Query: 05/28/2024 08:07 AM EDT Patient Name: Mark Garcia Admit Date: 05/26/2024 Dear Daren Rossi MD, A review of the medical record indicates additional documentation may be needed. Please review below and update the documentation accordingly. Clinical Indicators: Height: 5ft 3in Weight: 135.1kg BMI: 52.8 If possible, please provide an associated diagnosis related to the abnormal BMI, such as: Severe or Morbid Obesity With alveolar hypoventilation Severe or Morbid Obesity Without alveolar hypoventilation Obesity Other (explain) Clinically unable to determine (explain) Thank you, Peyton Jade, CCS, CDIS Use of terms such as suspected, likely, concern for, or probable (associated with a specific diagnosi s that is being evaluated, monitored, or treated as if it exists) are acceptable and can be coded in the inpatient se tting, when documented at the time of discharge. Please use your independent medical judgment in providing your response. THIS QUERY IS PART OF THE PERMANENT MEDICAL RECORD
== END 2024-05-28 16:51 | disposition home health service (06) | DRG 603 ==
LOC: HO.ED 19:46 → HO.EDOVER 19:52 → HO.S3 05-27 00:14
PROVIDERS: Physician Assistant; Admitting Provider Student in an Organized Health Care Education/Training Program; Emergency Provider Emergency Medicine; PCP Internal Medicine; Visit Provider Student in an Organized Health Care Education/Training Program
DX: L03.116 Cellulitis of left lower limb (principal); I48.20 Chronic atrial fibrillation, unspecified; Z68.43 Body mass index [BMI] 50.0-59.9, adult; I89.0 Lymphedema, not elsewhere classified; E66.01 Morbid (severe) obesity due to excess calories; G35 Multiple sclerosis; F39 Unspecified mood [affective] disorder; Z87.891 Personal history of nicotine dependence; Z79.01 Long term (current) use of anticoagulants; Z79.82 Long term (current) use of aspirin; Z79.899 Other long term (current) drug therapy
CPT/HCPCS: 36415; 80048; 80076; 80202; 83605; 83735; 83880; 85025; 85610; 86140; 87040; 93005; 93970; 97162; 97167; 99285; J3370

== ENCOUNTER → 2024-05-26 16:54 | Outpatient (BNV) | payer MEDICARE, MEDICAID, SELFPAY | PROVIDERS: Admitting Provider Student in an Organized Health Care Education/Training Program; Emergency Provider Emergency Medicine; PCP Internal Medicine; Visit Provider Internal Medicine | DX: I48.91 Unspecified atrial fibrillation (principal); R94.31 Abnormal electrocardiogram [ECG] [EKG] | CPT/HCPCS: 93010 ==

== ENCOUNTER → 2024-05-26 19:50 | Outpatient (BNV) | payer MEDICARE, MEDICAID, SELFPAY | PROVIDERS: Admitting Provider Student in an Organized Health Care Education/Training Program; Emergency Provider Emergency Medicine; PCP Internal Medicine; Visit Provider Student in an Organized Health Care Education/Training Program | DX: I83.12 Varicose veins of left lower extremity with inflammation (principal); L03.116 Cellulitis of left lower limb; I89.0 Lymphedema, not elsewhere classified | CPT/HCPCS: 99222; 99232; 99239; G0180 ==

== ENCOUNTER 2024-11-09 10:12 | Inpatient (IN) | payer MEDICARE, MEDICAID, SELFPAY ==
[2024-11-09] VITALS (7 sets, daily range): BP systolic 122–136; BP diastolic 51–64; PULSE 75–86; RESP 15–20; TEMP 36.5–36.8; O2SAT 96–99; BMI 50.5
--- NOTE | ~2024-11-09 | CT_ITS ---
EXAMINATION: CT CHEST WITH IV CONTRAST INDICATION: SOB COMPARISON: Correlation is made with PA and lateral views of the chest dated 06/06/2018. TECHNIQUE: Helical CT scan of the chest was performed following administration of intravenous contrast. Coronal and sagittal reformatted images were generated and reviewed. This CT exam was performed with one or more of the following dose reduction techniques: automated exposure control, adjustment of the mA and/or kV according to patient size, use of iterative reconstruction technique. DLP: 618 mGy-cm CHEST: THYROID: The right thyroid lobe is surgically absent. The left thyroid lobe is unremarkable. LUNGS: There is linear scarring at the right lung apex and both lower lobes. There is mild dependent atelectasis bilaterally. There is a 6 x 2 mm subpleural nodule in the right upper lobe (series 4, image 59). MEDIASTINUM: There is no mediastinal lymphadenopathy. SAM: There is no hilar lymphadenopathy. CARDIOVASCULATURE: The heart is enlarged. There is no pericardial effusion. The thoracic aorta is normal in caliber. DEGREE OF CORONARY CALCIFICATION: none PLEURA: There is no pleural effusion. No pneumothorax. MAIN AIRWAYS: The mainstem bronchi and proximal branches are patent. AXILLA: There is no axillary lymphadenopathy. BONES AND SOFT TISSUES: There is degenerative disc disease of the spine. UPPER ABDOMEN: The visualized portions of the liver, spleen, and adrenals are unremarkable. CT/CT chest w IV con IMPRESSION: Cardiomegaly. Bilateral lung scarring. No focal airspace opacity is identified. Electronically signed by: Kali Everett MD 11/10/2024 03:06 PM EDT
[2024-11-09 10:55] LABS: Basophils Absolute Auto 0.1 X10*3/uL (0.0-0.2); Basophils Percent Auto 0.6 % (0-2); Eosinophils Absolute Auto 0.1 X10*3/uL (0.0-0.4); Eosinophils Percent Auto 0.9 % (0-4); Hemoglobin 11.8 g/dl (12.0-16.0); Imm Gran Abs Auto 0.08 X10*3/uL (0.00-0.03); Imm Gran Pct Auto 0.6 % (0.0-0.4); Lymphocytes Percent Auto 7.2 % (20-40); MANUAL DIFF FLAG SCAN; Mean Corpuscular HGB Conc 31.9 g/dl (31.0-35.0); Mean Corpuscular Hemoglobin 27.1 pg (27.0-33.0); Mean Corpuscular Volume 85.1 fL (80.0-98.0); Mean Platelet Volume 10.2 fL (9.4-12.3); Monocytes Absolute Auto 1.5 X10*3/uL (0.1-1.2); Monocytes Percent Auto 10.8 % (2-11); Neutrophils Absolute Auto 11.3 x10*3/uL (2.0-8.3); Neutrophils Percent Auto 79.9 % (45-73); Platelet Count 402 X10*3/uL (160-400); Red Blood Count 4.35 X10*6/uL (4.20-5.50); Red Cell Distribution Width 15.6 % (11.0-16.0); SCAN SMEAR FLAG 1; White Blood Count 14.2 X10*3/uL (4.8-10.8)
[2024-11-09 11:00] LABS: INTERNATIONAL NORM RATIO 1.9 (0.9-1.1); Prothrombin Time 21.6 SEC (10.9-12.4)
--- NOTE | 2024-11-09 11:13 | ED_ITS ---
HPI - Fall General Chief Complaint: Fall Stated Complaint: Fall from standing ht, -HS, -LOC, +Eliquis Time Seen by Provider: 11/09/24 10:19 Source: patient, EMS and old records reviewed Mode of arrival: EMS Limitations: no limitations History of Present Illness ED Provider: ISMAEL HPI Narrative: 69 yo female with PMH of afib on eliquis, HTN, lymphema and chronic venous stasis wounds, here with c/o her R knee chronically giving out and she landed on her buttocks she was on the ground for only 30 minutes she did not hit her head and just sat on her buttocks. She denies any trauma she has no pain she states the assisted living facility made her get checked out. She has chronic leg wounds and weeping and her [facility] only has VNA once a week. She denies fevers, change in the wounds. She has no other complaints. MD complaint: fall Onset (ago): minute(s) (30) Fall from: standing Fall witnessed: no Place fall occurred: home Loss of consciousness: none Prolonged down time: no Symptoms prior to fall: none Context: tripped/slipped Associated symptoms (after fall): denies Related Data Home Medications ?Medication ?Instructions ?Recorded ?Confirmed acetaminophen 325 mg tablet 975 mg PO TID PRN Pain 06/01/22 05/26/24 tramadol 50 mg tablet 1 tab PO Q6H PRN Pain 06/01/22 05/26/24 amlodipine 5 mg tablet 5 mg PO DAILY 08/13/22 05/26/24 citalopram 20 mg tablet 20 mg PO DAILY 08/13/22 05/26/24 digoxin 125 mcg (0.125 mg) tablet 0.125 mg PO DAILY 08/13/22 05/26/24 famotidine 20 mg tablet 20 mg PO DAILY 08/13/22 05/26/24 tacrolimus 0.1 % topical ointment 1 appl topical BID PRN Rash 12/10/22 05/26/24 aspirin 81 mg tablet,delayed 81 mg PO DAILY 05/26/24 05/26/24 release atenolol 25 mg tablet 25 mg PO DAILY 05/26/24 05/26/24 dextran 70-hypromellose eye drops 1 drp ophthalmic (eye) BID 05/26/24 05/26/24 in a dropperette (Artificial Tears (PF) drops in a dropperette) furosemide 40 mg tablet 40 mg PO DAILY 05/26/24 05/26/24 polyethylene glycol 3350 17 17 g PO DAILY 05/26/24 05/26/24 gram/dose oral powder (Miralax) sennosides 8.6 mg tablet (senna) 8.6 mg PO DAILY 05/26/24 05/26/24 Previous Rx's ?Medication ?Instructions ?Recorded apixaban 5 mg tablet (Eliquis) 5 mg PO BID #60 tabs 06/04/22 ammonium lactate 12 % lotion 1 appl topical BID #400 grams 05/28/24 amoxicillin 875 mg-potassium 1 tab PO BID #14 tabs 05/28/24 clavulanate 125 mg tablet doxycycline monohydrate 100 mg 100 mg PO BID #14 caps 05/28/24 capsule Allergies Allergy/AdvReac Type Severity Reaction Status Date / Time codeine [Codeine] Allergy Mild ITCH Verified 11/09/24 10:44 lisinopril [Lisinopril] Allergy Unknown VOMITING Verified 11/09/24 10:44 Review of Systems 2 Review of Systems: Constitutional : No Fever, No Chills ENT/Mouth : No sore throat, No Rhinorrhea Eyes: No Eye Pain, No Swelling, No Redness Cardiovascular : No Chest Pain, No SOB Respiratory : No Cough, No Sputum Gastrointestinal : No Nausea, No Vomiting, No Diarrhea, No abdominal Pain Genitourinary : No Dysuria, No Hematuria Musculoskeletal : No joint pain, No Myalgias, No Joint Swelling Skin : No Skin Lesions, positive skin rash Neuro : No Weakness, No Numbness, No Headache Psych : No Anxiety, No Depression Heme/Lymph: No Bruising, No Bleeding,No Lymphadenopathy Endocrine : No Polyuria, No Polydipsia All other systems reviewed and are negative [facility] Past Medical History Attestation statement: The following information was validated with the patient. Source: old records reviewed Medical History Varicose veins of left lower extremity with inflammation Lymphedema Seroma Persistent atrial fibrillation Chronic acquired lymphedema Multiple sclerosis Afib Atrial fibrillation Hypertension Surgical History No pertinent past surgical history Family History Family History Father No problems noted. Mother No problems noted. Other No family history of coronary artery disease Social History Social History Household Members: Other Household Members Other:: patient has her own room in an assisted living facility Housing: Assisted Living Facility Do you presently have visiting nurse or other home services: No Patient Tobacco Use Status: Former Tobacco user Tobacco use type: Cigarette Cigarettes Per Day: 30 Years Smoked: 25 Smoked in Last 30 Days: No Second Hand Smoke Exposure: No Use of substances other than those prescribed or required for medical reasons: No Advance Directives: No Advance Directives Information Provided: Yes service: No Current occupational status: retired Physical Exam 2 Vital Signs: Vital Signs: Last Vital Signs Temp 97.6 F 11/10/24 09:43 Pulse 81 11/10/24 09:43 Resp 18 11/10/24 09:43 BP 130/59 L 11/10/24 09:43 Pulse Ox 98 11/10/24 09:43 O2 Del Method Room Air 11/10/24 09:43 BMI result Body Mass Index 50.5 Appearance: Alert. Oriented X3. No acute distress. Eyes: Pupils equal, round and reactive to light. ENT: Pharynx normal. atraumatic Neck: Normal inspection. Neck supple. CVS: Normal heart rate and rhythm. Pulses normal. Respiratory: No respiratory distress. Breath sounds normal. Abdomen: Soft and nontender. Back: atraumatic no midline ttp Skin: Skin warm and dry. Normal skin color. chronic venous stasis with wheeping areas on both legs L > R Extremities: lymphedema Neuro: Oriented X 3. No motor deficit. No sensory deficit. CN2-12 intact Course Course Course Narrative: acute STR placement per CM - likely tomorrow 349pm. 11/10/2024 Sharon Rodriguez PA-C 10:06 ---> Observation care revealed the the patient does not meet medical necessity for hospitalization. Patient declined short term rehab and instead requested to go home with VNA services. Final disposition discussed with the patient. Patient completed observation care at 10:06 on 11/10/2024, total time spent in observation care was 22 hours and 44 minutes. Medications Administered Generic Name Dose Route Start Last Admin Trade Name Freq PRN Reason Stop Dose Admin Acetaminophen 975 mg 11/10/24 02:11 11/10/24 06:09 Acetaminophen 325 Mg Tablet PO 975 mg Q6H PRN Administration Pain, Moderate(Pain Scale 4-6) Cephalexin HCl 500 mg 11/09/24 13:00 11/10/24 09:40 Cephalexin 500 Mg Capsule PO 500 mg QID TONG Administration Discontinued Medications Generic Name Dose Route Start Last Admin Trade Name Freq PRN Reason Stop Dose Admin Acetaminophen 975 mg 11/09/24 20:21 11/09/24 20:28 Acetaminophen 325 Mg Tablet PO 11/09/24 20:22 975 mg ONCE STA Administration Potassium Chloride 40 meq 11/09/24 11:22 11/09/24 11:50 Potassium Chloride Er 20 Meq Tab.Er.Prt PO 11/09/24 11:23 40 meq ONCE ONE Administration Medical Decision Making Medical Decision Making MDM Narrative: 69 yo female with PMH of afib on eliquis, HTN, lymphema and chronic venous stasis wounds, here with c/o knee giving out and she fell on her buttocks no head strike and no LE pain she does note chronic wounds that she has to manage on her own. 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 potassium improved 11/09/24 10:47 11/09/24 14:16 Labs: Lab Results 11/09/24 11/09/24 Range/Units 10:47 14:16 WBC 14.2 H (4.8-10.8) X10*3/uL RBC 4.35 (4.20-5.50) X10*6/uL Hgb 11.8 L (12.0-16.0) g/dl Hct 37.0 (37.0-47.0) % MCV 85.1 (80.0-98.0) fL MCH 27.1 (27.0-33.0) pg MCHC 31.9 (31.0-35.0) g/dl RDW 15.6 (11.0-16.0) % Plt Count 402 H (160-400) X10*3/uL MPV 10.2 (9.4-12.3) fL Immature Gran % (Auto) 0.6 H (0.0-0.4) % Neut % (Auto) 79.9 H (45-73) % Lymph % (Auto) 7.2 L (20-40) % Angelina % (Auto) 10.8 (2-11) % Eos % (Auto) 0.9 (0-4) % Baso % (Auto) 0.6 (0-2) % Lymph # (Auto) 1.0 L (1.2-4.9) X10*3/uL Angelina # (Auto) 1.5 H (0.1-1.2) X10*3/uL Eos # (Auto) 0.1 (0.0-0.4) X10*3/uL Baso # (Auto) 0.1 (0.0-0.2) X10*3/uL Abs Immat Gran (auto) 0.08 H (0.00-0.03) X10*3/uL Absolute Neuts (auto) 11.3 H (2.0-8.3) x10*3/uL Absolute Nucleated RBC 0.000 (0.0-0.012) X10*3/uL Nucleated RBC % (auto) 0.0 (0.0-0.2) /100WBC Smear Tech's Comments VERIFIED PT 21.6 H D (10.9-12.4) SEC INR 1.9 H (0.9-1.1) Sodium 135 (135-145) mmol/L Potassium 2.9 L* D 3.6 D (3.3-5.1) mmol/L Chloride 95 L (96-108) mmol/L Carbon Dioxide 29 (22-29) mmol/L Anion Gap 14 (12-20) BUN 13 (9-16) mg/dL Creatinine 0.76 (0.5-1.4) mg/dL Estim Creat Clear Calc 97.7 Estimated GFR > 60 Random Glucose 105 (60-115) mg/dL Calcium 9.4 D (8.4-10.2) mg/dL Troponin I High Sens 3.1 (<3.5-17.0) ng/L B-Natriuretic Peptide 86 (<100) pg/mL Independent Interpretation I performed an independent interpretation of an: EKG Interpretation: Rate: 80 Rhythm: afib Leland: normal Normal QRS complex. ST T wave : nonspecific ST T wave changes lateral leads qTC: 493 prior studies: no acute ischemia The study has been interpreted contemporaneously by me. . Independent Historian Clinical information obtained from an independent historian. History obtained from or confirmed by: EMS External Record Review External record reviewed: Inpatient record and Outpatient record Tests considered The following testing was considered but not selected: imaging but on exam she denies any injuries or complaints. Prescription Management I considered prescription management with: Other Discharge Plan Discharge Clinical Impression: Acute hypokalemia, Acute bilateral venous stasis dermatitis Patient Disposition: Home, Self-Care Instructions: Hypokalemia (ED), Lymphedema (ED) Additional Instructions: Follow up with your primary care provider. Return to the emergency department immediately if your symptoms worsen or if you develop any numbness, tingling, dizziness, shortness of breath, difficulty breathing, chest pain, blurry vision, loss of vision, nausea, vomiting, abdominal pain, fever, chills, back pain, or any other complaints. Please see the information below about our Patient Portal. If you are not yet enrolled in the [facility] Patient Portal, you will receive an enrollment email invitation following your visit to any [facility]/formerly [facility] setting. You may also self-enroll in the Patient Portal by visiting our website: [email or web address] The following information is required to access the Patient Portal: - Your [facility] Medical Record Number - Your personal home email address (must match what is in your electronic medical record, Registration staff can assist with this) - Name - Date of Capabilities of the Patient Portal: - Message some providers - View upcoming appointments - Access your health summary, medical history, and visit history - View current conditions and allergies - View procedure and lab results - View your medications, including guidelines, side effects, and precautions - Complete pre-appointment questionnaires requested by your provider - Ready summary reports of your office visits and procedures To access the Patient Portal Mobile [employer], follow these directions: - Search [employer] in the [employer] Store or [employer] Store - Download the [facility] - Search for [facility] - Enter your login/password Prescriptions: No Action tramadol 50 mg tablet 1 tab PO Q6H PRN (Reason: Pain) acetaminophen 325 mg Tablet 975 mg PO TID PRN (Reason: Pain) Eliquis 5 mg Tablet 5 mg PO BID Qty: 60 0RF amlodipine 5 mg tablet 5 mg PO DAILY citalopram 20 mg tablet 20 mg PO DAILY famotidine 20 mg tablet 20 mg PO DAILY furosemide 40 mg Tablet 40 mg PO DAILY sennosides [senna] 8.6 mg Tablet 8.6 mg PO DAILY aspirin 81 mg Tablet,Delayed Release (Dr/Ec) 81 mg PO DAILY polyethylene glycol 3350 [Miralax] 17 gram/dose Powder 17 g PO DAILY Rx Instructions: mix with 6-8oz of water Artificial Tears (PF) Dropperette 1 drp OPHTHALMIC (EYE) BID atenolol 25 mg Tablet 25 mg PO DAILY doxycycline monohydrate 100 mg capsule 100 mg PO BID Qty: 14 0RF amoxicillin-pot clavulanate 875-125 mg tablet 1 tab PO BID Qty: 14 0RF ammonium lactate 12 % lotion 1 appl topical BID Qty: 400 1RF Rx Instructions: Lower extremities bilaterally digoxin 125 mcg (0.125 mg) tablet 0.125 mg PO DAILY tacrolimus 0.1 % ointment 1 appl topical BID PRN (Reason: Rash) Referrals: Harshal Thompson MD [Primary Care Provider] - Print Language: Yemeni
[2024-11-09 11:14] LABS: SLIDE REVIEW VERIFIED
[2024-11-09 11:15] LABS: Anion Gap 14 (12-20); Blood Urea Nitrogen 13 mg/dL (9-16); Calcium 9.4 mg/dL (8.4-10.2); Carbon Dioxide 29 mmol/L (22-29); Chloride 95 mmol/L (96-108); Creatinine Clr Calc Pharmacy 97.7; Estimated Glomerular Filt Rate > 60; Glucose Random 105 mg/dL (60-115); Potassium 2.9 mmol/L (3.3-5.1); Sodium 135 mmol/L (135-145)
[2024-11-09 11:22] LABS: B Type Natriuretic Peptide 86 pg/mL (<100)
--- NOTE | 2024-11-09 11:25 | ECG_ITS ---
Test Reason : hypokalemia Blood Pressure : */* mmHG Vent. Rate : 80 BPM Atrial Rate : * BPM P-R Int : * ms QRS Dur : 90 ms QT Int : 428 ms P-R-T Axes : * 64 13 degrees QTcB Int : 493 ms Atrial fibrillation Septal infarct , age undetermined Abnormal ECG When compared with ECG of 26-May-2024 17:23, No significant change was found Referred By: Wendy Crespo Electronically Signed By: KIYA COURTNEY MD
[2024-11-09 11:30] LABS: Troponin-I High Sensitivity 3.1 ng/L (<3.5-17.0)
--- NOTE | 2024-11-09 11:33 | PC.NURSE ---
Purewick in place, connected to wall suction with urine noted in cannister. Patient is noted to have weeping left lower leg, states that this is her baseline, but reports pain and that someone was supposed to follow up with her today regarding this wound. Patient ambulates with a walker at baseline and fell after her right knee buckled under me today, which happens all the time . Plan for PT/CM. EKG to be obtained due to low potassium. Oral Potassium to be given with repeat Potassium level to be drawn at 14:00, per Dr. Crespo. Care ongoing by this RN.
[2024-11-09] MEDS: Potassium Chloride ER 20 MEQ TAB.ER.PRT 40 MEQ PO (11:50)
--- NOTE | 2024-11-09 12:56 | PC.NURSE ---
Cardiac diet entered, okayed by Dr. Crespo. Contacted inpatient kitchen at extension [phone]. Cardiac tray to be brought to ED for consumption. Pending PT/CM.
[2024-11-09] MEDS: cephALEXin 500 MG CAPSULE PO ×3 (13:04→20:28)
--- NOTE | 2024-11-09 13:05 | MHC.CM.PN ---
Addendum entered by Sima Nix 11/09/24 15:45: PT evaluated pt and recommended STR. This CM met with pt to discuss PT recs, pt is agreeable with going to STR. Pt has no STR facility preference, referrals placed, awaiting bed offer. Original Note: CM consult for pt with a fall at [facility], and in need of wound care. This CM attempted to meet with pt, pt soundly asleep, unable to engage in conversation, will attempt to meet with pt again. This CM placed a call to pts nurse Catia at [facility], per Catia, the pt was recently at [facility], then went to STR at [facility] [place], pt returned to the [facility] last week. Per Catia, the pt lives in a rest home at their [facility], has minimal to no family support, is active with [facility], but they only provide wound care 1x weekly. Catia states she thinks pt may need STR again. Referral placed to [facility], they confirmed they are active with the pt for SN/PT/OT, this CM asked if they would be able to provide additional visits to provide more wound care, they state at most they can see her 3x/weekly for wound care, but its not guaranteed. Discussed with ED provider, and PT eval is pending to assist with discharge disposition.
--- OUTSIDE RECORDS SUMMARY | 2024-11-09 13:12 | XMS_ITS ---
Author Organization [facility] on Care Team Providers Care Board Machine Set Up Operator Name Role Phone Sima Haji Unavailable Unavailable Paul Torres Unavailable Unavailable Nidhi Moscoso Unavailable Unavailable Vy Holland Unavailable Unavailable Sofy Stewart Unavailable Unavailable Marianne Daniel Unavailable Unavailable Phong Mendoza Unavailable Unavailable Rena Lutz Unavailable Unavailable Allergies and adverse reactions Code CodeSystem Substance Reaction Severity StartDate Concern Status 86423 RXNORM Lisinopril Mild 06/08/2020 active 2670 RXNORM Codeine Mild 06/08/2020 active Care Team Name Role Address Phone Organization Dates Nidhi Moscoso PCP [address] [place] [address], [address], [place] (Office): : [facility] 10/03/2024 - 11/05/2024 Sima Haji Attending Physician [address] [place], [address], [place] (Office): [facility] 10/03/2024 - 11/05/2024 Paul Torres Attending Physician [address] [place], [address], [place]Office[place] : : [facility] 10/03/2024 - 11/05/2024 Vy Holland Attending Physician [address] [place], [address], [place] (Office): [facility] 10/03/2024 - 11/05/2024 Sofy Stewart Attending Physician [address] [place], [address], [place] (Office): [facility] 10/03/2024 - 11/05/2024 Marianne Daniel Attending Physician [address] [place], [address], [place]Office): : [facility] 10/03/2024 - 11/05/2024 Phong Mendoza Attending Physician [address] [place] [address], [address], [place] (Office): [facility] 10/03/2024 - 11/05/2024 Rena Lutz Attending Physician [address] [place], [address], [place] (Office): : [facility] 10/03/2024 - 11/05/2024 Goals Section Description Status Target Date Advanced Directives will be honored and reevalua samia as needed Active 01/02/2025 Minimize risk for falls Active 01/03/20 25 Minimize risk for injury related to falls Active 01/02/2025 Skin will remain free of yvon akdown within limits of disease process Active 01/02/2025 Skin will remain in tact, fr ee from erythema, breakdown, excoriation or bruising until next review Active 01/02/2025 Will be discharged to [facility] or other appropriate placement when clinical and rehabilitation goals are met Active 025 Will decrease/minimize skin breakdown risks Acti ve 01/02/2025 Will develop no new areas of skin breakdown Acti ve 01/02/2025 Will express feelings of adj ustment to new surroundings by next review Active 01/02/2025 Will express that pain management is within acce ptable limits Active 01/02/2025 Will have medication dose reduction/elimination as indicated Active 01/02/2025 Will heal within the limits of the disease proce ss Active 01/02/2025 Will heal without complication Active 0 01/02/2025 Will maintain existing ADL self performance Acti ve 01/02/2025 Will maintain weight < 278# through next review Active 01/02/2025 Will not develop complications related to decrea sed mobility Active 01/02/2025 Will receive assistance necessary to meet ADL ne eds Active 01/02/2025 Will reduce episodes of util ization of breakthrough pain medication Active 01/02/2025 Will show continued signs of healing Active 01/02/2025 Will show improvement in mood/behavior Active 01/02/2025 Will show no side effects of medication use Acti ve 01/02/2025 Will show no signs of hallucinations or delusion al thinking Active 01/02/2025 Will show no signs of infection Active 01/02/2025 Will tolerate diet, texture and fluid consistency without signs and symptoms of aspiration Active 01/02/2025 Immunizations Immunization Status Vaccine Details Vaccine Code CodeSystem Date Notes Influenza completed Influenza, split virus, trivalent, injectable, contains preservative lotNumber: [id number] expiry: 01/25/2022 Mfg: [employer] Flucelvax Given 0.5 ml Left Deltoid intradermally 141 CVX created date: 05/12/2021 consent date: 05/12/2021 administer ed date: 05/12/2021 Educated by Asmita Rice on 05/12/2021 Influenza completed Influenza, split virus, trivalent, injectable, contains preservative Given 0.5 ml Right Deltoid intramuscularly 141 CVX created date: 06/09/2020 administer ed date: 05/26/2020 given at [facility] TB 2 Step Mantoux Skin Test completed tuberculin skin test; unspecified formulation lotNumber: [id number] expiry: 04/16/2022 Mfg: [employer] Given 0.1 ml Right Forearm intradermally Step 1 of Multi-step 98 CVX created date: 08/04/2020 consent date: 08/04/2020 administer ed date: 08/04/2020 SARS-COV-2 (COVID-19) completed SARS-COV-2 (COVID-19) vaccine, mRNA, spike protein, LNP, preservative free, 30 mcg/0.3mL dose lotNumber: [id number] Mfg: [employer] Given 0.3 ml Left Deltoid intramuscularly Step 1 of Multi-step 208 CVX created date: 05/24/2021 consent date: 05/24/2021 administer ed date: 05/24/2021 Booster Dose SARS-COV-2 (COVID-19) completed SARS-COV-2 (COVID-19) vaccine, mRNA, spike protein, LNP, preservative free, meagan-sucrose, 30 mcg/0.3 mL dose lotNumber: [id number] Mfg: [employer] Given 0.3 ml Left Deltoid intramuscularly Step 2 of Multi-step with next step required 309 CVX created date: 08/17/2020 consent date: 08/17/2020 administer ed date: 08/16/2020 SARS-COV-2 (COVID-19) completed SARS-COV-2 (COVID-19) vaccine, mRNA, spike protein, LNP, preservative free, 30 mcg/0.3mL dose lotNumber: [id number] expiry: 10/26/2020 Mfg: [employer] Given 0.3 ml Left Deltoid intramuscularly Step 1 of Multi-step with next step required 208 CVX created date: 07/26/2020 consent date: 07/26/2020 administer ed date: 07/26/2020 Educated by Vince Meyer RN on 07/26/2020 Administere d by [facility] pharmacy staff Prevnar 20 Pneumococcal conjugate (PCV20) cancelled Pneumococcal conjugate vaccine 20-valent (PCV20), polysaccharide [id number] conjugate, adjuvant, preservative free 216 CVX created date: 12/20/2023 consent date: 12/20/2023 SARS-COV-2 (COVID-19 BOOSTER) completed SARS-COV-2 (COVID-19) vaccine, mRNA, spike protein, LNP, preservative free, meagan-sucrose, 30 mcg/0.3 mL dose Mfg: [employer] COMIRNATY 309 CVX created date: 12/20/2023 administer ed date: 06/19/2023 Verified in [facility]. SARS-COV-2 (COVID-19 BOOSTER) completed SARS-COV-2 (COVID-19) vaccine, mRNA, spike protein, LNP, bivalent, preservative free, 30 mcg/0.3 mL dose, meagan-sucrose formulation Mfg: [employer] Bilvalent Booster 300 CVX created date: 12/20/2023 administer ed date: 10/04/2022 Verified in [facility]. SARS-COV-2 (COVID-19 BOOSTER) completed SARS-COV-2 (COVID-19) vaccine, mRNA, spike protein, LNP, preservative free, 30 mcg/0.3mL dose Mfg: Pfizer Booster # 1 208 CVX created date: 12/20/2023 administer ed date: 05/24/2021 Verified in [facility]. RSV, recombinant, protein subunit RSVpreF, adjuvant rec cancelled Respiratory syncytial virus (RSV), vaccine, recombinant, protein subunit RSV prefusion F, adjuvant reconstituted, 0.5 mL, preservative free 303 CVX created date: 12/20/2023 consent date: 12/20/2023 influenza, unspecified formulation completed influenza virus vaccine, unspecified formulation 88 CVX created date: 12/20/2023 administer ed date: 06/19/2023 Verified in [facility]. Td(adult) unspecified formulation completed Td(adult) unspecified formulation 139 CVX created date: 12/20/2023 administer ed date: 08/01/2016 Verified in [facility]. Medications Section Medication Name Status Code CodeSystem Dose Route Frequency Admin Type Sig Text Start Date End Date Fleet Enema Enema 7-19 GM/118ML aborted 582292 RXNORM 1 unit Rectal as needed PRN Insert 1 unit rectal ly every 24 hours as needed for Consti pation Use only if Bisaco dyl Suppos itory is ineffe ctive 10/28 Acetaminophen Tablet 325 MG aborted 462860 RXNORM 2 tablet Oral as needed PRN Give 2 tablet by mouth every 6 hours as needed for Pain Do not exceed 3 grams in 24 hours. T otal 650 mg AND Give 2 tablet by mouth every 6 hours as needed for Elevat ed temp >101 Do not exceed 3 grams in 24 hours. T otal 650 mg 10/20 608522 RXNORM 2 tablet Oral as needed PRN Give 2 tablet by mouth every 6 hours as needed for Pain Do not exceed 3 grams in 24 hours. T otal 650 mg AND Give 2 tablet by mouth every 6 hours as needed for Elevat ed temp >101 Do not exceed 3 grams in 24 hours. T otal 650 mg 10/20 Senna Tablet 8.6 MG active 600308 RXNORM 1 tablet Oral as needed PRN Give 1 tablet by mouth every 24 hours as needed for Consti pation 2024 - Famotidine Oral Tablet 20 MG active 441316 RXNORM 20 mg Oral in the morning Routine Give 20 mg by mouth in the mornin g for gerd 2024 - Polyethylene Glycol Powder active 17 gram Oral in the morning Routine Give 17 gram by mouth in the mornin g for consti pation 2024 - Eliquis Oral Tablet 5 MG active 667897 7 RXNORM 1 tablet Oral two times a day Routine Give 1 tablet by mouth two times a day for afib 2024 - Aspirin Oral Tablet active 81 mg Oral in the morning Routine Give 81 mg by mouth in the mornin g for blood thinne r 2024 - Digox Oral Tablet 125 MCG active 634910 3 RXNORM 1 tablet Oral in the morning Routine Give 1 tablet by mouth in the mornin g for afib 2024 - Lasix Oral Tablet 40 MG active RXNORM 40 mg Oral in the morning Routine Give 40 mg by mouth in the mornin g for fluid retent ion 2024 - Nystatin External Powder 901599 UNIT/GM active 712090 RXNORM n/a n/a Topical as needed PRN Apply to affect ed area topica lly every 12 hours as needed for fungal area 2024 - hydroCHLOROth iazide Oral Tablet 25 MG active 729062 RXNORM 1 tablet Oral in the morning Routine Give 1 tablet by mouth in the mornin g for high blood pressu re 2024 - Tacrolimus External Ointment 0.1 % active 179785 RXNORM n/a n/a Topical as needed PRN Apply to eyelid s and ears topica lly every 12 hours as needed for psoria sis 2024 - Acetaminophen Oral Tablet active 975 mg Oral three times a day Routine Give 975 mg by mouth three times a day for pain 2024 - Artificial Tears Ophthalmic Solution active 1 drop Ophthal marquez two times a day Routine Instil l 1 drop in both eyes two times a day for dry eyes 2024 - Ammonium Lactate External Lotion 12 % aborted 19721228 RXNORM n/a n/a Topical two times a day Routine Apply to bilat leg topica lly two times a day for skin disord er 10/22 Atenolol Oral Tablet 25 MG active 772825 RXNORM 25 mg Oral in the morning Routine Give 25 mg by mouth in the mornin g for afib 2024 - Citalopram Hydrobromide Oral Tablet 20 MG active 20030126 RXNORM 1 tablet Oral in the morning Routine Give 1 tablet by mouth in the mornin g for mood stabil ity 2024 - traMADol HCl Oral Tablet 50 MG active 241858 RXNORM 1 tablet Oral as needed PRN Give 1 tablet by mouth every 6 hours as needed for pain 2024 - Bisacodyl Rectal Suppository aborted 1 applic ation Rectal as needed PRN Insert 1 applic ation rectal ly every 24 hours as needed for Consti pation Use if PRN Senna is Ineffe ctive 10/28 Mental Status Section Date Assessment Total Score Description 10/09/2024 BIMS 14 cognitively int act CAM 0 No delirium ind icated 07/24/2024 BIMS 14 cognitively int act CAM 0 No delirium ind icated Problems Problem # Description Date of onset Resolved Date Code CodeSystem Concern Status 1 ARTHROPATHIC PSORIASIS, UNSPECIFIED [address] active 2 DYSPHAGIA, UNSPECIFIED [address] active 3 MUSCLE WEAKNESS (GENERALIZED) [address] active 4 UNSPECIFIED SYMPTOMS AND SIGNS INVOLVING COGNITIVE FUNCTIONS AND AWARENESS [address] active 5 UNSTEADINESS ON FEET [address] active 6 LOCAL INFECTION OF THE SKIN AND SUBCUTANEOUS TISSUE, UNSPECIFIED 024 08/29/[address] completed 7 CELLULITIS OF LEFT LOWER LIMB [address] active 8 CELLULITIS OF RIGHT LOWER LIMB 024 08/29/[address] completed 9 ESSENTIAL (PRIMARY) HYPERTENSION [address] active 10 GASTRO-ESOPHAGEAL REFLUX DISEASE WITHOUT ESOPHAGITIS [address] active 11 HIDRADENITIS SUPPURATIVA [address] active 12 ATTENTION-DEFICIT HYPERACTIVITY DISORDER, UNSPECIFIED TYPE [address] active 13 CELLULITIS OF LEFT LOWER LIMB 024 06/29/[address] completed 14 CELLULITIS OF RIGHT LOWER LIMB 024 06/29/[address] completed 15 DYSPHAGIA, UNSPECIFIED 024 06/29/[address] completed 16 LOCAL INFECTION OF THE SKIN AND SUBCUTANEOUS TISSUE, UNSPECIFIED 024 06/29/[address] completed 17 LOCALIZED EDEMA 024 06/29/[address] completed 18 LYMPHEDEMA, NOT ELSEWHERE CLASSIFIED [address] active 19 MILD COGNITIVE IMPAIRMENT OF UNCERTAIN OR UNKNOWN ETIOLOGY [address] active 20 MORBID (SEVERE) OBESITY DUE TO EXCESS CALORIES [address] active 21 MULTIPLE SCLEROSIS [address] active 22 MUSCLE WEAKNESS (GENERALIZED) 024 06/29/[address] completed 23 OTHER ABNORMALITIES OF GAIT AND MOBILITY 024 06/29/[address] completed 24 OTHER ASTHMA [address] active 25 RHEUMATOID ARTHRITIS, UNSPECIFIED [address] active 26 SEPSIS, UNSPECIFIED ORGANISM 024 06/29/[address] completed 27 SPINAL STENOSIS, LUMBAR REGION WITHOUT NEUROGENIC CLAUDICATION [address] active 28 UNSPECIFIED ATRIAL FIBRILLATION [address] active 29 UNSTEADINESS ON FEET 024 06/29/[address] completed 30 ACUTE PULMONARY EDEMA 024 01/13/[address] completed 31 DIFFICULTY IN WALKING, NOT ELSEWHERE CLASSIFIED 024 01/13/[address] completed 32 DYSPHAGIA, UNSPECIFIED 024 01/13/[address] completed 33 GENERALIZED EDEMA 12/19/[address] completed 34 MUSCLE WEAKNESS (GENERALIZED) 024 01/13/[address] completed 35 REPEATED FALLS 024 01/13/[address] completed 36 UNSTEADINESS ON FEET 024 01/13/[address] completed 37 LOCALIZED EDEMA 024 01/13/[address] completed 38 ATTENTION AND CONCENTRATION DEFICIT 020 01/13/[address] completed 39 ESSENTIAL (PRIMARY) HYPERTENSION 01/13/[address] completed 40 FRACTURE OF LEFT SHOULDER GIRDLE, PART UNSPECIFIED, SEQUELA 09/22/[address] completed 41 MULTIPLE SCLEROSIS 01/13/[address] completed 42 SPINAL STENOSIS, LUMBAR REGION WITHOUT NEUROGENIC CLAUDICATION 01/13/[address] completed 43 DISPLACED FRACTURE OF BODY OF SCAPULA, LEFT SHOULDER, SUBSEQUENT ENCOUNTER FOR FRACTURE WITH ROUTINE HEALING 07/24/[address] completed 44 MORBID (SEVERE) OBESITY DUE TO EXCESS CALORIES 01/13/[address] completed 45 MULTIPLE SCLEROSIS 07/24/[address] completed 46 OTHER ASTHMA 01/13/[address] completed 47 OTHER POLYOSTEOARTHRITIS 01/13/[address] completed 48 OTHER PSORIATIC ARTHROPATHY 01/13/[address] completed 49 UNSPECIFIED ATRIAL FIBRILLATION 01/13/[address] completed Reason for Referral No Reasons for Referral Entered Social History Social History Observation Description Start Date End Date Code Code System Current Smoking Status Tobacco smoking consumption unknown 554266400 SNOMED CT Sex Assigned At Female 1955 24524-3 [facility] Vital Signs Code Code System Vitals Name Values and Units Timing Information 84129-0 [facility] Pain Level Value=0.0 11/05/2024 9279-1 [facility] Respiratory Rate Value=18.0 Units=/m in 11/04/2024 8462-4 [facility] Blood Pressure-Diastolic Value=81 Un its=mmHg 11/04/2024 8480-6 [facility] Blood Pressure-Systolic Crocm=712 Un its=mmHg 11/04/2024 8310-5 [facility] Body Temperature Value=97.9 Units=?? F 11/04/2024 8867-4 [facility] Heart rate Value=78.0 Units=/min 03/2025 91431-2 [facility] O2 % BldC Oximetry Value=98.0 Units= % 11/04/2024 54726-8 [facility] Weight Hbnqn=569.0 Units=Lbs 03/2025 8302-2 [facility] Height Value=63.0 Units=Inches 07/23/2024
[2024-11-09 14:32] LABS: Potassium 3.6 mmol/L (3.3-5.1)
--- NOTE | 2024-11-09 14:44 | PC.NURSE ---
Patient voided in bed. Refused bedpan. Bariatric commode at bedside. Encouraged to use call delacruz, within reach.
--- NOTE | 2024-11-09 19:23 | MHC.CM.ED ---
CM met with patient. She is A&Ox3. Lives in [place]. She states she in independent with ADL's. Self showers. Ambulates with rollator walker. HCP is her sister, Edita Cisneros ([phone]). It is not on file. According to medical record, patient is active with [facility]. 4 referrals made by previous CM. 2 bed offers, [facility] and [facility]. Pt would like additional referrals made, as she does not want to go to either facility. Additional 24 referrals made within 25 miles. CM will follow for discharge planning.
[2024-11-09] MEDS: Acetaminophen 325 MG TABLET 975 MG PO (20:28)
[2024-11-10] VITALS (11 sets, daily range): BP systolic 103–144; BP diastolic 47–69; PULSE 76–88; RESP 16–20; TEMP 36.3–36.9; O2SAT 75–100; BMI 48.3
--- NOTE | 2024-11-10 00:15 | PC.NURSE ---
Patient appears to be in no apparent distress, sleeping in a hospital bed, respirations even and unlabored, purewick in place, call delacruz in patient's reach.
[2024-11-10] MEDS: Acetaminophen 325 MG TABLET 975 MG PO ×2 (06:09→16:14)
--- NOTE | 2024-11-10 07:52 | PC.NURSE ---
pt allowed to sleep. unlabored resp.
--- NOTE | 2024-11-10 09:08 | MHC.CM.ED ---
THIS SEMICONDUCTOR MANUFACTURING TECHNICIAN MET WITH PATIENT TO DISCUSS SNF OFFERS. PATIENT REFUSES ALL OFFERS AT THIS TIME, DESPITE EDUCATING ON BENEFITS OF P.T. AND WOUND CARE SHE IS ALSO AWARE THAT BECAUSE SHE HAS NOT HAD A QUALIFYING HOSPITAL STAY WITHIN THE LAST 30 DAYS, SHE WOULD ONLY BE ABLE TO TRANSFER TO A SNF ON HER MEDICAID BENEFIT. PATIENT STATES I AM SET ON GOING HOME TODAY RN AWARE OF CONVERSATION.
[2024-11-10] MEDS: cephALEXin 500 MG CAPSULE PO ×4 (09:40→20:12)
--- NOTE | 2024-11-10 09:52 | MHC.CM.ED ---
RN and ED provider aware that patient is refusing rehab placement and plans to go home. [facility]
--- NOTE | 2024-11-10 10:33 | MHC.CM.ED ---
CALL TO SISTER, CAMERON, AT [phone], FOR TRANSPORT HOME (PER PATIENT REQUEST) VOICEMAIL LEFT FOR CAMERON.
--- NOTE | 2024-11-10 12:05 | PC.NURSE ---
Pt assisted OOB for trial ambulation. Has no ability to move BLE from lying to sitting or vice versa w/o assist. States she never gets into a bed and only uses recliner at home. SaO2 dropped to 87% whilte ambulating with walker. Once upright she is stable with walker and not SOB. WIll discuss plan of care with Provider again. Pt continues to insist that she go home. Legs are weeping yellow liquid. pericare and drainage cleansed.
--- NOTE | 2024-11-10 12:47 | ECG_ITS ---
Test Reason : hypoxia Blood Pressure : */* mmHG Vent. Rate : 71 BPM Atrial Rate : * BPM P-R Int : * ms QRS Dur : 92 ms QT Int : 448 ms P-R-T Axes : * 10 8 degrees QTcB Int : 486 ms Atrial fibrillation with a competing junctional pacemaker Abnormal ECG When compared with ECG of 09-Nov-2024 11:32, No significant change was found Referred By: Sharon Rodriguez Electronically Signed By: KIYA COURTNEY MD
--- NOTE | 2024-11-10 13:07 | PC.NURSE ---
Assumed care of this patient at this time. Patient previously offered acute rehab/ [facility]NA at home, refused wanted to leave AMA. Provider Sharon spoke to patient, patient confirmed w/ provider she wanted to go home. This RN went into patient's room to have patient sign AMA form. Explained to patient that provider would like her to go to rehab/ continue to get medical txt because oxygenation is low and patient does not move around well without assistance. Patient then stated that due to not having a ride home and wanting to feel better she would now be willing to stay. Sharon made aware. Labs/EKG/CT scan ordered.
--- NOTE | 2024-11-10 13:07 | MHC.CM.ED ---
[facility] aware that patient is still here and with provider discussing plan of care.
[2024-11-10 13:35] LABS: MANUAL DIFF FLAG NO
[2024-11-10 13:37] LABS: Venous Blood Gas Refer to POC result
[2024-11-10 13:39] LABS: Basophils Absolute Auto 0.1 X10*3/uL (0.0-0.2); Basophils Percent Auto 0.8 % (0-2); Eosinophils Absolute Auto 0.2 X10*3/uL (0.0-0.4); Eosinophils Percent Auto 2.4 % (0-4); Hematocrit 35.5 % (37.0-47.0); Hemoglobin 11.2 g/dl (12.0-16.0); Imm Gran Abs Auto 0.07 X10*3/uL (0.00-0.03); Imm Gran Pct Auto 0.8 % (0.0-0.4); Lymphocytes Percent Auto 11.2 % (20-40); Mean Corpuscular HGB Conc 31.5 g/dl (31.0-35.0); Mean Corpuscular Hemoglobin 27.1 pg (27.0-33.0); Mean Corpuscular Volume 85.7 fL (80.0-98.0); Mean Platelet Volume 10.1 fL (9.4-12.3); Monocytes Percent Auto 10.5 % (2-11); Neutrophils Absolute Auto 6.9 x10*3/uL (2.0-8.3); Neutrophils Percent Auto 74.3 % (45-73); Platelet Count 374 X10*3/uL (160-400); Red Blood Count 4.14 X10*6/uL (4.20-5.50); Red Cell Distribution Width 15.9 % (11.0-16.0); White Blood Count 9.3 X10*3/uL (4.8-10.8)
[2024-11-10 13:41] LABS: VBG Base Excess 8.6 mmol/L; VBG HCO3 33 mmol/L (22-26); VBG pCO2 48 mmHg; VBG pH 7.45 (7.32-7.43); VBG pO2 38 mmHg
[2024-11-10 13:55] LABS: Alanine Aminotransferase 9 U/L (0-31); Albumin Level 3.4 g/dL (3.5-5.0); Anion Gap 11 (12-20); Aspartate Amino Transferase 21 U/L (5-31); Bilirubin Total 0.8 mg/dL (0.0-1.0); Blood Urea Nitrogen 10 mg/dL (9-16); Carbon Dioxide 30 mmol/L (22-29); Chloride 98 mmol/L (96-108); Creatinine Clr Calc Pharmacy 121.7; Estimated Glomerular Filt Rate > 60; Glucose Random 99 mg/dL (60-115); Potassium 3.2 mmol/L (3.3-5.1); Sodium 136 mmol/L (135-145); Total Protein 6.4 g/dL (6.5-8.0)
--- NOTE | 2024-11-10 13:58 | PC.NURSE ---
Pt repositioned in bed, IV line/labs obtained, pics of patient's leg wounds sent to provider Sharon for chart. Pt curently waiting for CT scan.
[2024-11-10 14:04] LABS: Troponin-I High Sensitivity 3.2 ng/L (<3.5-17.0)
[2024-11-10 14:27] LABS: Influenza A PCR NEGATIVE (Negative); Influenza B PCR NEGATIVE (Negative); Resp Syncy Virus RNA Qual PCR NEGATIVE (Negative); SARS COV2 PCR INHOUSE NEGATIVE (Negative)
--- NOTE | 2024-11-10 14:29 | MHC.CM.ED ---
CALL FROM AIME GROVES DIRECTOR FOR [facility]. GERMAIN CAN BE REACHED AT [phone] IF ANY HELP OR INFORMATION IS NEEDED. PER CONVERSATION, PATIENT IS INDEPENDENT WITH A WALKER AT BASELINE. GERMAIN IS WILLING TO COME TO [facility] IF NEEDED TO DISCUSS DC PLANS ONCE PATIENT IS READY.
[2024-11-10] MEDS: iohexoL 350 MG/ML 100 ML INFUS..BTL IV (14:53)
--- NOTE | 2024-11-10 15:43 | PHA.MEDREC ---
Pharmacy Consult ? Medication Reconciliation Pharmacy has completed the medication reconciliation.
--- NOTE | 2024-11-10 16:12 | P.HPHOSP_ITS ---
History of Present Illness Date of Service: 11/10/24 Chief Complaint: SOB 69 yo female with PMH of afib on eliquis, HTN, lymphema and chronic venous stasis wounds, here with c/o her R knee chronically giving out and she landed on her buttocks she was on the ground for only 30 minutes she did not hit her head and just sat on her buttocks. She denies any trauma she has no pain she states the assisted living facility made her get checked out. She has chronic leg wounds and weeping and her [facility] only has VNA once a week. She denies fevers, change in the wounds. She has no other complaints. Patient noticed to be desaturating during sleep; ambulated by staff and found to have sats in the 70s with increased work of breathing. CT scan of the chest failed to demonstrate any acute abnormalities. She will be admitted for further workup of her shortness of breath Review of Systems 2 Review of Systems: Denies chest pain Denies shortness of breath Denies nausea vomiting diarrhea Denies fever chills PMFSH Medical History Varicose veins of left lower extremity with inflammation Lymphedema Seroma Persistent atrial fibrillation Chronic acquired lymphedema Multiple sclerosis Afib Atrial fibrillation Hypertension Family History Father No problems noted. Mother No problems noted. Other No family history of coronary artery disease Surgical History No pertinent past surgical history Social History Household Members: Other Household Members Other:: patient has her own room in an assisted living facility Housing: Assisted Living Facility Do you presently have visiting nurse or other home services: No Patient Tobacco Use Status: Former Tobacco user Tobacco use type: Cigarette Cigarettes Per Day: 30 Years Smoked: 25 Smoked in Last 30 Days: No Second Hand Smoke Exposure: No Use of substances other than those prescribed or required for medical reasons: No Advance Directives: No Advance Directives Information Provided: Yes service: No Current occupational status: retired Meds Allergies Allergy/AdvReac Type Severity Reaction Status Date / Time codeine [Codeine] Allergy Mild ITCH Verified 11/09/24 10:44 lisinopril [Lisinopril] Allergy Unknown VOMITING Verified 11/09/24 10:44 Active Medications: Current Medications Acetaminophen (Acetaminophen 325 Mg Tablet) 975 mg PO Q6H PRN PRN Reason: Pain, Moderate(Pain Scale 4-6) Last Admin: 11/10/24 06:09 Dose: 975 mg Acetaminophen (Acetaminophen 325 Mg Tablet) 650 mg PO TID [facility] Apixaban (Apixaban 5 Mg Tablet) 5 mg PO BID [facility] Aspirin (Aspirin Enteric Coated 81 Mg Tablet.Dr) 81 mg PO DAILY [facility] Atenolol (Atenolol 25 Mg Tablet) 25 mg PO DAILY [facility]; Protocol Calcium Carbonate (Calcium Carbonate 750 Mg Tab.Chew) 750 mg PO Q4H PRN PRN Reason: Heartburn Cephalexin HCl (Cephalexin 500 Mg Capsule) 500 mg PO QID [facility] Last Admin: 11/10/24 13:20 Dose: 500 mg Digoxin (Digoxin 0.125 Mg Tablet) 0.125 mg PO DAILY [facility]; Protocol Famotidine (Famotidine 20 Mg Tablet) 20 mg PO DAILY [facility] Furosemide (Furosemide 40 Mg Tablet) 40 mg PO DAILY [facility]; Protocol Hydrochlorothiazide (Hydrochlorothiazide 25 Mg Tablet) 25 mg PO DAILY [facility]; Protocol Magnesium Hydroxide (Milk Of Magnesia 30 Ml Oral.Susp) 30 ml PO DAILY PRN PRN Reason: Constipation Melatonin (Melatonin 3 Mg Tablet) 6 mg PO BEDTIME PRN PRN Reason: Insomnia Non-Formulary Medication (Citalopram) 20 mg PO DAILY [facility] Ondansetron HCl (Ondansetron Hcl 4 Mg/2 Ml Vial) 4 mg IVPUSH Q8H PRN PRN Reason: Nausea and Vomiting Oxycodone HCl (Oxycodone Hcl Immed Release 5 Mg Tablet) 5 mg PO Q6H PRN PRN Reason: Pain, Severe (Pain Scale 7-10) Polyethylene Glycol (Polyethylene Glycol 3350 17 Gm Powd.Pack) 17 gm PO DAILY [facility] Potassium Chloride (Potassium Chloride Packet 20 Meq Packet) 40 meq PO ONCE ONE Stop: 11/10/24 16:10 Sodium Chloride (0.9 % Sodium Chloride Flush 3 Ml Syringe) 3 ml IVFLUSH QSHIFT [facility] Home Medications ?Medication ?Instructions ?Recorded ?Confirmed ?Last Taken ?Type acetaminophen 325 mg tablet 650 mg PO TID 06/01/22 11/10/24 11/09/24 History tramadol 50 mg tablet 1 tab PO Q6H PRN Pain 06/01/22 11/10/24 11/09/24 History citalopram 20 mg tablet 20 mg PO DAILY 08/13/22 11/10/24 11/09/24 History digoxin 125 mcg (0.125 mg) tablet 0.125 mg PO DAILY 08/13/22 11/10/24 11/09/24 History famotidine 20 mg tablet 20 mg PO DAILY 08/13/22 11/10/24 11/09/24 History tacrolimus 0.1 % topical ointment 1 appl topical BID PRN Rash 12/10/22 11/10/24 11/09/24 History aspirin 81 mg tablet,delayed 81 mg PO DAILY 05/26/24 11/10/24 11/09/24 History release atenolol 25 mg tablet 25 mg PO DAILY 05/26/24 11/10/24 11/09/24 History dextran 70-hypromellose eye drops 1 drp ophthalmic (eye) BID 05/26/24 11/10/24 11/09/24 History in a dropperette (Artificial Tears (PF) drops in a dropperette) furosemide 40 mg tablet 40 mg PO DAILY 05/26/24 11/10/24 11/09/24 History polyethylene glycol 3350 17 17 g PO DAILY 05/26/24 11/10/24 11/09/24 History gram/dose oral powder (Miralax) sennosides 8.6 mg tablet (senna) 8.6 mg PO DAILY PRN Constipation 05/26/24 11/10/24 11/09/24 History hydrochlorothiazide 25 mg tablet 25 mg PO DAILY 11/10/24 11/10/24 11/09/24 History nystatin 100,000 unit/gram topical 1 appl topical BID PRN Rash 11/10/24 11/10/24 Unknown History powder Physical Exam 2 Vital Signs and Narrative: Vital Signs: Last Vital Signs Temp 97.4 F 11/10/24 13:48 Pulse 76 11/10/24 15:02 Resp 18 11/10/24 15:02 BP 144/53 H 11/10/24 15:02 Pulse Ox 100 11/10/24 15:02 O2 Del Method Nasal Cannula 11/10/24 15:02 O2 Flow Rate 2 11/10/24 15:02 BMI result Body Mass Index 50.5 Const: Other: Awake alert lying quietly in stretcher speaking in full sentences Resp: Other: Clear to auscultation all chance. No rales rhonchi or wheezes Cardio: Other: No S4; positive S1-S2; no S3 murmurs rubs or gallops GI: Other: Soft nontender nondistended normoactive bowel sounds Extrem: Other: Extensive lymphedema with weepy left lower extremity which is erythematous Results Labs 11/10/24 13:31 11/10/24 13:31 Labs: Laboratory Results - last 24 hr 11/10/24 11/10/24 13:31 13:36 MCV 85.7 MCH 27.1 MCHC 31.5 RDW 15.9 Plt Count 374 MPV 10.1 Immature Gran % (Auto) 0.8 H Neut % (Auto) 74.3 H Lymph % (Auto) 11.2 L [place] % (Auto) 10.5 Eos % (Auto) 2.4 Baso % (Auto) 0.8 Lymph # (Auto) 1.0 L [place] # (Auto) 1.0 Eos # (Auto) 0.2 Baso # (Auto) 0.1 Abs Immat Gran (auto) 0.07 H Absolute Neuts (auto) 6.9 Absolute Nucleated RBC 0.000 Nucleated RBC % (auto) 0.0 VBG pH 7.45 H VBG pCO2 48 VBG pO2 38 VBG HCO3 33 H VBG O2 Saturation 63.0 VBG Base Excess 8.6 Anion Gap 11 L Estim Creat Clear Calc 121.7 Estimated GFR > 60 Random Glucose 99 Calcium 9.0 Total Bilirubin 0.8 AST 21 ALT 9 Total Protein 6.4 L Albumin 3.4 L Influenza Type A (PCR) NEGATIVE Influenza Type B (PCR) NEGATIVE RSV RNA Qual (PCR) NEGATIVE SARS-CoV-2 RNA (RT-PCR) NEGATIVE Imaging Radiologist's Impressions: Impressions Chest CT 11/10/24 12:47 IMPRESSION: Cardiomegaly. Bilateral lung scarring. No focal airspace opacity is identified. Electronically signed by: Kali Everett MD 11/10/2024 03:06 PM EDT Assessment and Plan (1) Hypoxia: Status: Acute (2) Acute bilateral venous stasis dermatitis: Status: Acute (3) Acute hypokalemia: Status: Acute (4) Persistent atrial fibrillation: Status: Acute Plan 69-year-old female admitted after a fall to the emergency room found to desaturate during sleep. Ambulating cause further desaturation with work of breathing increased. Has history of lymphedema. Workup so far negative. 1. Hypoxemia -dry CT failed to demonstrate any pathology -we will CTA chest PE protocol in a.m. -supplemental O2 to maintain sats greater than or equal to 90% 2. Acute bilateral venous stasis dermatitis with superimposed cellulitis -we will treat with IV Ancef while in-house -follow up cultures 3. Acute hypokalemia -replete with oral potassium -follow renals/divalents in a.m. 4. Persistent atrial fibrillation -rate control acceptable -continue Eliquis -adjust therapies as clinically indicated Full code Eliquis Patient will require 1 night of hospitalization to complete workup for shortness of breath Quality Stroke Does the patient have a stroke diagnosis?: No VTE Prior VTE?: No VTE Risk Level:: Medical - moderate - high VTE Device Contraindication: Treatment Not Indicated VTE Drug Contraindication: N/A - Med Ordered
[2024-11-10] MEDS: Potassium Chloride Packet 20 MEQ PACKET 40 MEQ PO (16:48)
[2024-11-10 17:22] LABS: Alkaline Phosphatase 49 U/L (39-117)
[2024-11-10] MEDS: oxyCODONE HCl Immed Release 5 MG TABLET PO (17:27)
--- NOTE | 2024-11-10 18:47 | PC.NURSE ---
Pt's bilat leg wounds dressed w/ zeroform, nonstick, conforming gauzeing, helena wraps. Patient tolerated dressing change w/o difficulty.
[2024-11-10] MEDS: Apixaban 5 MG TABLET PO (20:11)
[2024-11-10] MEDS: 0.9 % Sodium Chloride Flush 3 ML SYRINGE IVFLUSH (20:12)
[2024-11-11] VITALS: BP 111/57; PULSE 84; RESP 20; TEMP 36.3; O2SAT 95
[2024-11-11] MEDS: Acetaminophen 325 MG TABLET 975 MG PO (00:32)
[2024-11-11] MEDS: oxyCODONE HCl Immed Release 5 MG TABLET PO ×4 (00:32→23:21)
[2024-11-11] MEDS: Melatonin 3 MG TABLET 6 MG PO (00:33)
[2024-11-11 03:35] VITALS: BP 128/61; PULSE 79; RESP 20; TEMP 36.2; O2SAT 98
[2024-11-11 05:54] LABS: MANUAL DIFF FLAG NO
[2024-11-11 06:01] LABS: Basophils Absolute Auto 0.1 X10*3/uL (0.0-0.2); Basophils Percent Auto 0.9 % (0-2); Eosinophils Absolute Auto 0.5 X10*3/uL (0.0-0.4); Eosinophils Percent Auto 5.8 % (0-4); Hematocrit 34.1 % (37.0-47.0); Imm Gran Abs Auto 0.06 X10*3/uL (0.00-0.03); Imm Gran Pct Auto 0.7 % (0.0-0.4); Lymphocytes Absolute Auto 1.3 X10*3/uL (1.2-4.9); Lymphocytes Percent Auto 13.9 % (20-40); Mean Corpuscular HGB Conc 32.3 g/dl (31.0-35.0); Mean Corpuscular Hemoglobin 27.7 pg (27.0-33.0); Mean Corpuscular Volume 85.9 fL (80.0-98.0); Mean Platelet Volume 10.2 fL (9.4-12.3); Monocytes Absolute Auto 1.2 X10*3/uL (0.1-1.2); Monocytes Percent Auto 12.8 % (2-11); Neutrophils Percent Auto 65.9 % (45-73); Platelet Count 357 X10*3/uL (160-400); Red Blood Count 3.97 X10*6/uL (4.20-5.50)
[2024-11-11 06:19] LABS: Alanine Aminotransferase < 6 U/L (0-31); Albumin Level 3.3 g/dL (3.5-5.0); Anion Gap 13 (12-20); Aspartate Amino Transferase 15 U/L (5-31); Bilirubin Total 0.5 mg/dL (0.0-1.0); Blood Urea Nitrogen 12 mg/dL (9-16); Carbon Dioxide 28 mmol/L (22-29); Chloride 99 mmol/L (96-108); Creatinine Clr Calc Pharmacy 104.7; Estimated Glomerular Filt Rate > 60; Glucose Random 114 mg/dL (60-115); Sodium 136 mmol/L (135-145); Total Protein 6.2 g/dL (6.5-8.0)
[2024-11-11 06:21] LABS: Alkaline Phosphatase 50 U/L (39-117)
[2024-11-11 07:31] VITALS: BP 142/63; PULSE 72; RESP 20; TEMP 36.1; O2SAT 96
[2024-11-11] MEDS: cephALEXin 500 MG CAPSULE PO (08:41)
[2024-11-11] MEDS: hydroCHLOROthiazide 25 MG TABLET PO (08:41)
[2024-11-11] MEDS: Furosemide 40 MG TABLET PO (08:41)
[2024-11-11] MEDS: atenoloL 25 MG TABLET PO (08:41)
[2024-11-11] MEDS: polyethylene glycoL 3350 17 GM POWD.PACK PO (08:41)
[2024-11-11] MEDS: Aspirin Enteric Coated 81 MG TABLET.DR PO (08:41)
[2024-11-11] MEDS: Escitalopram Oxalate 10 MG TABLET PO (08:42)
[2024-11-11] MEDS: Apixaban 5 MG TABLET PO ×2 (08:42→20:30)
[2024-11-11] MEDS: Digoxin 0.125 MG TABLET PO (08:42)
[2024-11-11] MEDS: Acetaminophen 325 MG TABLET 650 MG PO ×3 (08:42→20:30)
[2024-11-11] MEDS: 0.9 % Sodium Chloride Flush 3 ML SYRINGE IVFLUSH (08:42)
[2024-11-11] MEDS: Famotidine 20 MG TABLET PO (08:42)
[2024-11-11 11:25] VITALS: BP 132/68; PULSE 67; RESP 16; TEMP 36.7; O2SAT 98
--- NOTE | 2024-11-11 12:15 | MHC.CM.PN ---
TRUJILLO 11/11/24 9:30am. Patient has been changed to Inpatient status. IMM 11/11/24 12pm. Patient lives at [facility]. She was discharged from [facility] on 11/05/24. She was there for STR. Patient is forgetful. She uses a walker. She requires assist with ADLs. Sister Bonnie is her HCP. A copy has been requested. [facility] is active with the patient. A return referral has been sent. DP pending PT eval return to [facility] with [facility] vs STR via BLS.
--- NOTE | 2024-11-11 12:40 | P.PNIM_ITS ---
Subjective Subjective Date of Service: 11/11/24 Interval History: Left lower extremity remained erythematous and weepy; seen by wound care compressive dressings placed Review of Systems Denies chest pain Denies shortness of breath Denies nausea vomiting diarrhea Denies fever chills Physical Exam 2 Vital Signs: Vital Signs: Last Vital Signs Temp 98.1 F 11/11/24 11:25 Pulse 67 11/11/24 11:25 Resp 16 11/11/24 11:25 BP 132/68 11/11/24 11:25 Pulse Ox 98 11/11/24 11:25 O2 Del Method Room Air 11/11/24 11:25 O2 Flow Rate 1 11/11/24 03:35 BMI result Body Mass Index 48.3 Const: Other: Awake alert lying quietly in stretcher speaking in full sentences Resp: Other: Clear to auscultation all chance. No rales rhonchi or wheezes Cardio: Other: No S4; positive S1-S2; no S3 murmurs rubs or gallops GI: Other: Soft nontender nondistended normoactive bowel sounds Extrem: Other: Extensive lymphedema with weepy left lower extremity which is erythematous Objective Data Active Medications Acetaminophen (Acetaminophen 325 Mg Tablet) 975 mg PO Q6H PRN PRN Reason: Pain, Moderate(Pain Scale 4-6) Last Admin: 11/11/24 00:32 Dose: 975 mg Documented By: LUPE Acetaminophen (Acetaminophen 325 Mg Tablet) 650 mg PO TID [facility] Last Admin: 11/11/24 08:42 Dose: 650 mg Documented By: NURIA Apixaban (Apixaban 5 Mg Tablet) 5 mg PO BID [facility] Last Admin: 11/11/24 08:42 Dose: 5 mg Documented By: NURIA Aspirin (Aspirin Enteric Coated 81 Mg Tablet.) 81 mg PO DAILY [facility] Last Admin: 11/11/24 08:41 Dose: 81 mg Documented By: NURIA Atenolol (Atenolol 25 Mg Tablet) 25 mg PO DAILY [facility]; Protocol Last Admin: 11/11/24 08:41 Dose: 25 mg Documented By: NURIA Calcium Carbonate (Calcium Carbonate 750 Mg Tab.Chew) 750 mg PO Q4H PRN PRN Reason: Heartburn Digoxin (Digoxin 0.125 Mg Tablet) 0.125 mg PO DAILY [facility]; Protocol Last Admin: 11/11/24 08:42 Dose: 0.125 mg Documented By: NURIA Escitalopram Oxalate (Escitalopram Oxalate 10 Mg Tablet) 10 mg PO DAILY [facility] Last Admin: 11/11/24 08:42 Dose: 10 mg Documented By: NURIA Famotidine (Famotidine 20 Mg Tablet) 20 mg PO DAILY [facility] Last Admin: 11/11/24 08:42 Dose: 20 mg Documented By: NURIA Furosemide (Furosemide 40 Mg Tablet) 40 mg PO DAILY [facility]; Protocol Last Admin: 11/11/24 08:41 Dose: 40 mg Documented By: NURIA Hydrochlorothiazide (Hydrochlorothiazide 25 Mg Tablet) 25 mg PO DAILY [facility]; Protocol Last Admin: 11/11/24 08:41 Dose: 25 mg Documented By: NURIA Magnesium Hydroxide (Milk Of Magnesia 30 Ml Oral.Susp) 30 ml PO DAILY PRN PRN Reason: Constipation Melatonin (Melatonin 3 Mg Tablet) 6 mg PO BEDTIME PRN PRN Reason: Insomnia Last Admin: 11/11/24 00:33 Dose: 6 mg Documented By: ROBERTOQC Ondansetron HCl (Ondansetron Hcl 4 Mg/2 Ml Vial) 4 mg IVPUSH Q8H PRN PRN Reason: Nausea and Vomiting Oxycodone HCl (Oxycodone Hcl Immed Release 5 Mg Tablet) 5 mg PO Q6H PRN PRN Reason: Pain, Moderate(Pain Scale 4-6) Polyethylene Glycol (Polyethylene Glycol 3350 17 Gm Powd.Pack) 17 gm PO DAILY [facility] Last Admin: 11/11/24 08:41 Dose: 17 gm Documented By: NURIA Sodium Chloride (0.9 % Sodium Chloride Flush 3 Ml Syringe) 3 ml IVFLUSH QSHIFT [facility] Last Admin: 11/11/24 08:42 Dose: 3 ml Documented By: NURIA Labs 11/11/24 05:40 11/11/24 05:40 Labs: Laboratory Results - last 24 hr 11/10/24 11/10/24 11/11/24 13:31 13:36 05:40 MCV 85.7 85.9 MCH 27.1 27.7 MCHC 31.5 32.3 RDW 15.9 16.0 Plt Count 374 357 MPV 10.1 10.2 Immature Gran % (Auto) 0.8 H 0.7 H Neut % (Auto) 74.3 H 65.9 Lymph % (Auto) 11.2 L 13.9 L Heard % (Auto) 10.5 12.8 H Eos % (Auto) 2.4 5.8 H Baso % (Auto) 0.8 0.9 Lymph # (Auto) 1.0 L 1.3 Heard # (Auto) 1.0 1.2 Eos # (Auto) 0.2 0.5 H Baso # (Auto) 0.1 0.1 Abs Immat Gran (auto) 0.07 H 0.06 H Absolute Neuts (auto) 6.9 6.0 Absolute Nucleated RBC 0.000 0.000 Nucleated RBC % (auto) 0.0 0.0 VBG pH 7.45 H VBG pCO2 48 VBG pO2 38 VBG HCO3 33 H VBG O2 Saturation 63.0 VBG Base Excess 8.6 Anion Gap 11 L 13 Estim Creat Clear Calc 121.7 104.7 Estimated GFR > 60 > 60 Random Glucose 99 114 Calcium 9.0 9.0 Total Bilirubin 0.8 0.5 AST 21 15 ALT 9 < 6 Alkaline Phosphatase 49 50 Total Protein 6.4 L 6.2 L Albumin 3.4 L 3.3 L Influenza Type A (PCR) NEGATIVE Influenza Type B (PCR) NEGATIVE RSV RNA Qual (PCR) NEGATIVE SARS-CoV-2 RNA (RT-PCR) NEGATIVE Assessment and Plan (1) Cellulitis: Status: Resolved (2) Hypertension: Status: Inactive Plan 69-year-old female admitted after a fall to the emergency room found to desaturate during sleep. Ambulating cause further desaturation with work of breathing increased. Has history of lymphedema. Workup so far negative. 1. Hypoxemia -resolved. Question reliability of initial readings -supplemental O2 to maintain sats greater than or equal to 90% 2. Acute bilateral venous stasis dermatitis with superimposed cellulitis -worsened since admission. -we will switch to IV vancomycin/Zosyn -continue wound care as ordered 3. Acute hypokalemia -normalized -follow renals/divalents in a.m. 4. Persistent atrial fibrillation -rate control acceptable -continue Eliquis -adjust therapies as clinically indicated Full code Eliquis Can change in left lower extremity now will require IV antibiotics to treat worsening cellulitis. Patient at high risk for outpatient failure Quality Stroke Does the patient have a stroke diagnosis?: No VTE Prior VTE?: No VTE Risk Level:: Medical - moderate - high VTE Device Contraindication: Treatment Not Indicated VTE Drug Contraindication: N/A - Med Ordered
[2024-11-11] MEDS: Piperacillin Sodium/Tazobactam 3.375 GM in 0.9 % Sodium Chloride 50 ML IV ×2 (13:14→19:51)
--- NOTE | 2024-11-11 13:39 | HO.WOUND ---
Wound Consult: Initial 69yr old? female admitted to [facility] [place] 11/10/24 - See progress notes and H&P for detailed history.? Wound consult placed for Bilateral heels, and Bilateral Legs.? Patient agreeable to assessment and photo documentation.? Right Heel noted for redness and remains blanchable and intact - recommend preventative measures off load and foam applicaiton. Left Heel Etiology: ??Stage 1 Pressure injury Present on Admission Measurements: see charting for detailed measurement Wound Bed: intact red nonblanchable tissue Drainage / Odor: None Edges: ? Linear and attached Alannah wound: red pink tissue ? No Induration, Fluctuance or Warmth noted Pain: pain reported Goals of Treatment: ? Foam dressing to aid in pressure redistribution and off load heel from surface with pillows Bilateral Lower Legs Etiology: ?Venous Dermatitis Wound Bed: intact dry red hyperpigmentation dry desquamation Drainage / Odor: None Goals of Treatment: ? Ammonium Lactate application per provider order cover with dry ABD pad and Eleastic netting elevate off of bed or recliner surface with pillows. Apply interdry to large skin folds for moisture wicking Recommendations: 1. Turn and Reposition every 2 hours and as needed for patient comfort.? Use pillows or wedges to support off loading positions. 2. Off Load all bony prominences with use of pillows and heel boots if needed.? Apply Preventative foams where needed. ? 3. Monitor for incontinence and moisture control, use barrier creams when needed for prevention and treatment. 4. Provide adequate and supplemental nutrition.? 5. Order low air loss mattress. 6. When applicable maintain blood glucose levels per Providers order. Bilateral Lower Legs - Cleanse with Nathan Calder, pat dry. Apply Ammonium Lactate to lower legs per provider orders. Cover with Abd pad and Elastic netting. Change daily. Apply Interdry to large skin folds to translocate moisture. Bilateral Heels - Apply Skin Prep allow to dry. Apply Foam dressing to heel - elevate off of recliner and bed surface with pillows. Change every 3 days. Re-consult wound care Nurse for wound deterioration or wound changes.
[2024-11-11] MEDS: vancomycin/NS 2,000 MG/500 ML PLAST..BAG 250 MG IV (14:30)
[2024-11-11 15:52] VITALS: BP 157/71; PULSE 67; RESP 12; TEMP 36.1; O2SAT 98
[2024-11-11 19:16] VITALS: BP 139/62; PULSE 61; RESP 17; TEMP 36.4; O2SAT 96
[2024-11-12] MEDS: 0.9 % Sodium Chloride Flush 3 ML SYRINGE IVFLUSH ×2 (00:09→20:37)
[2024-11-12] MEDS: Piperacillin Sodium/Tazobactam 3.375 GM in 0.9 % Sodium Chloride 50 ML IV ×4 (01:19→18:30)
[2024-11-12] MEDS: vancomycin HCL 1,000 MG in 0.9 % Sodium Chloride 250 ML 270 MG IV ×2 (01:52→16:01)
[2024-11-12 03:27] VITALS: BP 147/68; PULSE 64; RESP 20; TEMP 36.3; O2SAT 97
[2024-11-12 06:24] LABS: MANUAL DIFF FLAG NO
[2024-11-12 06:45] LABS: Basophils Absolute Auto 0.1 X10*3/uL (0.0-0.2); Basophils Percent Auto 0.9 % (0-2); Eosinophils Absolute Auto 0.6 X10*3/uL (0.0-0.4); Eosinophils Percent Auto 7.2 % (0-4); Hematocrit 34.9 % (37.0-47.0); Hemoglobin 10.7 g/dl (12.0-16.0); Imm Gran Abs Auto 0.05 X10*3/uL (0.00-0.03); Imm Gran Pct Auto 0.6 % (0.0-0.4); Lymphocytes Absolute Auto 1.1 X10*3/uL (1.2-4.9); Lymphocytes Percent Auto 13.2 % (20-40); Mean Corpuscular HGB Conc 30.7 g/dl (31.0-35.0); Mean Corpuscular Hemoglobin 26.9 pg (27.0-33.0); Mean Corpuscular Volume 87.7 fL (80.0-98.0); Mean Platelet Volume 10.7 fL (9.4-12.3); Monocytes Percent Auto 11.9 % (2-11); Neutrophils Absolute Auto 5.6 x10*3/uL (2.0-8.3); Neutrophils Percent Auto 66.2 % (45-73); Platelet Count 389 X10*3/uL (160-400); Red Blood Count 3.98 X10*6/uL (4.20-5.50); Red Cell Distribution Width 16.2 % (11.0-16.0); White Blood Count 8.4 X10*3/uL (4.8-10.8)
[2024-11-12 07:30] VITALS: BP 146/63; PULSE 74; RESP 14; TEMP 36.3; O2SAT 98
[2024-11-12 07:31] LABS: Alanine Aminotransferase 8 U/L (0-31); Albumin Level 3.2 g/dL (3.5-5.0); Anion Gap 11 (12-20); Aspartate Amino Transferase 17 U/L (5-31); Bilirubin Total 0.3 mg/dL (0.0-1.0); Blood Urea Nitrogen 13 mg/dL (9-16); Calcium 8.6 mg/dL (8.4-10.2); Carbon Dioxide 31 mmol/L (22-29); Chloride 102 mmol/L (96-108); Creatinine Clr Calc Pharmacy 101.8; Estimated Glomerular Filt Rate > 60; Glucose Fasting 109 mg/dL (60-99); Potassium 4.4 mmol/L (3.3-5.1); Sodium 140 mmol/L (135-145)
[2024-11-12] MEDS: Famotidine 20 MG TABLET PO (08:14)
[2024-11-12] MEDS: Aspirin Enteric Coated 81 MG TABLET.DR PO (08:14)
[2024-11-12] MEDS: Digoxin 0.125 MG TABLET PO (08:14)
[2024-11-12] MEDS: Acetaminophen 325 MG TABLET 650 MG PO ×3 (08:15→20:37)
[2024-11-12] MEDS: atenoloL 25 MG TABLET PO (08:16)
[2024-11-12] MEDS: Furosemide 40 MG TABLET PO (08:16)
[2024-11-12] MEDS: hydroCHLOROthiazide 25 MG TABLET PO (08:17)
[2024-11-12] MEDS: Apixaban 5 MG TABLET PO ×2 (08:17→20:37)
[2024-11-12] MEDS: Escitalopram Oxalate 10 MG TABLET PO (08:17)
[2024-11-12 08:20] LABS: Alkaline Phosphatase 51 U/L (39-117)
--- NOTE | 2024-11-12 11:53 | MHC.CM.PN ---
CM MET WITH PT TO DISCUSS DC PLANNING PT STATES SHE IS AGREEABLE TO STR SHE PREFERS [facility] IT IS NEAR HER [facility] IS OFFERING A BED MDS COMPLETED AND FAXED TO [facility], PT WILL NOT HAVE A QHS TO USE HER MCR IF SHE DISCHARGES TOMORROW EXPECTED SNF WORKING ON LEVEL I
[2024-11-12 12:49] LABS: Vancomycin Random 15.4 mcg/mL (15-20)
--- NOTE | 2024-11-12 14:56 | HO.PM.IMPN ---
Subjective Subjective Date of Service: 11/12/24 Interval History: seen and examined this morning Follow-up for left lower extremity cellulitis Has ongoing left foot pain Review of Systems Review of Systems: Yes all other systems are reviewed and are negative Constitutional Constitutional: Denies chills and Denies fever(s) Physical Exam Vital Signs: Vital Signs: Last Vital Signs Temp 97.4 F 11/12/24 07:30 Pulse 74 11/12/24 07:30 Resp 14 11/12/24 07:30 BP 146/63 H 11/12/24 07:30 Pulse Ox 98 11/12/24 07:30 O2 Del Method Room Air 11/12/24 07:30 O2 Flow Rate 1 11/11/24 03:35 BMI result Body Mass Index 48.3 Const: General: cooperative, comfortable, no acute distress, alert and awake Nutritional Appearance: obese Resp: Effort & Inspection: no respiratory distress and no use of accessory muscles Cardio: Rate: regular rate GI: Inspection: No distended and Yes obesity Skin: Other: b/l lymphedema; legs wrapped in clean/dry dressings; dry thickended skin b/l; left foot erythematous Objective Data Active Medications Acetaminophen (Acetaminophen 325 Mg Tablet) 975 mg PO Q6H PRN PRN Reason: Pain, Moderate(Pain Scale 4-6) Last Admin: 11/11/24 00:32 Dose: 975 mg Documented By: LUPE Acetaminophen (Acetaminophen 325 Mg Tablet) 650 mg PO TID [facility] Last Admin: 11/12/24 08:15 Dose: 650 mg Documented By: ROBYN Apixaban (Apixaban 5 Mg Tablet) 5 mg PO BID [facility] Last Admin: 11/12/24 08:17 Dose: 5 mg Documented By: ROBYN Aspirin (Aspirin Enteric Coated 81 Mg Tablet.) 81 mg PO DAILY [facility] Last Admin: 11/12/24 08:14 Dose: 81 mg Documented By: ROBYN Atenolol (Atenolol 25 Mg Tablet) 25 mg PO DAILY [facility]; Protocol Last Admin: 11/12/24 08:16 Dose: 25 mg Documented By: ROBYN Calcium Carbonate (Calcium Carbonate 750 Mg Tab.Chew) 750 mg PO Q4H PRN PRN Reason: Heartburn Digoxin (Digoxin 0.125 Mg Tablet) 0.125 mg PO DAILY [facility]; Protocol Last Admin: 11/12/24 08:14 Dose: 0.125 mg Documented By: ROBYN Escitalopram Oxalate (Escitalopram Oxalate 10 Mg Tablet) 10 mg PO DAILY [facility] Last Admin: 11/12/24 08:17 Dose: 10 mg Documented By: ROBYN Famotidine (Famotidine 20 Mg Tablet) 20 mg PO DAILY [facility] Last Admin: 11/12/24 08:14 Dose: 20 mg Documented By: ROBYN Furosemide (Furosemide 40 Mg Tablet) 40 mg PO DAILY [facility]; Protocol Last Admin: 11/12/24 08:16 Dose: 40 mg Documented By: ROBYN Hydrochlorothiazide (Hydrochlorothiazide 25 Mg Tablet) 25 mg PO DAILY [facility]; Protocol Last Admin: 11/12/24 08:17 Dose: 25 mg Documented By: ROBYN Piperacillin Sod/Tazobactam (Sod 3.375 gm/ Sodium Chloride) 50 mls @ 100 mls/hr IV Q6H [facility] Last Infusion: 11/12/24 14:32 Dose: Infused Documented By: ROBYN Vancomycin HCl 1,000 mg/ (Sodium Chloride) 270 mls @ 270 mls/hr IV Q12H [facility] Last Infusion: 11/12/24 03:41 Dose: Infused Documented By: SOHAN Lactic Acid (Ammonium Lactate 12 % Cream 140 Gm Tube) 1 appl TOPICAL DAILY [facility]; Protocol Magnesium Hydroxide (Milk Of Magnesia 30 Ml Oral.Susp) 30 ml PO DAILY PRN PRN Reason: Constipation Melatonin (Melatonin 3 Mg Tablet) 6 mg PO BEDTIME PRN PRN Reason: Insomnia Last Admin: 11/11/24 00:33 Dose: 6 mg Documented By: LUEP Ondansetron HCl (Ondansetron Hcl 4 Mg/2 Ml Vial) 4 mg IVPUSH Q8H PRN PRN Reason: Nausea and Vomiting Oxycodone HCl (Oxycodone Hcl Immed Release 5 Mg Tablet) 5 mg PO Q6H PRN PRN Reason: Pain, Moderate(Pain Scale 4-6) Last Admin: 11/11/24 23:21 Dose: 5 mg Documented By: SOHAN Pharmacy Consult (Consult Rx Vancomycin Dosing) 1 each MISCELLANE DAILY PRN PRN Reason: Consult order Polyethylene Glycol (Polyethylene Glycol 3350 17 Gm Powd.Pack) 17 gm PO DAILY [facility] Last Admin: 11/12/24 08:21 Dose: Not Given Documented By: ROBYN Non-Admin Reason: Patient Refused Sodium Chloride (0.9 % Sodium Chloride Flush 3 Ml Syringe) 3 ml IVFLUSH QSHIFT [facility] Last Admin: 11/12/24 08:17 Dose: Not Given Documented By: ROBYN Non-Admin Reason: IV Running Labs 11/12/24 05:51 11/12/24 05:52 Labs: Laboratory Results - last 24 hr 11/12/24 11/12/24 11/12/24 05:51 05:52 12:28 MCV 87.7 MCH 26.9 L MCHC 30.7 L RDW 16.2 H Plt Count 389 MPV 10.7 Immature Gran % (Auto) 0.6 H Neut % (Auto) 66.2 Lymph % (Auto) 13.2 L Deuel % (Auto) 11.9 H Eos % (Auto) 7.2 H Baso % (Auto) 0.9 Lymph # (Auto) 1.1 L Deuel # (Auto) 1.0 Eos # (Auto) 0.6 H Baso # (Auto) 0.1 Abs Immat Gran (auto) 0.05 H Absolute Neuts (auto) 5.6 Absolute Nucleated RBC 0.000 Nucleated RBC % (auto) 0.0 Anion Gap 11 L Estim Creat Clear Calc 101.8 Estimated GFR > 60 Fasting Glucose 109 H Calcium 8.6 Total Bilirubin 0.3 AST 17 ALT 8 Alkaline Phosphatase 51 Total Protein 6.0 L Albumin 3.2 L Random Vancomycin 15.4 Assessment and Plan (1) Acute bilateral venous stasis dermatitis: Status: Acute Plan 69-year-old female admitted after a fall to the emergency room found to desaturate during sleep. Ambulating cause further desaturation with work of breathing increased. Has history of lymphedema. Workup so far negative. Hypoxemia resolved. Question reliability of initial readings remains on room air Acute bilateral venous stasis dermatitis/chronic lymphedema with superimposed cellulitis Continue IV vancomycin/Zosyn continue wound care as [id number] ordered will need outpatient follow up for lymphedema/compresson therapy Acute hypokalemia resolved Persistent atrial fibrillation Continue digoxin continue Eliquis Hypertension Continue hydrochlorothiazide, Lasix, atenolol Mood Continue Lexapro Morbid obesity and BMI 48.3 new arranged Full code Eliquis Requires ongoing inpatient stay for management of left lower extremity cellulitis requiring IV antibiotics Patient at high risk for outpatient failure Disposition-PT recommended short-term rehab Quality Stroke Does the patient have a stroke diagnosis?: No VTE Prior VTE?: No VTE Risk Level:: Medical - moderate - high VTE Device Contraindication: Treatment Not Indicated VTE Drug Contraindication: N/A - Med Ordered
[2024-11-12] MEDS: oxyCODONE HCl Immed Release 5 MG TABLET PO (15:17)
[2024-11-12] MEDS: Ammonium Lactate 12 % Cream 140 GM TUBE 1 APPL TOPICAL (15:18)
[2024-11-12 15:23] VITALS: BP 152/79; PULSE 73; RESP 14; TEMP 36.4; O2SAT 95
[2024-11-12 20:00] VITALS: BP 148/67; PULSE 70; RESP 19; TEMP 36.1; O2SAT 99
[2024-11-13] MEDS: Piperacillin Sodium/Tazobactam 3.375 GM in 0.9 % Sodium Chloride 50 ML IV ×3 (01:18→14:02)
[2024-11-13] MEDS: vancomycin HCL 1,000 MG in 0.9 % Sodium Chloride 250 ML 270 MG IV ×2 (01:58→14:45)
[2024-11-13] MEDS: oxyCODONE HCl Immed Release 5 MG TABLET PO ×2 (02:33→09:23)
[2024-11-13 03:44] VITALS: BP 123/61; PULSE 58; RESP 17; TEMP 36.1; O2SAT 97
[2024-11-13 07:25] VITALS: BP 133/66; PULSE 84; RESP 18; TEMP 36.1; O2SAT 98
[2024-11-13] MEDS: Aspirin Enteric Coated 81 MG TABLET.DR PO (08:55)
[2024-11-13] MEDS: Escitalopram Oxalate 10 MG TABLET PO (08:55)
[2024-11-13] MEDS: Acetaminophen 325 MG TABLET 650 MG PO ×2 (08:56→14:56)
[2024-11-13] MEDS: hydroCHLOROthiazide 25 MG TABLET PO (08:56)
[2024-11-13] MEDS: atenoloL 25 MG TABLET PO (08:57)
[2024-11-13] MEDS: Famotidine 20 MG TABLET PO (08:57)
[2024-11-13] MEDS: Furosemide 40 MG TABLET PO (08:57)
[2024-11-13] MEDS: Apixaban 5 MG TABLET PO (08:57)
[2024-11-13] MEDS: Ammonium Lactate 12 % Cream 140 GM TUBE 1 APPL TOPICAL (08:57)
[2024-11-13] MEDS: Digoxin 0.125 MG TABLET PO (08:57)
[2024-11-13] MEDS: 0.9 % Sodium Chloride Flush 3 ML SYRINGE IVFLUSH (08:58)
--- NOTE | 2024-11-13 10:38 | P.DS_ITS ---
DS: Providers Provider Date of Service: 11/13/24 Date of admission: 11/11/24 12:23 Date of discharge: 11/13/24 Primary care physician: Harshal Thompson MD Consults: 11/10/24 20:05 Consult to Wound Care Routine Reason for consultation: bilateral lower legs/heels Attending physician on discharge: Dana Hester Discharging clinician: Ankita Henry DS: Diagnosis Discharge Diagnosis (1) Acute bilateral venous stasis dermatitis: Status: Acute DS: Summary Hospital Course Hospital Course: From H&P on the day of admission 69 yo female with PMH of afib on eliquis, HTN, lymphema and chronic venous stasis wounds, here with c/o her R knee chronically giving out and she landed on her buttocks she was on the ground for only 30 minutes she did not hit her head and just sat on her buttocks. She denies any trauma she has no pain she states the assisted living facility made her get checked out. She has chronic leg wounds and weeping and her RETIREMENT only has VNA once a week. She denies fevers, change in the wounds. She has no other complaints. Patient noticed to be desaturating during sleep; ambulated by staff and found to have sats in the 70s with increased work of breathing. CT scan of the chest failed to demonstrate any acute abnormalities. She will be admitted for further workup of her shortness of breath Hypoxemia resolved. Question reliability of initial readings. Chest CT negative, remains on room air. no respiratory symptoms. Acute bilateral venous stasis dermatitis/chronic lymphedema with superimposed cellulitis WBC count resolve, remained afebrile. Treated with IV vancomycin/Zosyn. seen by wound care nurse and wound care instructions provided. Complete course of oral antibiotics. We will need outpatient follow-up in Wound Care Clinic and lymphedema treatment. Acute hypokalemia resolved left heel stage 1 pressure injury. present on admission. see wound care instructions for care. Patient evaluated by Physical therapy who recommended short-term rehab he area patient will be transferred short-term rehab in stable condition. No changes made to baseline medications Time Attestation Discharge Coordination Time (in mins): 36 Quality: Safe Use of Opioids Does Pt have an Active Cancer Diagnosis on the Problem List?: No Quality: Stroke Does the patient have a stroke diagnosis?: No Physical Exam Vital Signs: Vital Signs: Last Vital Signs Temp 97.0 F 11/13/24 07:25 Pulse 84 11/13/24 07:25 Resp 18 11/13/24 07:25 BP 133/66 11/13/24 07:25 Pulse Ox 98 11/13/24 07:25 O2 Del Method Room Air 11/13/24 07:25 O2 Flow Rate 1 11/11/24 03:35 BMI result Body Mass Index 48.3 Const: Other: forgetful; vague General: cooperative, comfortable, no acute distress, alert and awake Nutritional Appearance: obese Orientation/consciousness: oriented to person and oriented to place Resp: Effort & Inspection: normal respiratory effort, able to speak in complete sentences, no respiratory distress and no use of accessory muscles Cardio: Rate: regular rate GI: Inspection: No distended and Yes obesity Skin: Other: b/l lymphedema; dry thickened skin b/l with chronic venous stasis skin changes Neuro: General: oriented to person, oriented to place, moves all extremities and CN's II-XI intact bilaterally Extrem: Other: chronic lymphedema DS: Data Data Completed and Pending Labs on day of discharge: Laboratory Results - last 24 hr 11/12/24 12:28 Random Vancomycin 15.4 Discharge Plan Discharge Anticipated Discharge Date/Time: 11/13/24 11:03 Patient Disposition: Xfer SNF Discharge Diagnosis: lymphedema/chronic venous stasis dermatitis Referrals: [facility] [Other] - 1 Week [facility] [Outside] Harshal Thompson MD [Primary Care Provider] - Anne Soler MD [Physician] - 1 Week Discharge Medications: New amoxicillin-pot clavulanate 875-125 mg tablet 1 tab PO Q12H 7 Days Qty: 14 0RF doxycycline hyclate 100 mg tablet 100 mg PO BID 7 Days Qty: 14 0RF oxycodone 5 mg tablet 5 mg PO Q6H PRN (Reason: pain) Qty: 10 0RF Rx Instructions: Partial Fill upon patient request. Continued acetaminophen 325 mg Tablet 650 mg PO TID Eliquis 5 mg Tablet 5 mg PO BID Qty: 60 0RF citalopram 20 mg tablet 20 mg PO DAILY famotidine 20 mg tablet 20 mg PO DAILY furosemide 40 mg Tablet 40 mg PO DAILY sennosides [senna] 8.6 mg Tablet 8.6 mg PO DAILY PRN (Reason: Constipation) aspirin 81 mg Tablet,Delayed Release (Dr/Ec) 81 mg PO DAILY polyethylene glycol 3350 [Miralax] 17 gram/dose Powder 17 g PO DAILY Rx Instructions: mix with 6-8oz of water Artificial Tears (PF) Dropperette 1 drp OPHTHALMIC (EYE) BID atenolol 25 mg Tablet 25 mg PO DAILY hydrochlorothiazide 25 mg Tablet 25 mg PO DAILY nystatin 100,000 unit/gram Powder 1 appl TOPICAL BID PRN (Reason: Rash) digoxin 125 mcg (0.125 mg) tablet 0.125 mg PO DAILY tacrolimus 0.1 % ointment 1 appl topical BID PRN (Reason: Rash) Held tramadol 50 mg tablet 1 tab PO Q6H PRN (Reason: Pain) Hold Instructions: hold while receiving oxy. can resume as indicated Discharge Orders: Discharge Order (Routine); Ordered 11/13/24 Ordered By: Ankita Henry Activity on Discharge: As tolerated Stand Alone Forms: Patient Portal Discharge page, Against Medical Advice Print Language: Syrian Care Plan Goals: see below Health Concerns: b/l lymphedema and chronic venous stasis with superimposed cellulitis without sepsis Plan of Treatment: Complete 7 more days of oral antibiotics as prescribed Outpatient lymphedema care/follow-up with Wound Care Clinic wound care recommendations: Bilateral Lower Legs - Cleanse with Nathan Gould, pat dry. Apply Ammonium Lactate to lower legs. Cover with Abd pad and Elastic netting. Change daily. Apply Interdry to large skin folds to translocate moisture. Bilateral Heels - Apply Skin Prep allow to dry. Apply Foam dressing to heel - elevate off of recliner and bed surface with pillows. Change every 3 days. Assessment: see discharge summary Patient Instructions: Hypokalemia (ED), Lymphedema (ED)
[2024-11-13 11:19] VITALS: BP 137/65; PULSE 85; RESP 17; TEMP 36.3; O2SAT 98
--- NOTE | 2024-11-13 11:25 | P.CDIM_ITS ---
PROVIDER RESPONSE TEXT: To clarify, the appropriate diagnosis supported by the clinical indicators: Pressure injury Stage 1 left heel: there is a stage 1 pressure injury to the left heel QUERY TEXT: PHYSICIAN'S DOCUMENTATION REQUEST Date of Query: 11/13/2024 08:04 AM EDT Patient Name: Mark Garcia Admit Date: 11/11/2024 Dear Ankita AZEVEDO, A review of the medical record indicates additional documentation may be needed. Please review below and update the documentation accordingly. Clinical Indicators: Wound care notes 11/12/24 - Pressure injury Stage 1 left heel - Present on admission. Intact red nonblanchable tissue Foam dressing to aid in pressure redistribution and off load heel from surface with pillows. Based on the above, could you please provide further information regarding the ulcer/wound/injury: Pressure injury Stage 1 left heel possible, probable, suspected, cannot rule out Other specified Other (explain) Clinically unable to determine (explain) Thank you, Peyton Jade, CCS, CDIS Use of terms such as suspected, likely, concern for, or probable (associated with a specific diagnosi s that is being evaluated, monitored, or treated as if it exists) are acceptable and can be coded in the inpatient se tting, when documented at the time of discharge. Please use your independent medical judgment in providing your response. THIS QUERY IS PART OF THE PERMANENT MEDICAL RECORD
--- NOTE | 2024-11-13 11:55 | MHC.CM.PN ---
PT IS DCD TODAY AT 4 TO [facility] PT AWARE AMB BOOKED
[2024-11-13 12:21] LABS: Creatinine Clr Calc Pharmacy 104.7; Estimated Glomerular Filt Rate > 60
--- NOTE | 2024-11-13 12:37 | HE.PHANOTE ---
vanco dose adjustment Based on scr and vanco trough dose continued at 1000 q 12h
[2024-11-13 15:35] VITALS: BP 135/72; PULSE 68; RESP 18; TEMP 36.2; O2SAT 99
== END 2024-11-13 16:49 | disposition skilled nursing facility (03) | DRG 603 ==
LOC: HO.ED 11-10 15:26 → HO.EDOVER 11-10 16:12 → HO.S3 11-10 19:12
PROVIDERS: Emergency Medicine; Physician Assistant Medical; Admitting Provider Hospitalist; Emergency Provider Emergency Medicine Emergency Medical Services; PCP Internal Medicine; Visit Provider Physician Assistant Medical
DX: L03.115 Cellulitis of right lower limb (principal); I48.19 Other persistent atrial fibrillation; L97.829 Non-pressure chronic ulcer of other part of left lower leg with unspecified severity; L97.819 Non-pressure chronic ulcer of other part of right lower leg with unspecified severity; Z68.42 Body mass index [BMI] 45.0-49.9, adult; L03.116 Cellulitis of left lower limb; G35 Multiple sclerosis; E66.01 Morbid (severe) obesity due to excess calories; I89.0 Lymphedema, not elsewhere classified; Z71.3 Dietary counseling and surveillance; I10 Essential (primary) hypertension; R09.02 Hypoxemia; I87.2 Venous insufficiency (chronic) (peripheral); L89.621 Pressure ulcer of left heel, stage 1; E87.6 Hypokalemia; Z20.822 Contact with and (suspected) exposure to COVID-19; Z87.891 Personal history of nicotine dependence; Z79.01 Long term (current) use of anticoagulants; Z79.82 Long term (current) use of aspirin; Z79.899 Other long term (current) drug therapy
CPT/HCPCS: 0241U; 36415; 71260; 80048; 80053; 80202; 82565; 82803; 83880; 84132; 84484; 85025; 85610; 93005; 97161; 99221; 99285; J2543; J3370; Q9967

== ENCOUNTER → 2024-11-09 11:25 | Outpatient (BNV) | payer MEDICARE, MEDICAID, SELFPAY | PROVIDERS: Emergency Provider Emergency Medicine; PCP Internal Medicine; Visit Provider Internal Medicine Cardiovascular Disease | DX: I48.91 Unspecified atrial fibrillation (principal) | CPT/HCPCS: 93010 ==

== ENCOUNTER → 2024-11-10 12:47 | Outpatient (BNV) | payer MEDICARE, MEDICAID, SELFPAY | PROVIDERS: Emergency Provider Emergency Medicine Emergency Medical Services; PCP Internal Medicine; Visit Provider Radiology Diagnostic Radiology | DX: R06.02 Shortness of breath (principal) | CPT/HCPCS: 71260 ==

== ENCOUNTER → 2024-11-10 12:47 | Outpatient (BNV) | payer MEDICARE, MEDICAID, SELFPAY | PROVIDERS: Emergency Provider Emergency Medicine Emergency Medical Services; PCP Internal Medicine; Visit Provider Internal Medicine Cardiovascular Disease | DX: I48.91 Unspecified atrial fibrillation (principal) | CPT/HCPCS: 93010 ==

== ENCOUNTER → 2024-11-10 16:04 | Outpatient (BNV) | payer MEDICARE, MEDICAID, SELFPAY | PROVIDERS: Admitting Provider Hospitalist; Emergency Provider Emergency Medicine Emergency Medical Services; PCP Internal Medicine; Visit Provider Hospitalist | DX: I48.19 Other persistent atrial fibrillation (principal); R09.02 Hypoxemia; I87.2 Venous insufficiency (chronic) (peripheral); E87.6 Hypokalemia | CPT/HCPCS: 99223; 99232; 99233; 99239 ==

== ENCOUNTER 2025-01-12 13:03 | Outpatient (AMB) | payer MEDICARE, MEDICAID, SELFPAY ==
--- NOTE | 2025-01-12 13:12 | MHC.PC.OV ---
Vital Signs 01/12/25 13:15 Height 5 ft 3.5 in Weight 125.645 kg BMI 48.3 BP 126/74 Respiration 18 Pulse 97 Pulse Source Pulse Oximeter Temp 97.5 F Temp Source Temporal Artery Scan Pulse Oximetry (%) 98 Oxygen Delivery Method Room Air Intake Visit Reasons: Routine - see comments [employer]works [employer] Supervisor Required: No Accompanied by: Sister Allergies codeine [Codeine] Allergy (Mild, Verified 01/12/25 14:21) ITCH lisinopril [Lisinopril] Allergy (Unknown, Verified 01/12/25 14:21) VOMITING HPI HPI Comments History of Present Illness Details 69 year old female with history of MS, chronic afib, lymphedemia, htn, unspecified dementia, who is morbidly obese presents to the office accompanied by her sister, Bonnie, from [facility] for management of chronic conditions and to establish care. Chronic afib- Previously following with Dr. Swanson, no longer under cardiology care. On eliquix for ac. On atenolol and digoxin. Asymptomatic. Rate 97 HTN- bp 126/74 in office. Compliant with lasix, hctz, atenolol. MS- unclear neurologist. Asymptomatic except does ambulate with walker more due to lymphedema but also endorse ble weakness. no meds Cognitive impairment- unspecified. Living at [facility], no driving. Not on meds Chronic ble lymphedema- has nursing once weekly to help with wraps/management. Otherwise not wrapping on her own. Reports good hygeine, however strong foul odor and purulence noted with weeping through the pants. compliant with diuretics Health Maintenance: Due for mammo Due for dexa Due for colonoscopy ROS: General: No fevers, malaise, unintentional weight loss HEENT: No blurred vision, diplopia. No sore throat, nasal congestion, rhinorrhea, sinus pain, ear pain Cardiovascular: No chest pain, palpitations, or leg edema Respiratory: No shortness of breath, wheezing, cough Neuro: No headaches, weakness, paresthesias Skin: see hpi EXAM: Constitutional - Awake and Alert, No apparent distress, morbidly obese Eyes - PERRL Cardiovascular - S1S2, RRR, No edema Respiratory - Normal lung expansion, Normal respiratory effort, No respiratory distress, CTA bilaterally Extremities - no calf tenderness bilaterally, no swelling Skin - Warm/Dry. Venous stasis changes/lymphedema to ble. Dusky erythema distal half right lower leg. Left lower leg significantly swollen/edematous with thickened erythematous skin/slough/purulence with strong foul odor. Several in tact bullae and multiple weeping venous ulcers Neurological - Alert & oriented x3 Psychological - Appropriate affect [facility], [facility] Medical History (Updated 01/12/25 @ 22:10 by JOLLY Ferro) Persistent atrial fibrillation Hypertension Lymphedema Varicose veins of left lower extremity with inflammation Seroma Chronic acquired lymphedema Multiple sclerosis Afib Atrial fibrillation Surgical History No pertinent past surgical history Family History Father No problems noted. Mother No problems noted. Other No family history of coronary artery disease Social History Household Members: Other Household Members Other:: patient has her own room in an assisted living facility Housing: Assisted Living Facility Do you presently have visiting nurse or other home services: No Patient Tobacco Use Status: Former Tobacco user Tobacco use type: Cigarette Cigarettes Per Day: 30 Years Smoked: 25 Second Hand Smoke Exposure: No service: No Current occupational status: retired Questionnaire PHQ-9 Over the last 2 weeks, how often have you been bothered by any of the following problems? 1. Little interest or pleasure in doing things: more than half the days 2. Feeling down, depressed, or hopeless: several days 3. Trouble falling or staying asleep, or sleeping too much: nearly every day 4. Feeling tired or having little energy: several days 5. Poor appetite or overeating: nearly every day 6. Feeling bad about yourself - or that you are a failure or have let yourself or your family down: not at all 7. Trouble concentrating on things, such as reading the newspaper or watching television: not at all 8. Moving or speaking so slowly that other people could have noticed. Or the opposite - being so fidgety or restless that you have been moving around a lot more than usual: not at all 9. Thoughts that you would be better off or of hurting yourself in some way: not at all Total score: 10 Source: Developed by Drs. Kali Castro, Nola Mclean, Zeke Frazier and colleagues, with an educational roge from [employer]. Thrive Questionnaire Date Thrive assessed: 01/12/25 I am a: Patient What is your living situation today?: I have a steady place to live Within the past 12 months, did the food you bought not last and you didn't have the money to get more?: Never true Within the past 12 months, did you worry whether your food would run out before you got money to buy more?: Never true Do you have trouble paying for medicines?: No Do you have trouble getting transportation to medical appointments?: No Do you have trouble paying your heating and electricity bill?: No Do you have trouble taking care of your child, family member or friend?: No Do you have trouble with day-to-day activities such as bathing, preparing meals, shopping, managing finances, etc.?: No Are you currently unemployed and looking for a job?: No Are you interested in more education?: No Please select the resources that you would like help with: None THRIVE Score: 0 YOLIS-7 AMB Questionnaire YOLIS-7 Date YOLIS - 7 assessed: 01/12/25 Feeling nervous, anxious, or on edge: 0 = Not at all Not being able to stop or control worryin = Not at all Worrying too much about different things: 0 = Not at all Trouble relaxin = Not at all Being so restless that it is hard to sit still: 0 = Not at all Becoming easily annoyed or irritable: 0 = Not at all Feeling afraid as if something awful might happen: 0 = Not at all Total YOLIS-7 score (0-4 normal; 5-9 mild; 10-14 moderate; 15-21 severe): 0 Source: Developed by Drs. Kali Castro, Nola Mclean, Zeke Frazier and colleagues, with an educational roge from [employer]. Physical exam (Primary Care) Vital Signs: Last Vital Signs Temp 97.5 F 01/12/25 13:15 Pulse 97 01/12/25 13:15 Resp 18 01/12/25 13:15 BP 126/74 01/12/25 13:15 Pulse Ox 98 01/12/25 13:15 Oxygen Delivery Method Room Air 01/12/25 13:15 BMI result Body Mass Index 48.3 Tobacco/Smoking Status: Tobacco use Status Patient Tobacco Use Status Former Tobacco user 01/12/25 13:19 Tobacco use type Cigarette 01/12/25 13:19 PHQ-9: PHQ-9 Score PHQ-9: Total score 10 01/12/25 14:07 Thrive Assessment: Date of Thrive Assessment Date Thrive assessed 01/12/25 01/12/25 13:36 Coding Level of Care Code New Pt Level 4 (82792) Complex EM visit Add On G2211 Diagnoses Cellulitis of left lower extremity L03.116 Lymphedema I89.0 Persistent atrial fibrillation I48.19 Hypertension I10 Multiple sclerosis G35 Chronic venous stasis dermatitis I87.2 Assessment & Plan Assessment & Plan (1) Cellulitis of left lower extremity: Code(s): L03.116 - Cellulitis of left lower limb Category: Medical Plan: Secondary to chronic venous stasis/poorly managed lymphedema. Given extent of cellulitis and purulence, referred to the ED for further evaluation and management as it is unlikely oral antibiotics will eradicate infection and IV antibiotics are suspected to be needed. Doubt sepsis at this time. Discussed with ed provider. Follow up after discharge (2) Lymphedema: Code(s): I89.0 - Lymphedema, not elsewhere classified Category: Medical Plan: Poorly managed. Plan as above. Will likely to need close follow up with wound center/lymphedema clinic following discharge as well as compliance with diuretics (3) Persistent atrial fibrillation: Code(s): I48.19 - Other persistent atrial fibrillation Category: Medical Plan: Rate controlled. Continue eliquis for ac, atenolol for rate, and dig as well. (4) Hypertension: Code(s): I10 - Essential (primary) hypertension Category: Medical Plan: Controlled in office. Continue current antihypertensive therapy (5) Multiple sclerosis: Code(s): G35 - Multiple sclerosis Category: Medical Plan: Stable. Continue walker for gait assistance (6) Chronic venous stasis dermatitis: Code(s): I87.2 - Venous insufficiency (chronic) (peripheral) Category: Medical Plan: Diuretics. Plan as above Plan Follow up following discharge. Due for mammo, colonoscopy, and dexa but unfortunately not discussed due to patient's acute issues requiring transfer to ed for evaluation. Will discuss at next visit.
[2025-01-12 13:15] VITALS: BP 126/74; PULSE 97; RESP 18; TEMP 36.4; O2SAT 98; BMI 48.3
== END 2025-01-12 13:34 | disposition home or self-care (01) ==
LOC: HO.HMCHD 13:03
PROVIDERS: PCP Physician Assistant; Visit Provider Physician Assistant
DX: L03.116 Cellulitis of left lower limb (principal); I89.0 Lymphedema, not elsewhere classified; I48.19 Other persistent atrial fibrillation; I10 Essential (primary) hypertension; G35 Multiple sclerosis; I87.2 Venous insufficiency (chronic) (peripheral)

== ENCOUNTER → 2025-01-12 13:03 | Outpatient (BNVA) | payer MEDICARE, MEDICAID, SELFPAY | PROVIDERS: PCP Physician Assistant; Visit Provider Physician Assistant | DX: L03.116 Cellulitis of left lower limb (principal); I89.0 Lymphedema, not elsewhere classified; I48.19 Other persistent atrial fibrillation; I10 Essential (primary) hypertension; G35 Multiple sclerosis; I87.2 Venous insufficiency (chronic) (peripheral); Z79.01 Long term (current) use of anticoagulants; Z79.899 Other long term (current) drug therapy | CPT/HCPCS: 96127; 99202 ==

== ENCOUNTER 2025-01-12 13:47 | Inpatient (IN) | payer MEDICARE, MEDICAID, SELFPAY ==
--- NOTE | ~2025-01-12 | US_ITS ---
CLINICAL HISTORY: swelling pain Venous duplex ultrasound bilateral lower extremity Comparison: None provided Findings: Limited study due to body habitus and soft tissue swelling. Calf veins are not seen. Multiple prominent lymph nodes are noted within the groin however, appears reniform. The visualized deep veins are fully compressible with normal Doppler color flow and spectral tracings. No popliteal cyst. IMPRESSION: 1. Negative for bilateral lower extremity deep vein thrombosis within the limitation of the study. This document has been electronically signed by: Karena Haywood MD on 01/12/2025 19:20:22
--- NOTE | ~2025-01-12 | CT_ITS ---
CLINICAL HISTORY: infection osteo SC abscess CT left lower extremity with contrast Comparison: US - US VENOUS DUPLEX LE BI - 01/12/25 18:26 EDT Findings: Diffuse extensive skin thickening, subcutaneous and soft tissue swelling. No drainable fluid collection erosive or sclerotic osseous changes. No abnormal enhancement or mass lesions. IMPRESSION: Diffuse extensive skin thickening, subcutaneous and soft tissue swelling concerning for cellulitis. No evidence of abscess or osteomyelitis. This document has been electronically signed by: Karena Haywood MD on 01/12/2025 20:45:43
[2025-01-12 14:17] VITALS: BP 140/60; PULSE 88; RESP 18; TEMP 36.6; O2SAT 97; BMI 44.3
--- NOTE | 2025-01-12 14:22 | ED.GENADULT ---
HPI - General Adult General Chief complaint: Wound/Laceration Stated complaint: Left Leg Leaking Time Seen by Provider: 01/12/25 17:52 Source: patient Limitations: no limitations History of Present Illness ED Provider: Radha Wright PA-C HPI narrative: 69-year-old female with a history of morbid obesity, severe bilateral venous stasis dermatitis, underlying gait instability who uses a walker to ambulate, hypertension, AFib on Eliquis, MS who presents with concern for left lower extremity infection. Patient states over the past week, she has had increased pain in the left lower extremity with worsening redness, and foul smelling drainage seeping from some of her chronic ulcerations. Denies fever. Patient has not followed by wound care. Related Data Home Medications ?Medication ?Instructions ?Recorded ?Confirmed acetaminophen 325 mg tablet 650 mg PO TID 06/01/22 11/10/24 tramadol 50 mg tablet 1 tab PO Q6H PRN Pain 06/01/22 11/10/24 citalopram 20 mg tablet 20 mg PO DAILY 08/13/22 11/10/24 digoxin 125 mcg (0.125 mg) tablet 0.125 mg PO DAILY 08/13/22 11/10/24 famotidine 20 mg tablet 20 mg PO DAILY 08/13/22 11/10/24 tacrolimus 0.1 % topical ointment 1 appl topical BID PRN Rash 12/10/22 11/10/24 aspirin 81 mg tablet,delayed 81 mg PO DAILY 05/26/24 11/10/24 release atenolol 25 mg tablet 25 mg PO DAILY 05/26/24 11/10/24 dextran 70-hypromellose eye drops 1 drp ophthalmic (eye) BID 05/26/24 11/10/24 in a dropperette (Artificial Tears (PF) drops in a dropperette) furosemide 40 mg tablet 40 mg PO DAILY 05/26/24 11/10/24 polyethylene glycol 3350 17 17 g PO DAILY 05/26/24 11/10/24 gram/dose oral powder (Miralax) sennosides 8.6 mg tablet (senna) 8.6 mg PO DAILY PRN Constipation 05/26/24 11/10/24 nystatin 100,000 unit/gram topical 1 appl topical BID PRN Rash 11/10/24 11/10/24 powder Previous Rx's ?Medication ?Instructions ?Recorded apixaban 5 mg tablet (Eliquis) 5 mg PO BID #60 tabs 06/04/22 amoxicillin 875 mg-potassium 1 tab PO Q12H 7 days #14 tabs 11/13/24 clavulanate 125 mg tablet doxycycline hyclate 100 mg tablet 100 mg PO BID 7 days #14 tabs 11/13/24 oxycodone 5 mg tablet 5 mg PO Q6H PRN pain #10 tabs 11/13/24 hydrochlorothiazide 25 mg tablet 25 mg PO DAILY #90 tabs 12/26/24 Allergies Allergy/AdvReac Type Severity Reaction Status Date / Time codeine [Codeine] Allergy Mild ITCH Verified 01/12/25 14:21 lisinopril [Lisinopril] Allergy Unknown VOMITING Verified 01/12/25 14:21 Review of Systems Review of Systems: Yes all other systems are reviewed and are negative Constitutional: Constitutional: Denies fatigue and Denies fever(s) Cardiovascular: Cardiovascular: Denies chest pain and Denies dyspnea Respiratory: Respiratory: Denies dyspnea Gastrointestinal: Gastrointestinal: Denies abdominal pain Musculoskeletal: Musculoskeletal: Reports arthralgias and Reports joint swelling Integumentary/Breasts: Skin/Breast: Reports erythema, Reports skin ulcer, Reports sores and Reports wounds Endocrine: Endocrine: Denies fatigue PMFSH Past Medical History Attestation statement: The following information was validated with the patient. Medical History (Updated 01/12/25 @ 22:33 by Flori Brown PA-C) Morbid obesity Persistent atrial fibrillation Hypertension Lymphedema Varicose veins of left lower extremity with inflammation Seroma Chronic acquired lymphedema Multiple sclerosis Afib Atrial fibrillation Surgical History No pertinent past surgical history Family History Family History Father No problems noted. Mother No problems noted. Other No family history of coronary artery disease Social History Social History Household Members: Other Household Members Other:: patient has her own room in an assisted living facility Housing: Assisted Living Facility Do you presently have visiting nurse or other home services: No Patient Tobacco Use Status: Former Tobacco user Tobacco use type: Cigarette Cigarettes Per Day: 30 Years Smoked: 25 Second Hand Smoke Exposure: No Advance Directives: No Advance Directives Information Provided: No Do you have a plan to hurt others: No Plan service: No Current occupational status: retired Physical Exam ED Vital Signs: Vital Signs - 24 hr 01/12/25 14:17 01/12/25 18:53 01/12/25 21:31 Temperature 97.9 F 97.5 F 97.4 F Pulse Rate 88 87 78 Respiratory Rate 18 20 14 Blood Pressure 140/60 H 161/74 H 169/99 H Pulse Oximetry 97 100 97 Oxygen Delivery Method Room Air Room Air Room Air BMI result Body Mass Index 44.3 Const Other: Awake, ill-appearing Orientation/consciousness: patient oriented x3 Resp Effort & Inspection: normal respiratory effort Cardio Other: Pitting edema, warm and perfusing Skin Other: Warm dry no rash Neuro General: patient oriented x3, no focal motor deficits and CN's II-XI intact bilaterally Extrem Other: Psych Other: Cooperative Course Course Course Narrative: RME, this is a rapid medical exam performed by Gorge Anaya please refer to primary provider for complete H&P- 69-year-old female presents for evaluation of left leg pain, swelling and redness. She has had foul-smelling drainage from the left leg for a long time, more than a few weeks plan for labs, blood cultures. She was sent from urgent care due to worsening cellulitis Medications Administered Generic Name Dose Route Start Last Admin Trade Name Freq PRN Reason Stop Dose Admin Oxycodone HCl 5 mg 01/12/25 22:39 01/12/25 23:08 Oxycodone Hcl Immed Release 5 Mg Tablet PO 5 mg Q6H PRN Administration Pain, Moderate(Pain Scale 4-6) Discontinued Medications Generic Name Dose Route Start Last Admin Trade Name Freq PRN Reason Stop Dose Admin Piperacillin Sod/Tazobactam 50 mls @ 100 mls/hr 01/12/25 18:01 01/12/25 19:31 Sod 3.375 gm/ Sodium Chloride IV 01/12/25 18:30 Infused ONCE ONE Infusion Sodium Chloride 500 mls @ 500 mls/hr 01/12/25 18:01 01/12/25 19:31 Ns IV 01/12/25 19:00 Infused .Q1H ONE Infusion Vancomycin HCl 1,500 mg/ 500 mls @ 333.333 mls/hr 01/12/25 20:48 01/12/25 23:07 Sodium Chloride IV 01/12/25 22:17 Infused ONCE ONE Infusion Iohexol 85 ml 01/12/25 19:21 01/12/25 19:22 Iohexol 350 Mg/Ml 100 Ml Infus..Btl IV 01/12/25 19:22 85 ml ONCE ONE Administration Medical Decision Making Medical Decision Making MDM Narrative: 69-year-old female with a history of morbid obesity, severe bilateral venous stasis dermatitis, underlying gait instability who uses a walker to ambulate, hypertension, AFib on Eliquis, MS who presents with concern for left lower extremity infection. Patient states over the past week, she has had increased pain in the left lower extremity with worsening redness, and foul smelling drainage seeping from some of her chronic ulcerations. Denies fever. Patient has not followed by wound care. Problem: Morbid obesity, chronic venous stasis dermatitis History: Per patient I have considered the following differential diagnoses: Cellulitis, purulent cellulitis, abscess, osteomyelitis, DVT Plan: Patient clearly has purulent cellulitis, I will be obtaining advanced imaging to rule out the presence of an abscess and/or osteomyelitis. We will be adding blood cultures and a lactic, not for sepsis, but because the patient will be receiving IV antibiotics. We will also rule out DVT, ordering bilateral Doppler studies. We will add inflammatory markers to her screening labs. I have independently reviewed the following tests: Labs: Leukocytosis, with left shift, not anemic, no electrolyte abnormality, lactic 1.8, both ESR and CRP are elevated Bilateral DVT studies:MPRESSION: 1. Negative for bilateral lower extremity deep vein thrombosis within the limitation of the study. CT left lower extremity Findings: Diffuse extensive skin thickening, subcutaneous and soft tissue swelling. No drainable fluid collection erosive or sclerotic osseous changes. No abnormal enhancement or mass lesions. IMPRESSION: Diffuse extensive skin thickening, subcutaneous and soft tissue swelling concerning for cellulitis. No evidence of abscess or osteomyelitis. Lab Data 01/12/25 14:39 01/12/25 14:39 Labs: Lab Results 01/12/25 01/12/25 Range/Units 14:39 18:23 WBC 14.1 H (4.8-10.8) X10*3/uL RBC 4.42 (4.20-5.50) X10*6/uL Hgb 11.7 L (12.0-16.0) g/dl Hct 36.1 L (37.0-47.0) % MCV 81.7 (80.0-98.0) fL MCH 26.5 L (27.0-33.0) pg MCHC 32.4 (31.0-35.0) g/dl RDW 14.9 (11.0-16.0) % Plt Count 478 H (160-400) X10*3/uL MPV 10.2 (9.4-12.3) fL Immature Gran % (Auto) 0.8 H (0.0-0.4) % Neut % (Auto) 80.2 H (45-73) % Lymph % (Auto) 8.7 L (20-40) % [place] % (Auto) 7.8 (2-11) % Eos % (Auto) 1.8 (0-4) % Baso % (Auto) 0.7 (0-2) % Lymph # (Auto) 1.2 (1.2-4.9) X10*3/uL [place] # (Auto) 1.1 (0.1-1.2) X10*3/uL Eos # (Auto) 0.3 (0.0-0.4) X10*3/uL Baso # (Auto) 0.1 (0.0-0.2) X10*3/uL Abs Immat Gran (auto) 0.11 H (0.00-0.03) X10*3/uL Absolute Neuts (auto) 11.3 H (2.0-8.3) x10*3/uL Absolute Nucleated RBC 0.000 (0.0-0.012) X10*3/uL Nucleated RBC % (auto) 0.0 (0.0-0.2) /100WBC Smear Tech's Comments VERIFIED ESR 53 H (0-20) MM/HR Sodium 138 (135-145) mmol/L Potassium 3.5 D (3.3-5.1) mmol/L Chloride 97 (96-108) mmol/L Carbon Dioxide 32 H (22-29) mmol/L Anion Gap 13 (12-20) BUN 14 (9-16) mg/dL Creatinine 0.77 (0.5-1.4) mg/dL Estim Creat Clear Calc 85.9 Estimated GFR > 60 Random Glucose 107 (60-115) mg/dL Lactic Acid 1.8 (0.5-2.0) mmol/L Calcium 9.9 D (8.4-10.2) mg/dL Magnesium 2.1 (1.6-2.6) mg/dL Total Bilirubin 0.5 (0.0-1.0) mg/dL AST 20 (5-31) U/L ALT 16 (0-31) U/L Alkaline Phosphatase 76 (39-117) U/L C-Reactive Protein 6.08 H (< or = 0.50) mg/dL Total Protein 7.7 (6.5-8.0) g/dL Albumin 4.3 (3.5-5.0) g/dL Lipase 32 (8-78) U/L Discharge Plan Discharge Clinical Impression: Acute bilateral venous stasis dermatitis, Cellulitis of left leg Patient Disposition: Admitted As Inpatient Print Language: Austrian
[2025-01-12 14:54] LABS: Basophils Absolute Auto 0.1 X10*3/uL (0.0-0.2); Basophils Percent Auto 0.7 % (0-2); Eosinophils Absolute Auto 0.3 X10*3/uL (0.0-0.4); Eosinophils Percent Auto 1.8 % (0-4); Hematocrit 36.1 % (37.0-47.0); Hemoglobin 11.7 g/dl (12.0-16.0); Imm Gran Abs Auto 0.11 X10*3/uL (0.00-0.03); Imm Gran Pct Auto 0.8 % (0.0-0.4); Lymphocytes Absolute Auto 1.2 X10*3/uL (1.2-4.9); Lymphocytes Percent Auto 8.7 % (20-40); MANUAL DIFF FLAG SCAN; Mean Corpuscular HGB Conc 32.4 g/dl (31.0-35.0); Mean Corpuscular Hemoglobin 26.5 pg (27.0-33.0); Mean Corpuscular Volume 81.7 fL (80.0-98.0); Monocytes Absolute Auto 1.1 X10*3/uL (0.1-1.2); Monocytes Percent Auto 7.8 % (2-11); Neutrophils Absolute Auto 11.3 x10*3/uL (2.0-8.3); Neutrophils Percent Auto 80.2 % (45-73); PLT CLUMP 1; Red Blood Count 4.42 X10*6/uL (4.20-5.50); Red Cell Distribution Width 14.9 % (11.0-16.0); SCAN SMEAR FLAG 1
[2025-01-12 15:01] LABS: Lactic Acid 1.8 mmol/L (0.5-2.0)
[2025-01-12 15:02] LABS: Alanine Aminotransferase 16 U/L (0-31); Albumin Level 4.3 g/dL (3.5-5.0); Alkaline Phosphatase 76 U/L (39-117); Anion Gap 13 (12-20); Aspartate Amino Transferase 20 U/L (5-31); Bilirubin Total 0.5 mg/dL (0.0-1.0); Blood Urea Nitrogen 14 mg/dL (9-16); Calcium 9.9 mg/dL (8.4-10.2); Carbon Dioxide 32 mmol/L (22-29); Chloride 97 mmol/L (96-108); Creatinine Clr Calc Pharmacy 85.9; Estimated Glomerular Filt Rate > 60; Glucose Random 107 mg/dL (60-115); Lipase 32 U/L (8-78); Potassium 3.5 mmol/L (3.3-5.1); Sodium 138 mmol/L (135-145); Total Protein 7.7 g/dL (6.5-8.0)
[2025-01-12 15:10] LABS: Mean Platelet Volume 10.2 fL (9.4-12.3); White Blood Count 14.1 X10*3/uL (4.8-10.8)
[2025-01-12 15:11] LABS: Platelet Count 478 X10*3/uL (160-400); SLIDE REVIEW VERIFIED
[2025-01-12] MEDS: 0.9 % Sodium Chloride 500 ML IV (18:29)
[2025-01-12 18:43] LABS: C Reactive Protein 6.08 mg/dL (< or = 0.50); Magnesium 2.1 mg/dL (1.6-2.6)
[2025-01-12] MEDS: Piperacillin Sodium/Tazobactam 3.375 GM in 0.9 % Sodium Chloride 50 ML IV (18:44)
--- NOTE | 2025-01-12 18:47 | PC.NURSE ---
Addendum entered by Fiona Mcconnell RN 01/12/25 18:49: Patient is a 69 yo female who is morbidly obese with PMH of afib on eliquis, HTN, lymphema and chronic venous stasis wounds. Patient resides at a local assisted living. She has chronic leg wounds and weeping and her LONG TERM only has VNA once a week. She denies fevers, change in the wounds. Patient presents with chronic LE wounds secondary to lymphadema. Positive swelling, thick, reddened skin with some open area with assoc foul odor and pain. Respirations even and non-labored. Abdomen large, soft, non-tender with positive bowel sounds. U/S at the bedside. Original Note: Medical History Varicose veins of left lower extremity with inflammation Lymphedema Seroma Persistent atrial fibrillation Chronic acquired lymphedema Multiple sclerosis Afib Atrial fibrillation Hypertension Lymphadema
[2025-01-12 18:53] VITALS: BP 161/74; PULSE 87; RESP 20; TEMP 36.4; O2SAT 100
[2025-01-12 19:14] LABS: Erythrocyte Sedimentation Rate 53 MM/HR (0-20)
[2025-01-12] MEDS: iohexoL 350 MG/ML 100 ML INFUS..BTL 85 ML IV (19:22)
[2025-01-12] MEDS: vancomycin HCL 1,500 MG in 0.9 % Sodium Chloride 500 ML 333.33 MG IV (21:12)
[2025-01-12 21:31] VITALS: BP 169/99; PULSE 78; RESP 14; TEMP 36.3; O2SAT 97
--- NOTE | 2025-01-12 22:29 | PM.IMHP ---
History of Present Illness Date of Service: 01/12/25 Attending physician on admission: Lamonte Herring Chief Complaint: Lower extremity infection Patient is a 69-year-old female with a past medical history significant for morbid obesity, bilateral venous stasis dermatitis, gait instability secondary to MS using a walker, hypertension and paroxysmal AFib on Eliquis, who presented to the ED due to increased pain, erythema and foul drainage from her lower extremity wounds for the past week. Patient reports that she does pick at her wounds. She does not seen wound care but has had these chronic ulcers on her lower legs. She reports that they are seeping. She denies any fever, chills, nausea or vomiting. No chest pain, shortness of breath or urinary symptoms. Review of Systems Constitutional: Constitutional: Denies chills, Denies fatigue, Denies fever(s) and Denies headache(s) Eyes: Eyes: Denies change in vision and Denies photophobia ENT: Denies headache(s), Denies nasal discharge and Denies sore throat Cardiovascular: Cardiovascular: Denies chest pain, Denies rapid heart rate, Reports leg edema, Denies lightheadedness and Denies dyspnea Respiratory: Respiratory: Denies chest congestion, Denies cough, Denies dyspnea and Denies wheezing Gastrointestinal: Gastrointestinal: Denies abdominal pain, Denies diarrhea, Denies nausea and Denies vomiting Genitourinary: Genitourinary: Denies difficulty voiding, Denies dysuria and Denies urinary urgency Musculoskeletal: Musculoskeletal: Denies back pain Integumentary/Breasts: Skin/Breast: Reports as per HPI Neurologic: Denies confusion and Denies headache(s) Psychiatric: Psychiatric: Denies confusion Endocrine: Endocrine: Denies fatigue Hematologic/Lymphatic: Hematologic/Lymphatic: Denies easy bleeding and Denies easy bruising Allergic/Immunologic: Allergic/Immunologic: Denies wheezing [facility] Medical History (Updated 01/12/25 @ 22:33 by Flori Brown PA-C) Morbid obesity Persistent atrial fibrillation Hypertension Lymphedema Varicose veins of left lower extremity with inflammation Seroma Chronic acquired lymphedema Multiple sclerosis Afib Atrial fibrillation Functional capacity: uses cane/walker Family History Father No problems noted. Mother No problems noted. Other No family history of coronary artery disease Surgical History No pertinent past surgical history Social History Household Members: Other Household Members Other:: patient has her own room in an assisted living facility Housing: Assisted Living Facility Do you presently have visiting nurse or other home services: No Patient Tobacco Use Status: Former Tobacco user Tobacco use type: Cigarette Cigarettes Per Day: 30 Years Smoked: 25 Second Hand Smoke Exposure: No Advance Directives: No Advance Directives Information Provided: No Do you have a plan to hurt others: No Plan service: No Current occupational status: retired Narrative: No tobacco use or alcohol use Meds Allergies Allergy/AdvReac Type Severity Reaction Status Date / Time codeine (Codeine) Allergy Mild ITCH Verified 01/12/25 14:21 lisinopril (Lisinopril) Allergy Unknown VOMITING Verified 01/12/25 14:21 Home Medications ?Medication ?Instructions ?Recorded ?Confirmed ?Last Taken ?Type acetaminophen 325 mg tablet 650 mg PO TID 06/01/22 11/10/24 11/09/24 History tramadol 50 mg tablet 1 tab PO Q6H PRN Pain 06/01/22 11/10/24 11/09/24 History Held on 11/13/24. Instructions: hold while receiving oxy. can resume as indicated citalopram 20 mg tablet 20 mg PO DAILY 08/13/22 11/10/24 11/09/24 History digoxin 125 mcg (0.125 mg) tablet 0.125 mg PO DAILY 08/13/22 11/10/24 11/09/24 History famotidine 20 mg tablet 20 mg PO DAILY 08/13/22 11/10/24 11/09/24 History tacrolimus 0.1 % topical ointment 1 appl topical BID PRN Rash 12/10/22 11/10/24 11/09/24 History aspirin 81 mg tablet,delayed 81 mg PO DAILY 05/26/24 11/10/24 11/09/24 History release atenolol 25 mg tablet 25 mg PO DAILY 05/26/24 11/10/24 11/09/24 History dextran 70-hypromellose eye drops 1 drp ophthalmic (eye) BID 05/26/24 11/10/24 11/09/24 History in a dropperette (Artificial Tears (PF) drops in a dropperette) furosemide 40 mg tablet 40 mg PO DAILY 05/26/24 11/10/24 11/09/24 History polyethylene glycol 3350 17 17 g PO DAILY 05/26/24 11/10/24 11/09/24 History gram/dose oral powder (Miralax) sennosides 8.6 mg tablet (senna) 8.6 mg PO DAILY PRN Constipation 05/26/24 11/10/24 11/09/24 History nystatin 100,000 unit/gram topical 1 appl topical BID PRN Rash 11/10/24 11/10/24 Unknown History powder Physical Exam Vital Signs and Narrative: Vital Signs: Last Vital Signs Temp 97.4 F 01/12/25 21:31 Pulse 78 01/12/25 21:31 Resp 14 01/12/25 21:31 BP 169/99 H 01/12/25 21:31 Pulse Ox 97 01/12/25 21:31 O2 Del Method Room Air 01/12/25 21:31 BMI result Body Mass Index 44.3 General: AOx3, no acute distress Resp: CTA bilaterally CVS: S1, S2, RRR GI: +BS, NT, no distention Skin: Warm, dry. increased warmth LLE, purulent drainage in skin folds, erythematous. erythema RLE without increased warmth or purulent drainage Neuro: Cranial nerves II-XII grossly intact bilaterally. Motor grossly intact bilaterally Extremities: see photos, no pitting edema Psych: Appropriate affect Const: General: No confusion Orientation/consciousness: No confusion Eyes: Direct Ophthalmoscopy: No photophobia Neuro: General: No confusion Results Labs 01/13/25 04:33 01/13/25 04:33 Labs: Laboratory Results - last 24 hr 01/12/25 01/12/25 14:39 18:23 MCV 81.7 MCH 26.5 L MCHC 32.4 RDW 14.9 Plt Count 478 H MPV 10.2 Immature Gran % (Auto) 0.8 H Neut % (Auto) 80.2 H Lymph % (Auto) 8.7 L [place] % (Auto) 7.8 Eos % (Auto) 1.8 Baso % (Auto) 0.7 Lymph # (Auto) 1.2 [place] # (Auto) 1.1 Eos # (Auto) 0.3 Baso # (Auto) 0.1 Abs Immat Gran (auto) 0.11 H Absolute Neuts (auto) 11.3 H Absolute Nucleated RBC 0.000 Nucleated RBC % (auto) 0.0 Smear Tech's Comments VERIFIED ESR 53 H Anion Gap 13 Estim Creat Clear Calc 85.9 Estimated GFR > 60 Random Glucose 107 Lactic Acid 1.8 Calcium 9.9 D Magnesium 2.1 Total Bilirubin 0.5 AST 20 ALT 16 Alkaline Phosphatase 76 C-Reactive Protein 6.08 H Total Protein 7.7 Albumin 4.3 Lipase 32 Assessment and Plan (1) Cellulitis of left lower extremity: Status: Acute (2) Chronic venous stasis dermatitis: Status: Acute (3) Morbid obesity: Status: Chronic Plan Patient is a 69-year-old female with a past medical history significant for morbid obesity, bilateral venous stasis dermatitis, gait instability secondary to MS using a walker, hypertension and persistent AFib on Eliquis, who presented to the ED due to increased pain, erythema and foul drainage from her lower extremity wounds for the past week. Chronic venous stasis dermatitis bilateral lower extremities with superimposed cellulitis left lower extremity - WBC 14.1, vital signs stable, lactic acid normal, blood cultures x2 pending, no sepsis - CRP elevated at 6.08, ESR 53 - bilateral venous ultrasound negative for DVT - left lower extremity CT negative for osteomyelitis but does show soft tissue swelling consistent with cellulitis - started on vancomycin and Zosyn in ED, continue - follow CBC and BMP MS - continue meds Hypertension - continue home meds Persistent AFib - continue home meds Morbid obesity - BMI 44.3 - weight loss encouraged Full code VTE prophylaxis: Eliquis Patient with chronic venous stasis dermatitis with superimposed cellulitis left lower extremity, requiring admission for at least 2 midnights stay for IV antibiotics and monitoring. Quality Stroke Does the patient have a stroke diagnosis?: No VTE Prior VTE?: No VTE Risk Level:: Medical - moderate - high VTE Device Contraindication: Treatment Not Indicated VTE Drug Contraindication: N/A - Med Ordered
--- NOTE | 2025-01-12 22:53 | PHA.PROG ---
Admission Date/Time: Indication: SKIN Weight in k.398 kg Adjusted body weight in Kg: [place] body weight in Kg: Obesity Dosing Indication % IBW: Serum Creatinine - Last 168 Hours 01/12/25 14:39 Creatinine 0.77 Estimated CrCl and GFR - Last 168 Hours 01/12/25 14:39 Estim Creat Clear Calc 85.9 Estimated GFR > 60 Vancomycin Loading Dose: 1500 MG + 500 MG Current Vancomycin Dosing Regimen: 750 MG Q12H Vancomycin Monitoring using AUC goal of 400 - 600 range with trough as surrogate marker: TEH=892 TROUGH=14.1 Date and Time for next Vancomycin Level to be drawn: 01/13/25 @1999 Pharmacist Comments on Vancomycin Plan: Vancomycin dosing will take advantage of [employer] as a clinical decision support tool that uses Bayesian modeling to calculate individual patient's pharmacokinetic parameters and forecast the patient's drug concentration time course with the target goal AUC 24 range of 400 - 600 mg/L/hr.
[2025-01-12] MEDS: oxyCODONE HCl Immed Release 5 MG TABLET PO (23:08)
[2025-01-12] MEDS: vancomycin HCL 500 MG in 0.9 % Sodium Chloride 100 ML 110 MG IV (23:10)
[2025-01-13] VITALS (8 sets, daily range): BP systolic 114–188; BP diastolic 56–87; PULSE 81–97; RESP 18–20; TEMP 36.3–37.1; O2SAT 96–99
[2025-01-13] MEDS: 0.9 % Sodium Chloride Flush 3 ML SYRINGE IVFLUSH ×4 (00:05→20:01)
[2025-01-13] MEDS: Piperacillin Sodium/Tazobactam 3.375 GM in 0.9 % Sodium Chloride 50 ML IV ×4 (00:16→17:10)
[2025-01-13] MEDS: Morphine Sulfate 4 MG/ML CARTRIDGE 2 MG IVPUSH ×4 (01:06→19:59)
[2025-01-13] MEDS: diazePAM 10 MG/2 ML CARTRIDGE 2.5 MG IVPUSH (01:59)
[2025-01-13 06:06] LABS: Estimated Average Glucose 120 mg/dL; Hemoglobin A1c % 5.8 % (<6.0)
[2025-01-13 06:24] LABS: Erythrocyte Sedimentation Rate 39 MM/HR (0-20)
[2025-01-13 06:27] LABS: Basophils Absolute Auto 0.1 X10*3/uL (0.0-0.2); Basophils Percent Auto 0.7 % (0-2); Eosinophils Absolute Auto 0.2 X10*3/uL (0.0-0.4); Eosinophils Percent Auto 1.3 % (0-4); Hematocrit 34.6 % (37.0-47.0); Hemoglobin 10.5 g/dl (12.0-16.0); Imm Gran Abs Auto 0.08 X10*3/uL (0.00-0.03); Imm Gran Pct Auto 0.5 % (0.0-0.4); Lymphocytes Absolute Auto 0.8 X10*3/uL (1.2-4.9); Lymphocytes Percent Auto 5.1 % (20-40); MANUAL DIFF FLAG SCAN; Mean Corpuscular HGB Conc 30.3 g/dl (31.0-35.0); Mean Corpuscular Hemoglobin 25.8 pg (27.0-33.0); Mean Platelet Volume 10.5 fL (9.4-12.3); Monocytes Absolute Auto 1.6 X10*3/uL (0.1-1.2); Monocytes Percent Auto 9.9 % (2-11); Neutrophils Absolute Auto 12.9 x10*3/uL (2.0-8.3); Neutrophils Percent Auto 82.5 % (45-73); Platelet Count 424 X10*3/uL (160-400); Red Blood Count 4.07 X10*6/uL (4.20-5.50); SCAN SMEAR FLAG 1; White Blood Count 15.6 X10*3/uL (4.8-10.8)
[2025-01-13] MEDS: oxyCODONE HCl Immed Release 5 MG TABLET PO ×2 (06:31→14:37)
[2025-01-13 06:35] LABS: Anion Gap 12 (12-20); Blood Urea Nitrogen 11 mg/dL (9-16); C Reactive Protein 5.77 mg/dL (< or = 0.50); Calcium 8.7 mg/dL (8.4-10.2); Carbon Dioxide 27 mmol/L (22-29); Chloride 102 mmol/L (96-108); Creatinine Clr Calc Pharmacy 103.4; Estimated Glomerular Filt Rate > 60; Glucose Random 124 mg/dL (60-115); Potassium 3.6 mmol/L (3.3-5.1); Sodium 137 mmol/L (135-145)
--- NOTE | 2025-01-13 07:27 | PC.NURSE ---
69 F presents to ED with bilateral leg pain/wounds, worse on the left leg. A+Ox4. bilateral legs red with scabbing, worse on the left leg, appears as cellulitis. Pt sts she's had this going on for a while. Pt denies CP of SOB, RR even and unlabored. Lung sounds clear bilat. Pt complains of severe pain, ongoing. Pt medicated with morphine this morning for 8/10 pain.
[2025-01-13 07:42] LABS: SLIDE REVIEW VERIFIED
--- NOTE | 2025-01-13 10:12 | PHA.MEDREC ---
Addendum entered by Ara Rock RPh 01/13/25 10:18: Reviewed by [facility] Original Note: Pharmacy Consult ? Medication Reconciliation Pharmacy has completed the medication reconciliation. Utilized list from [facility] to confirm med rec.
[2025-01-13] MEDS: vancomycin HCL 750 MG in 0.9 % Sodium Chloride 250 ML 265 MG IV (10:32)
--- NOTE | 2025-01-13 10:34 | MHC.CM.PN ---
IMM 01/13/25, Pt. lives in [facility], PCP is Iéns Velasquez. HCP on file and confirmed, naming her sons, Oh and Luther. Pt said that she does not have any home health care, and there is a nurse at the [facility] if she needs her. Her sister will transport home at [place]. DCP: home with services, CM to follow for [place] needs.
--- NOTE | 2025-01-13 10:44 | P.PNIM_ITS ---
Subjective Subjective Date of Service: 01/13/25 Interval History: f/u on chronic venous stasis with superimposed cellulitis Physical Exam 2 Vital Signs: Vital Signs: vitals 01/13 reviewed Const: Other: General: AO X 3, no acute distress Resp: CTA bilateral CVS: S1,S2,RRR GI: +BS, NT, no distention Skin: see pic Neuro: motor grossly intact Psych: appropriate affect Extrem: Other: Objective Data Active Medications Acetaminophen (Acetaminophen 325 Mg Tablet) 975 mg PO Q6H PRN PRN Reason: Pain, Mild 1-3,fever,headache Apixaban (Apixaban 5 Mg Tablet) 5 mg PO BID TONG Artificial Tears (Artificial Tears 15 Ml Drops) 1 drop EYE-BOTH BID TONG Aspirin (Aspirin Enteric Coated 81 Mg Tablet.Dr) 81 mg PO DAILY TONG Atenolol (Atenolol 25 Mg Tablet) 25 mg PO DAILY TONG; Protocol Calcium Carbonate (Calcium Carbonate 750 Mg Tab.Chew) 750 mg PO Q4H PRN PRN Reason: Heartburn Digoxin (Digoxin 0.125 Mg Tablet) 0.125 mg PO DAILY TONG; Protocol Famotidine (Famotidine 20 Mg Tablet) 20 mg PO DAILY TONG Furosemide (Furosemide 40 Mg Tablet) 40 mg PO DAILY TONG; Protocol Hydrochlorothiazide (Hydrochlorothiazide 25 Mg Tablet) 25 mg PO DAILY TONG; Protocol Piperacillin Sod/Tazobactam (Sod 3.375 gm/ Sodium Chloride) 50 mls @ 100 mls/hr IV Q6H [facility] Last Infusion: 01/14/25 06:01 Dose: Infused Documented By: JOHNY Vancomycin HCl 1,000 mg/ (Sodium Chloride) 270 mls @ 270 mls/hr IV Q12H TONG Last Admin: 01/14/25 09:48 Dose: 270 mls/hr Documented By: VANIA Lactic Acid (Ammonium Lactate 12 % Cream 140 Gm Tube) 1 appl TOPICAL BEDTIME TONG; Protocol Magnesium Hydroxide (Milk Of Magnesia 30 Ml Oral.Susp) 30 ml PO DAILY PRN PRN Reason: Constipation Melatonin (Melatonin 3 Mg Tablet) 6 mg PO BEDTIME PRN PRN Reason: Insomnia Morphine Sulfate (Morphine Sulfate 4 Mg/Ml Cartridge) 2 mg IVPUSH Q4H PRN; Protocol PRN Reason: Pain, Severe (Pain Scale 7-10) Last Admin: 01/14/25 00:01 Dose: 2 mg Documented By: JOHNY Non-Formulary Medication (Citalopram) 20 mg PO DAILY [facility] Nystatin (Nystatin Powder 15 Gm Bottle) 1 appl TOPICAL BID PRN; Protocol PRN Reason: Rash Ondansetron HCl (Ondansetron Hcl 4 Mg/2 Ml Vial) 4 mg IVPUSH Q8H PRN PRN Reason: Nausea and Vomiting Oxycodone HCl (Oxycodone Hcl Immed Release 5 Mg Tablet) 5 mg PO Q6H PRN PRN Reason: Pain, Moderate(Pain Scale 4-6) Last Admin: 01/13/25 14:37 Dose: 5 mg Documented By: JAYDEN Oxycodone HCl (Oxycodone Hcl Immed Release 5 Mg Tablet) 5 mg PO Q6H PRN PRN Reason: Pain, Severe (Pain Scale 7-10) Pharmacy Consult (Consult Rx Vancomycin Dosing) 1 each MISCELLANE DAILY PRN PRN Reason: Consult order Polyethylene Glycol (Polyethylene Glycol 3350 17 Gm Powd.Pack) 17 gm PO DAILY [facility] Senna (Sennosides 8.6 Mg Tablet) 8.6 mg PO DAILY PRN PRN Reason: Constipation Sodium Chloride (0.9 % Sodium Chloride Flush 3 Ml Syringe) 3 ml IVFLUSH QSHIFT [facility] Last Admin: 01/14/25 08:08 Dose: 3 ml Documented By: VANIA Labs 01/14/25 06:00 01/14/25 06:00 Labs: Laboratory Results - last 24 hr 01/13/25 01/14/25 19:53 06:00 MCV 85.3 MCH 26.5 L MCHC 31.0 RDW 15.4 Plt Count 382 MPV 10.5 Immature Gran % (Auto) 0.7 H Neut % (Auto) 69.6 Lymph % (Auto) 12.3 L [place] % (Auto) 13.1 H Eos % (Auto) 3.5 Baso % (Auto) 0.8 Lymph # (Auto) 1.2 [place] # (Auto) 1.3 H Eos # (Auto) 0.3 Baso # (Auto) 0.1 Abs Immat Gran (auto) 0.07 H Absolute Neuts (auto) 6.8 Absolute Nucleated RBC 0.000 Nucleated RBC % (auto) 0.0 Anion Gap 11 L Estim Creat Clear Calc 106.7 Estimated GFR > 60 Random Glucose 91 Calcium 8.4 Random Vancomycin 8.9 L Microbiology Microbiology Results: Microbiology 01/12/25 18:23 Blood Culture - Preliminary Blood - Venous No growth after 24 hours. 01/12/25 14:39 Blood Culture - Preliminary Blood - Venous No growth after 24 hours. Assessment and Plan (1) Cellulitis of left lower extremity: Status: Acute (2) Cellulitis of left leg: Status: Acute Plan Patient is a 69-year-old female with a past medical history significant for morbid obesity, bilateral venous stasis dermatitis, gait instability secondary to MS using a walker, hypertension and persistent AFib on Eliquis, who presented to the ED due to increased pain, erythema and foul drainage from her lower extremity wounds for the past week. Chronic venous stasis dermatitis bilateral lower extremities with superimposed cellulitis left lower extremity WBC 14 US negative for DVT xray no oste Seen by wound care IV Abx for 1 more day MS - continue meds Hypertension - continue home meds Persistent AFib - continue home meds Morbid obesity - BMI 44.3 - weight loss encouraged Full code VTE prophylaxis: Eliquis Patient with chronic venous stasis dermatitis with superimposed cellulitis left lower extremity, requiring admission for at least 2 midnights stay for IV antibiotics and monitoring. late entry note for 01/13 Quality Stroke Does the patient have a stroke diagnosis?: No VTE Prior VTE?: No VTE Risk Level:: Medical - moderate - high VTE Device Contraindication: Treatment Not Indicated VTE Drug Contraindication: N/A - Med Ordered
[2025-01-13 20:17] LABS: Vancomycin Random 8.9 mcg/mL (15-20)
--- NOTE | 2025-01-13 20:25 | HE.PHANOTE ---
RE: VANCO DOSING Trough came back as 8.9 mg/L and renal function is stable. Dose is increased to 1000 mg q12h, next trough is scheduled for 01/14/25 @1999.
[2025-01-13] MEDS: vancomycin HCL 1,000 MG in 0.9 % Sodium Chloride 250 ML 270 MG IV (22:34)
[2025-01-14] MEDS: Morphine Sulfate 4 MG/ML CARTRIDGE 2 MG IVPUSH ×2 (00:01→10:45)
[2025-01-14] MEDS: Piperacillin Sodium/Tazobactam 3.375 GM in 0.9 % Sodium Chloride 50 ML IV ×5 (00:01→23:44)
[2025-01-14 03:24] VITALS: BP 123/57; PULSE 88; RESP 16; TEMP 36.7; O2SAT 94
[2025-01-14 06:18] LABS: MANUAL DIFF FLAG NO
[2025-01-14 06:36] LABS: Anion Gap 11 (12-20); Blood Urea Nitrogen 11 mg/dL (9-16); Calcium 8.4 mg/dL (8.4-10.2); Carbon Dioxide 28 mmol/L (22-29); Chloride 103 mmol/L (96-108); Creatinine Clr Calc Pharmacy 106.7; Estimated Glomerular Filt Rate > 60; Glucose Random 91 mg/dL (60-115); Potassium 3.6 mmol/L (3.3-5.1); Sodium 138 mmol/L (135-145)
[2025-01-14 06:39] LABS: Basophils Absolute Auto 0.1 X10*3/uL (0.0-0.2); Basophils Percent Auto 0.8 % (0-2); Eosinophils Absolute Auto 0.3 X10*3/uL (0.0-0.4); Eosinophils Percent Auto 3.5 % (0-4); Hematocrit 31.9 % (37.0-47.0); Hemoglobin 9.9 g/dl (12.0-16.0); Imm Gran Abs Auto 0.07 X10*3/uL (0.00-0.03); Imm Gran Pct Auto 0.7 % (0.0-0.4); Lymphocytes Absolute Auto 1.2 X10*3/uL (1.2-4.9); Lymphocytes Percent Auto 12.3 % (20-40); Mean Corpuscular Hemoglobin 26.5 pg (27.0-33.0); Mean Corpuscular Volume 85.3 fL (80.0-98.0); Mean Platelet Volume 10.5 fL (9.4-12.3); Monocytes Absolute Auto 1.3 X10*3/uL (0.1-1.2); Monocytes Percent Auto 13.1 % (2-11); Neutrophils Absolute Auto 6.8 x10*3/uL (2.0-8.3); Neutrophils Percent Auto 69.6 % (45-73); Platelet Count 382 X10*3/uL (160-400); Red Blood Count 3.74 X10*6/uL (4.20-5.50); Red Cell Distribution Width 15.4 % (11.0-16.0); White Blood Count 9.7 X10*3/uL (4.8-10.8)
[2025-01-14 07:23] VITALS: BP 132/67; PULSE 84; RESP 18; TEMP 36.8; O2SAT 96
[2025-01-14] MEDS: 0.9 % Sodium Chloride Flush 3 ML SYRINGE IVFLUSH ×3 (08:08→22:34)
[2025-01-14] MEDS: vancomycin HCL 1,000 MG in 0.9 % Sodium Chloride 250 ML 270 MG IV ×2 (09:48→22:30)
--- NOTE | 2025-01-14 10:57 | HO.PM.IMPN ---
Subjective Subjective Date of Service: 01/14/25 Interval History: Feeling better, leg is less red Physical Exam Vital Signs: Vital Signs: Last Vital Signs Temp 98.2 F 01/14/25 07:23 Pulse 84 01/14/25 07:23 Resp 18 01/14/25 07:23 BP 132/67 01/14/25 07:23 Pulse Ox 96 01/14/25 07:23 O2 Del Method Room Air 01/14/25 07:23 BMI result Body Mass Index 44.3 Const: Other: General: AO X 3, no acute distress Resp: CTA bilateral CVS: S1,S2,RRR GI: +BS, NT, no distention Skin: see pic Neuro: motor grossly intact Psych: appropriate affect Extrem: Other: 01/12 Objective Data Active Medications Acetaminophen (Acetaminophen 325 Mg Tablet) 975 mg PO Q6H PRN PRN Reason: Pain, Mild 1-3,fever,headache Apixaban (Apixaban 5 Mg Tablet) 5 mg PO BID TONG Artificial Tears (Artificial Tears 15 Ml Drops) 1 drop EYE-BOTH BID TONG Aspirin (Aspirin Enteric Coated 81 Mg Tablet.Dr) 81 mg PO DAILY TONG Atenolol (Atenolol 25 Mg Tablet) 25 mg PO DAILY TONG; Protocol Calcium Carbonate (Calcium Carbonate 750 Mg Tab.Chew) 750 mg PO Q4H PRN PRN Reason: Heartburn Digoxin (Digoxin 0.125 Mg Tablet) 0.125 mg PO DAILY TONG; Protocol Escitalopram Oxalate (Escitalopram Oxalate 10 Mg Tablet) 10 mg PO DAILY TONG Famotidine (Famotidine 20 Mg Tablet) 20 mg PO DAILY TONG Furosemide (Furosemide 40 Mg Tablet) 40 mg PO DAILY TONG; Protocol Hydrochlorothiazide (Hydrochlorothiazide 25 Mg Tablet) 25 mg PO DAILY TONG; Protocol Piperacillin Sod/Tazobactam (Sod 3.375 gm/ Sodium Chloride) 50 mls @ 100 mls/hr IV Q6H [facility] Last Infusion: 01/14/25 06:01 Dose: Infused Documented By: JOHNY Vancomycin HCl 1,000 mg/ (Sodium Chloride) 270 mls @ 270 mls/hr IV Q12H TONG Last Admin: 01/14/25 09:48 Dose: 270 mls/hr Documented By: VANIA Lactic Acid (Ammonium Lactate 12 % Cream 140 Gm Tube) 1 appl TOPICAL BEDTIME TONG; Protocol Magnesium Hydroxide (Milk Of Magnesia 30 Ml Oral.Susp) 30 ml PO DAILY PRN PRN Reason: Constipation Melatonin (Melatonin 3 Mg Tablet) 6 mg PO BEDTIME PRN PRN Reason: Insomnia Morphine Sulfate (Morphine Sulfate 4 Mg/Ml Cartridge) 2 mg IVPUSH Q4H PRN; Protocol PRN Reason: Pain, Severe (Pain Scale 7-10) Last Admin: 01/14/25 00:01 Dose: 2 mg Documented By: JOHNY Nystatin (Nystatin Powder 15 Gm Bottle) 1 appl TOPICAL BID PRN; Protocol PRN Reason: Rash Ondansetron HCl (Ondansetron Hcl 4 Mg/2 Ml Vial) 4 mg IVPUSH Q8H PRN PRN Reason: Nausea and Vomiting Oxycodone HCl (Oxycodone Hcl Immed Release 5 Mg Tablet) 5 mg PO Q6H PRN PRN Reason: Pain, Moderate(Pain Scale 4-6) Last Admin: 01/13/25 14:37 Dose: 5 mg Documented By: JAYDEN Oxycodone HCl (Oxycodone Hcl Immed Release 5 Mg Tablet) 5 mg PO Q6H PRN PRN Reason: Pain, Severe (Pain Scale 7-10) Pharmacy Consult (Consult Rx Vancomycin Dosing) 1 each MISCELLANE DAILY PRN PRN Reason: Consult order Polyethylene Glycol (Polyethylene Glycol 3350 17 Gm Powd.Pack) 17 gm PO DAILY TONG Senna (Sennosides 8.6 Mg Tablet) 8.6 mg PO DAILY PRN PRN Reason: Constipation Sodium Chloride (0.9 % Sodium Chloride Flush 3 Ml Syringe) 3 ml IVFLUSH QSHIFT [facility] Last Admin: 01/14/25 08:08 Dose: 3 ml Documented By: VANIA Labs 01/14/25 06:00 01/14/25 06:00 Labs: Laboratory Results - last 24 hr 01/13/25 01/14/25 19:53 06:00 MCV 85.3 MCH 26.5 L MCHC 31.0 RDW 15.4 Plt Count 382 MPV 10.5 Immature Gran % (Auto) 0.7 H Neut % (Auto) 69.6 Lymph % (Auto) 12.3 L [place] % (Auto) 13.1 H Eos % (Auto) 3.5 Baso % (Auto) 0.8 Lymph # (Auto) 1.2 [place] # (Auto) 1.3 H Eos # (Auto) 0.3 Baso # (Auto) 0.1 Abs Immat Gran (auto) 0.07 H Absolute Neuts (auto) 6.8 Absolute Nucleated RBC 0.000 Nucleated RBC % (auto) 0.0 Anion Gap 11 L Estim Creat Clear Calc 106.7 Estimated GFR > 60 Random Glucose 91 Calcium 8.4 Random Vancomycin 8.9 L Microbiology Microbiology Results: Microbiology 01/12/25 18:23 Blood Culture - Preliminary Blood - Venous No growth after 24 hours. 01/12/25 14:39 Blood Culture - Preliminary Blood - Venous No growth after 24 hours. Assessment and Plan (1) Cellulitis of left lower extremity: Status: Acute (2) Cellulitis of left leg: Status: Acute Plan Patient is a 69-year-old female with a past medical history significant for morbid obesity, bilateral venous stasis dermatitis, gait instability secondary to MS using a walker, hypertension and persistent AFib on Eliquis, who presented to the ED due to increased pain, erythema and foul drainage from her lower extremity wounds for the past week. Chronic venous stasis dermatitis bilateral lower extremities with superimposed cellulitis left lower extremity WBC is normal now US negative for DVT xray no oste Seen by wound care IV Abx for 1 more day MS - continue meds Hypertension - continue home meds Persistent AFib - continue home meds Morbid obesity - BMI 44.3 - weight loss encouraged Full code VTE prophylaxis: Eliquis Patient with chronic venous stasis dermatitis with superimposed cellulitis left lower extremity, requiring admission for at least 2 midnights stay for IV antibiotics and monitoring. late entry note for 01/13 Quality Stroke Does the patient have a stroke diagnosis?: No VTE Prior VTE?: No VTE Risk Level:: Medical - moderate - high VTE Device Contraindication: Treatment Not Indicated VTE Drug Contraindication: N/A - Med Ordered
[2025-01-14 11:11] VITALS: BP 132/67; PULSE 84
[2025-01-14] MEDS: atenoloL 25 MG TABLET PO (11:11)
[2025-01-14] MEDS: Escitalopram Oxalate 10 MG TABLET PO (11:11)
[2025-01-14] MEDS: Aspirin Enteric Coated 81 MG TABLET.DR PO (11:11)
[2025-01-14] MEDS: Furosemide 40 MG TABLET PO (11:11)
[2025-01-14 11:12] VITALS: BP 132/67
[2025-01-14] MEDS: Digoxin 0.125 MG TABLET PO (11:12)
[2025-01-14] MEDS: Apixaban 5 MG TABLET PO ×2 (11:12→21:09)
[2025-01-14] MEDS: Famotidine 20 MG TABLET PO (11:12)
[2025-01-14] MEDS: hydroCHLOROthiazide 25 MG TABLET PO (11:12)
[2025-01-14] MEDS: oxyCODONE HCl Immed Release 5 MG TABLET PO (14:33)
[2025-01-14] MEDS: Artificial Tears 15 ML DROPS 1 DROP EYE-BOTH ×2 (14:35→21:11)
[2025-01-14 14:50] LABS: Appearance Urine Clear; Color Urine Yellow; Glucose Urine UA Negative (Negative); Leukocyte Esterase Urine Negative (Negative); Nitrite Urine Negative (Negative); Urine Blood Negative (Negative); Urine Ketones Negative (Negative); Urine Protein Negative (Neg-Trace)
[2025-01-14 14:52] LABS: Bacteria Urine None Seen (None Seen); Hyaline Casts Urine 0-2 /LPF (0-2); RBC Urine 0-2 /HPF (0-2); Squamous Epithelial Cell Urine 0-2 /HPF (0-2); WBC Urine 0-5 /HPF (0-5)
[2025-01-14 16:00] VITALS: BP 133/61; PULSE 80; RESP 18; TEMP 36.7
[2025-01-14] MEDS: Acetaminophen 325 MG TABLET 975 MG PO (16:19)
--- NOTE | 2025-01-14 17:41 | HO.WOUND ---
Wound Consult: Initial 69yr old? female admitted to [facility] on 01/12/25 - See progress notes and H&P for detailed history.? Wound consult placed for Bilateral Legs.? Patient agreeable to assessment and photo documentation.? Bilateral Heels noted for redness and remain intact and blanchable - recommend preventative measures off load. Left Leg - scattered open areas red clean partial thickness tissue loss Bilateral Lower Legs Etiology: ?Venous Dermatitis and suspected lymphedema Wound Bed: scattered open partial thickness tissue loss noted ot leg leg - dry red hyperpigmentation dry desquamation Drainage / Odor: scant clear Goals of Treatment: ?Dermacin cream application per provider order - cover open wound bed with Durafiber AG with dry ABD pad and Eleastic netting elevate off of bed or recliner surface with pillows. Recommendations: 1. Turn and Reposition every 2 hours and as needed for patient comfort.? Use pillows or wedges to support off loading positions. 2. Off Load all bony prominences with use of pillows and heel boots if needed.? Apply Preventative foams where needed. ? 3. Monitor for incontinence and moisture control, use barrier creams when needed for prevention and treatment. 4. Provide adequate and supplemental nutrition.? 5. Order low air loss mattress. 6. When applicable maintain blood glucose levels per Providers order. Bilateral Lower Legs - Cleanse with [place], pat dry. Apply Dermacin Cream to lower legs per provider orders. Cover open wound bed with Durafiber with Abd pad and Elastic netting. Change daily. Apply Interdry to large skin folds to translocate moisture. Bilateral Heels - Apply Skin Prep allow to dry. Apply Foam dressing to heel - elevate off of recliner and bed surface with pillows. Change every 3 days. Re-consult wound care Nurse for wound deterioration or wound changes.
[2025-01-14 20:24] LABS: Vancomycin Random 11.9 mcg/mL (15-20)
--- NOTE | 2025-01-14 20:35 | HE.PHANOTE ---
RE: VANCO DOSING Trough came back as 11.9 mg/L and renal function is stable. Continue with dose 1000 mg q12h, next trough is scheduled for 01/15/25 @1999.
[2025-01-14] MEDS: Ammonium Lactate 12 % Cream 140 GM TUBE 1 APPL TOPICAL (21:12)
[2025-01-15] VITALS: BP 133/72; PULSE 70; RESP 18; TEMP 36.6; O2SAT 97
[2025-01-15] MEDS: Piperacillin Sodium/Tazobactam 3.375 GM in 0.9 % Sodium Chloride 50 ML IV ×2 (05:57→12:56)
[2025-01-15] MEDS: Morphine Sulfate 4 MG/ML CARTRIDGE 2 MG IVPUSH (05:57)
[2025-01-15 07:07] LABS: MANUAL DIFF FLAG NO
[2025-01-15 07:15] LABS: Basophils Absolute Auto 0.1 X10*3/uL (0.0-0.2); Basophils Percent Auto 0.8 % (0-2); Eosinophils Absolute Auto 0.4 X10*3/uL (0.0-0.4); Eosinophils Percent Auto 4.3 % (0-4); Hematocrit 30.5 % (37.0-47.0); Hemoglobin 9.5 g/dl (12.0-16.0); Imm Gran Abs Auto 0.05 X10*3/uL (0.00-0.03); Imm Gran Pct Auto 0.6 % (0.0-0.4); Lymphocytes Absolute Auto 0.9 X10*3/uL (1.2-4.9); Lymphocytes Percent Auto 11.2 % (20-40); Mean Corpuscular HGB Conc 31.1 g/dl (31.0-35.0); Mean Corpuscular Hemoglobin 26.2 pg (27.0-33.0); Mean Platelet Volume 10.7 fL (9.4-12.3); Monocytes Absolute Auto 0.9 X10*3/uL (0.1-1.2); Monocytes Percent Auto 11.3 % (2-11); Neutrophils Percent Auto 71.8 % (45-73); Platelet Count 366 X10*3/uL (160-400); Red Blood Count 3.63 X10*6/uL (4.20-5.50); Red Cell Distribution Width 15.4 % (11.0-16.0); White Blood Count 8.3 X10*3/uL (4.8-10.8)
[2025-01-15 07:53] LABS: Anion Gap 10 (12-20); Blood Urea Nitrogen 12 mg/dL (9-16); Calcium 8.4 mg/dL (8.4-10.2); Carbon Dioxide 30 mmol/L (22-29); Chloride 102 mmol/L (96-108); Creatinine Clr Calc Pharmacy 95.9; Estimated Glomerular Filt Rate > 60; Glucose Random 92 mg/dL (60-115); Potassium 3.4 mmol/L (3.3-5.1); Sodium 139 mmol/L (135-145)
[2025-01-15 07:59] VITALS: BP 172/75; PULSE 75; RESP 16; TEMP 36; O2SAT 97
[2025-01-15] MEDS: 0.9 % Sodium Chloride Flush 3 ML SYRINGE IVFLUSH ×2 (08:36→17:12)
[2025-01-15] MEDS: Digoxin 0.125 MG TABLET PO (08:37)
[2025-01-15] MEDS: hydroCHLOROthiazide 25 MG TABLET PO (08:37)
[2025-01-15] MEDS: Famotidine 20 MG TABLET PO (08:37)
[2025-01-15] MEDS: atenoloL 25 MG TABLET PO (08:37)
[2025-01-15] MEDS: Aspirin Enteric Coated 81 MG TABLET.DR PO (08:37)
[2025-01-15] MEDS: polyethylene glycoL 3350 17 GM POWD.PACK PO (08:37)
[2025-01-15] MEDS: Apixaban 5 MG TABLET PO (08:37)
[2025-01-15] MEDS: Escitalopram Oxalate 10 MG TABLET PO (08:38)
[2025-01-15] MEDS: Furosemide 40 MG TABLET PO (08:38)
--- NOTE | 2025-01-15 08:50 | P.DS_ITS ---
DS: Providers Provider Date of Service: 01/15/25 Date of admission: 01/12/25 22:15 Date of discharge: 01/15/25 Primary care physician: JOLLY Luevano Consults: 01/13/25 08:52 Consult to Wound Care Routine Reason for consultation: Skin break on left leg DS: Diagnosis Discharge Diagnosis (1) Cellulitis of left lower extremity: Status: Acute DS: Summary Hospital Course Hospital Course: admission hpi Chief Complaint: Lower extremity infection Patient is a 69-year-old female with a past medical history significant for morbid obesity, bilateral venous stasis dermatitis, gait instability secondary to MS using a walker, hypertension and paroxysmal AFib on Eliquis, who presented to the ED due to increased pain, erythema and foul drainage from her lower extremity wounds for the past week. Patient reports that she does pick at her wounds. She does not seen wound care but has had these chronic ulcers on her lower legs. She reports that they are seeping. She denies any fever, chills, nausea or vomiting. No chest pain, shortness of breath or urinary symptoms. hospital course Chronic venous stasis dermatitis bilateral lower extremities with superimposed cellulitis left lower extremity, treated with IV vanco and zosyn with singificant improvement, seen by wound care with the following recommenndation 1. Turn and Reposition every 2 hours and as needed for patient comfort.? Use pillows or wedges to support off loading positions. 2. Off Load all bony prominences with use of pillows and heel boots if needed.? Apply Preventative foams where needed. ? 3. Monitor for incontinence and moisture control, use barrier creams when needed for prevention and treatment. 4. Provide adequate and supplemental nutrition.? 5. Order low air loss mattress. 6. When applicable maintain blood glucose levels per Providers order. Bilateral Lower Legs - Cleanse with [place], pat dry. Apply Dermacin Cream to lower legs per provider orders. Cover open wound bed with Durafiber with Abd pad and Elastic netting. Change daily. Apply Interdry to large skin folds to translocate moisture. Bilateral Heels - Apply Skin Prep allow to dry. Apply Foam dressing to heel - elevate off of recliner and bed surface with pillows. Change every 3 days. Further testing included normal WBC, US negative for DVT xray no oste, will transition to oral Doxycyline and outpatient wound clinic follow up, and good local hyiegien To continue other chronic meds Time Attestation Discharge Coordination Time (in mins): 45 Quality: Safe Use of Opioids Does Pt have an Active Cancer Diagnosis on the Problem List?: No Quality: Stroke Does the patient have a stroke diagnosis?: No Physical Exam Vital Signs: Vital Signs: Selected Entries 01/15/25 07:59 Temperature 96.8 F Pulse Rate 75 Respiratory Rate 16 Blood Pressure 172/75 H Pulse Oximetry 97 Oxygen Delivery Me thod Room Air DS: Data Data Completed and Pending Labs on day of discharge: Laboratory Results - last 24 hr 01/13/25 01/14/25 19:53 06:00 WBC 9.7 RBC 3.74 L Hgb 9.9 L Hct 31.9 L MCV 85.3 MCH 26.5 L MCHC 31.0 RDW 15.4 Plt Count 382 MPV 10.5 Immature Gran % (Auto) 0.7 H Neut % (Auto) 69.6 Lymph % (Auto) 12.3 L [place] % (Auto) 13.1 H Eos % (Auto) 3.5 Baso % (Auto) 0.8 Lymph # (Auto) 1.2 [place] # (Auto) 1.3 H Eos # (Auto) 0.3 Baso # (Auto) 0.1 Abs Immat Gran (auto) 0.07 H Absolute Neuts (auto) 6.8 Absolute Nucleated RBC 0.000 Nucleated RBC % (auto) 0.0 Sodium 138 Potassium 3.6 Chloride 103 Carbon Dioxide 28 Anion Gap 11 L BUN 11 Creatinine 0.62 Estim Creat Clear Calc 106.7 Estimated GFR > 60 Random Glucose 91 Calcium 8.4 Random Vancomycin 8.9 L Preliminary micro results at discharge 01/12/25 18:23 Blood Culture - Preliminary Blood - Venous No growth after 24 hours. 01/12/25 14:39 Blood Culture - Preliminary Blood - Venous No growth after 24 hours. Discharge Plan Discharge Anticipated Discharge Date/Time: 01/15/25 08:51 Patient Disposition: Home Health Service Discharge Diagnosis: chronic lymphadema, acute on chronic cellulitis of both legs Referrals: noé goyal [Other] - 1 Week Inés Velasquez PA [Primary Care Provider, Hospitalist] - 1 Week Discharge Medications: New doxycycline monohydrate 100 mg capsule 100 mg PO BID Qty: 14 0RF Continued hydrochlorothiazide 25 mg tablet 25 mg PO DAILY Qty: 90 3RF acetaminophen 325 mg Tablet 650 mg PO TID Eliquis 5 mg Tablet 5 mg PO BID Qty: 60 0RF citalopram 20 mg tablet 20 mg PO DAILY famotidine 20 mg tablet 20 mg PO DAILY furosemide 40 mg Tablet 40 mg PO DAILY sennosides [senna] 8.6 mg Tablet 8.6 mg PO DAILY PRN (Reason: Constipation) aspirin 81 mg Tablet,Delayed Release (Dr/Ec) 81 mg PO DAILY polyethylene glycol 3350 [Miralax] 17 gram/dose Powder 17 g PO DAILY Rx Instructions: mix with 6-8oz of water Artificial Tears (PF) Dropperette 1 drp OPHTHALMIC (EYE) BID atenolol 25 mg Tablet 25 mg PO DAILY nystatin 100,000 unit/gram Powder 1 appl TOPICAL BID PRN (Reason: Rash) Rx Instructions: to groin oxycodone 5 mg tablet 5 mg PO Q6H PRN (Reason: pain) Qty: 10 0RF Rx Instructions: Partial Fill upon patient request. ammonium lactate 12 % Cream 1 appl TOPICAL BEDTIME Rx Instructions: Apply to both legs at bedtime. Culturelle 10 billion cell Capsule 1 cap PO BID digoxin 125 mcg (0.125 mg) tablet 0.125 mg PO DAILY tacrolimus 0.1 % ointment 1 appl topical BID PRN (Reason: Rash) Rx Instructions: Apply to eyelids and ears Discharge Orders: Discharge Order (Routine); Ordered 01/15/25 Ordered By: Alex Shah Diet: Advance to usual diet Activity on Discharge: As tolerated Stand Alone Forms: Patient Portal Discharge page Print Language: Wolof Care Plan Goals: recovery from cellulitis of the leg Health Concerns: chronic lymphadema recurrent cellulitis of the legs Plan of Treatment: take doxycyline as recommended and follow up with your doctor in a week Assessment: see above
[2025-01-15] MEDS: oxyCODONE HCl Immed Release 5 MG TABLET PO ×2 (09:54→17:10)
[2025-01-15] MEDS: vancomycin HCL 1,000 MG in 0.9 % Sodium Chloride 250 ML 270 MG IV (10:29)
[2025-01-15] MEDS: Mineral Oil/Petrolatum,White 106 GM Tube 1 APPL TOPICAL (13:16)
--- NOTE | 2025-01-15 15:44 | PC.NURSE ---
Patient is a&o x4, stated that she didn't need chair alarm or bed alarm, stated she has been walking independently at the assisted living, education provided about safety and fall risk protocol. Pat. stated that she understood but still wants alarm off. Call delacruz within reach, pt. was encouraged to use it and call for assistance.
[2025-01-15 16:00] VITALS: BP 149/73; PULSE 88; RESP 16; TEMP 36.9; O2SAT 97
--- NOTE | 2025-01-15 16:20 | W.MHC.F2F ---
Service Date Service Date: 01/15/25 Encounter Date of encounter: 01/15/25 Reasons for Services Signs and symptoms assessed: chronic leg wound and chronic venous stasis and lymphadema Reason for correction: wound care Homebound: Leaving the home is medically contraindicated at this time without the asist of a device and/or another person due th the listed conditions above and below. Reason homebound: leg weakness and unable to drive Homebound supporting statement: homebound due to chronic legs ulcers, severe lymphadema of the legs, difficulty ambulating and therefore needs the assistance of another person Certification: Based on the above findings, I certify that this patient is confined to the home and needs intermittent correction care, physical therapy and/or speech therapy, or continues to need occupational therapy. The patient is under my care, and I have initiated the establishment of the plan of care. The patient will be followed by a physician who will periodically review the plan of care. Time Spent With Patient Time: Total time managing care of this patient today ____ minutes.
--- NOTE | 2025-01-15 16:22 | MHC.CM.PN ---
pts sister will transport pt home called and confirmed
== END 2025-01-15 18:46 | disposition home health service (06) | DRG 603 ==
LOC: HO.ED 22:10 → HO.EDOVER 23:13 → HO.S3 01-13 11:00
PROVIDERS: Physician Assistant; Physician Assistant Medical; Admitting Provider Physician Assistant; Emergency Provider Emergency Medicine; PCP Physician Assistant; Visit Provider Internal Medicine
DX: L03.116 Cellulitis of left lower limb (principal); I48.19 Other persistent atrial fibrillation; Z68.41 Body mass index [BMI] 40.0-44.9, adult; G35 Multiple sclerosis; I11.0 Hypertensive heart disease with heart failure; I87.2 Venous insufficiency (chronic) (peripheral); E66.01 Morbid (severe) obesity due to excess calories; Z87.891 Personal history of nicotine dependence; Z79.01 Long term (current) use of anticoagulants; Z79.82 Long term (current) use of aspirin; Z79.899 Other long term (current) drug therapy
CPT/HCPCS: 36415; 73701; 80048; 80053; 80202; 81001; 83036; 83605; 83690; 83735; 85025; 85652; 86140; 87040; 93970; 97161; 99285; J2270; J2543; J3360; J3370; J3371; Q9967

== ENCOUNTER → 2025-01-12 17:57 | Outpatient (BNV) | payer MEDICARE, MEDICAID, SELFPAY | PROVIDERS: PCP Internal Medicine; Visit Provider Student in an Organized Health Care Education/Training Program | DX: R22.42 Localized swelling, mass and lump, left lower limb (principal); M79.606 Pain in leg, unspecified | CPT/HCPCS: 73701; 93970 ==

== ENCOUNTER → 2025-01-12 22:15 | Outpatient (BNV) | payer MEDICARE, MEDICAID, SELFPAY | PROVIDERS: Admitting Provider Physician Assistant; Emergency Provider Emergency Medicine; PCP Physician Assistant; Visit Provider Internal Medicine | DX: L03.116 Cellulitis of left lower limb (principal) | CPT/HCPCS: 99223; 99232; 99239; G0180 ==

== ENCOUNTER 2025-01-26 15:10 | Outpatient (AMB) | payer MEDICARE, MEDICAID, SELFPAY ==
--- NOTE | 2025-01-26 14:58 | A.OFFPC_ITS ---
Vital Signs 01/26/25 15:19 Height 5 ft 3.5 in Weight 135.171 kg BMI 52.0 BMI Reason not done Patient refused/unable BP 128/60 Blood Pressure Location Rt brachial Position Sitting Respiration 18 Pulse 88 Pulse Source Pulse Oximeter Pulse Oximetry (%) 99 Oxygen Delivery Method Room Air Intake Visit Reasons: Discharge - see comments Postal Carrier Required: No Accompanied by: Sister Allergies codeine (Codeine) Allergy (Mild, Verified 01/26/25 15:23) ITCH lisinopril (Lisinopril) Allergy (Unknown, Verified 01/26/25 15:23) VOMITING Medication List - Last Reconciled 01/26/25 by JOLLY Luevano [josias wrap Wrap leg once daily for lymphedema management. Clean wrap daily; ] acetaminophen 650 mg PO TID ammonium lactate 12% 1 appl topical BEDTIME apixaban (Eliquis) 5 mg PO BID aspirin 81 mg PO DAILY atenolol 25 mg PO DAILY citalopram 20 mg PO DAILY dextran 70-hypromellose (Artificial Tears (PF) drops in a dropperette) 1 drp ophthalmic (eye) BID digoxin 0.125 mg PO DAILY doxycycline monohydrate 100 mg PO BID famotidine 20 mg PO DAILY furosemide 40 mg PO DAILY gabapentin 300 mg PO TID hydrochlorothiazide 25 mg PO DAILY Lactobacillus rhamnosus GG (Culturelle) 1 cap PO BID lidocaine 5% 2 patches topical DAILY nystatin 1 appl topical BID PRN oxycodone 5 mg PO Q6H PRN polyethylene glycol 3350 (Miralax) 17 grams PO DAILY sennosides (senna) 8.6 mg PO DAILY PRN tacrolimus 0.1% 1 appl topical BID PRN HPI HPI Comments History of Present Illness Details 69-year-old female with history of morbi d obesity, bilateral venous stasis dermatitis, gait instability secondary to MS using a walker, hypertension, paroxysmal atrial fibrillation, and chronic low back pain related to spinal stenosis presenting to the office today accompanied by her sister for management of chronic conditions and hospital discharge follow-up. She [place] [facility] [place] due to chronic venous stasis dermatitis of the bilateral lower extremities with superimposed cellulitis of the left lower extremity. She was treated with IV vancomycin and Zosyn with significant improvement in symptoms. She was also seen by wound care with recommendations for wound management of the left lower extremity and lymphedema care. She was sent home with referral for [facility] to assist with wound care. There was no evidence of sepsis during the hospitalization. She was discharged on doxycycline 100 mg twice daily which he has been taking as prescribed and advised to continue all other home medications. Today she reports the pain in the left lower extremity is improved. She currently lives alone in an assisted living and is wrapping her legs 3 days per week and is supposed to have an RN assisting her with wrapping for the additional days of the week. Her sister expresses concerns that she is not actually adhering to the recommendations. The wounds continue to weep with foul odor noted in the room. In discussion with [facility], the patient has refused care in the past. Compliant with furosemide for the edema related to chronic venous stasis/lymphedema She is also reporting chronic low back pain related to spinal stenosis which has been ongoing for years. Currently rated as a 7/10, 3/10 at its best. There is no radiation of the pain. No paresthesias weakness. She does ambulate with a w alker related to her multiple sclerosis. This has been ongoing for about 6 years without any specific injury. She is using oxycodone 5 mg every 6 hours but reports this is not helping. No bowel/bladder dysfunction or saddle anesthesia Hypertension-compliant with hydrochlorothiazide, furosemide, atenolol Paroxysmal atrial fibrillation-on Eliquis as well as atenolol. On digoxin. Rate controlled. No longer following with Cardiology MS-not currently on any medications or following with Neurology. Using walker for gait instability Morbid obesity-BMI 52, not actively working on weight loss ROS: General: No fevers, malaise, unintentional weight loss HEENT: No blurred vision, diplopia. No sore throat, nasal congestion, rhinorrhea, sinus pain, ear pain Cardiovascular: No chest pain, palpitations, or leg edema Respiratory: No shortness of breath, wheezing, cough GI: No abdominal pain, nausea, vomiting, diarrhea, constipation, melena, hematochezia : No dysuria, hematuria, increased urinary frequency, decreased urinary output MSK: see hpi Neuro: No headaches, weakness, paresthesias Skin: see hpi EXAM: Constitutional - Awake and Alert, No apparent distress Eyes - PERRL Cardiovascular - S1S2, RRR, No edema Respiratory - Normal lung expansion, Normal respiratory effort, No respiratory distress, CTA bilaterally Extremities - no calf tenderness bilaterally. Chronic venous stasis changes of the bilateral lower extremity with 2+ edema. They are weeping ulcers of the left lower leg with Josisa wrap in place. Foul odor noted but no purulent drainage or significant warmth. Faint erythema of the bilateral lower legs Skin - Warm/Dry Neurological - Alert & oriented x3 Psychological - Appropriate affect [facility] Medical History (Updated 01/27/25 @ 18:10 by JOLLY Luevano) Lumbar spinal stenosis Chronic low back pain Morbid obesity Persistent atrial fibrillation Hypertension Lymphedema Varicose veins of left lower extremity with inflammation Seroma Chronic acquired lymphedema Multiple sclerosis Afib Atrial fibrillation Surgical History No pertinent past surgical history Family History Father No problems noted. Mother No problems noted. Other No family history of coronary artery disease Social History Household Members: Other Household Members Other:: son Housing: Apartment Do you presently have visiting nurse or other home services: No Patient Tobacco Use Status: Former Tobacco user Tobacco use type: Cigarette Cigarettes Per Day: 30 Years Smoked: 25 Second Hand Smoke Exposure: No service: No Current occupational status: retired Questionnaire Thrive Questionnaire Date Thrive assessed: 01/13/25 YOLIS-7 AMB Questionnaire YOLIS-7 Date YOLIS - 7 assessed: 01/12/25 Source: Developed by Drs. Kali Castro, Nola Mclean, Zeke Frazier and colleagues, with an educational roge from [employer]. Physical exam (Primary Care) Vital Signs: Last Vital Signs Pulse 88 01/26/25 15:19 Resp 18 01/26/25 15:19 BP 128/60 01/26/25 15:19 Pulse Ox 99 01/26/25 15:19 Oxygen Delivery Method Room Air 01/26/25 15:19 BMI result Body Mass Index 52.0 Tobacco/Smoking Status: Tobacco use Status Patient Tobacco Use Status Former Tobacco user 01/26/25 15:02 Tobacco use type Cigarette 01/26/25 15:02 Thrive Assessment: Date of Thrive Assessment Date Thrive assessed 01/13/25 01/26/25 15:02 Coding Level of Care Code Est Pt Level 4 (36916) Complex EM visit Add On G2211 Diagnoses Lymphedema I89.0 Persistent atrial fibrillation I48.19 Hypertension I10 Lumbar spinal stenosis M48.061 Morbid obesity E66.01 Assessment & Plan Assessment & Plan (1) Lymphedema: Code(s): I89.0 - Lymphedema, not elsewhere classified Category: Medical Plan: Hospital records reviewed including discharge summary, labs, wound care note. Discharge medications reconciled. Cellulitis has resolved with chronic venous stasis changes and lymphedema persisting. [facility]erral to [facility] placed but patient has been refusing visits. Josias wraps ordered to be applied by the patient and RN. Advised patient to request further assistance given she lives in an assisted living facility. Continue furosemide. Continue and complete course of doxycycline. Recommend leg elevation and regular cleaning of the lower extremities to prevent reinfection (2) Persistent atrial fibrillation: Code(s): I48.19 - Other persistent atrial fibrillation Category: Medical Plan: Rate controlled. Continue Eliquis for anticoagulation. Continue digoxin and atenolol (3) Hypertension: Code(s): I10 - Essential (primary) hypertension Category: Medical Plan: Controlled. Continue atenolol, hydrochlorothiazide, Lasix. Low-sodium diet (4) Lumbar spinal stenosis: Code(s): M48.061 - Spinal stenosis, lumbar region without neurogenic claudication Category: Medical Plan: Pain levels uncontrolled. Continue oxycodone 5 mg every 6 hours as needed. Discussed that increasing oxycodone is not recommended. She does agree to trialing gabapentin again. Recommend gabapentin 300 mg t.i.d.. Also recommend lidocaine patches. Weight loss efforts are also use strongly encouraged (5) Morbid obesity: Code(s): E66.01 - Morbid (severe) obesity due to excess calories Category: Medical Plan: Weight loss efforts strongly encouraged. Plan Follow-up in the office in 3 months. Referred for VNA for PT/OT/wound care and lymphedema management Orders: Referrals [facility] Referral G89.29 - Other chronic pain, I83.009 - Varicose veins of unspecified lower extremity with ulcer of unspecified site, I87.2 - Venous insufficiency (chronic) (peripheral), I89.0 - Lymphedema, not elsewhere classified, L97.909 - Non-pressure chronic ulcer of unspecified part of unspecified lower leg with unspecified severity, M54.50 - Low back pain, unspecified Medications: New gabapentin Take 300mg nightly x 3 nights, then 300mg BID x3 days, then 300mg TID 300 mg PO TID 180 caps 1RF lidocaine 5% leave on most painful area for up to 12 hrs 2 patches topical DAILY 30 ea 5RF [josias wrap] Wrap leg once daily for lymphedema management. Clean wrap daily; 3 multiple units 0RF I83.009 - Varicose veins of unspecified lower extremity with ulcer of unspecified site, I87.2 - Venous insufficiency (chronic) (peripheral), I89.0 - Lymphedema, not elsewhere classified, L97.909 - Non-pressure chronic ulcer of unspecified part of unspecified lower leg with unspecified severity
[2025-01-26 15:19] VITALS: BP 128/60; PULSE 88; RESP 18; O2SAT 99; BMI 52.0
== END 2025-01-26 15:51 | disposition home or self-care (01) ==
LOC: HO.HMCHD 15:11
PROVIDERS: PCP Physician Assistant; Visit Provider Physician Assistant
DX: I89.0 Lymphedema, not elsewhere classified (principal); I48.19 Other persistent atrial fibrillation; I10 Essential (primary) hypertension; M48.061 Spinal stenosis, lumbar region without neurogenic claudication; E66.01 Morbid (severe) obesity due to excess calories

== ENCOUNTER → 2025-01-26 15:10 | Outpatient (BNVA) | payer MEDICARE, MEDICAID, SELFPAY | PROVIDERS: PCP Physician Assistant; Visit Provider Physician Assistant | DX: I89.0 Lymphedema, not elsewhere classified (principal); I48.19 Other persistent atrial fibrillation; I10 Essential (primary) hypertension; M48.061 Spinal stenosis, lumbar region without neurogenic claudication; E66.01 Morbid (severe) obesity due to excess calories; Z68.43 Body mass index [BMI] 50.0-59.9, adult; Z79.01 Long term (current) use of anticoagulants; Z79.891 Long term (current) use of opiate analgesic; Z79.899 Other long term (current) drug therapy | CPT/HCPCS: 99212 ==

== ENCOUNTER 2025-02-03 17:16 | Emergency (ER) | payer MEDICARE, MEDICAID, SELFPAY ==
[2025-02-03 17:30] VITALS: BP 119/52; PULSE 84; O2SAT 96; BMI 57.4
[2025-02-03 17:45] VITALS: BP 105/56; PULSE 83; RESP 18; TEMP 37.2; O2SAT 100
[2025-02-03 18:13] LABS: Hematocrit 31.0 % (37.0-47.0); Hemoglobin 10.1 g/dl (12.0-16.0); Imm Gran Abs Auto 0.07 X10*3/uL (0.00-0.03); Imm Gran Pct Auto 0.5 % (0.0-0.4); Lymphocytes Absolute Auto 1.5 X10*3/uL (1.2-4.9); MANUAL DIFF FLAG SCAN; Mean Corpuscular HGB Conc 32.6 g/dl (31.0-35.0); Mean Corpuscular Hemoglobin 26.2 pg (27.0-33.0); Mean Corpuscular Volume 80.3 fL (80.0-98.0); NRBC Abs Auto 0.000 X10*3/uL (0.0-0.012); NRBC Pct Auto 0.0 /100WBC (0.0-0.2); Platelet Count 476 X10*3/uL (160-400); Red Blood Count 3.86 X10*6/uL (4.20-5.50); SCAN SMEAR FLAG 1; White Blood Count 13.5 X10*3/uL (4.8-10.8)
--- NOTE | 2025-02-03 18:17 | PC.NURSE ---
Received call from [facility], per RN pt requiring PT Eval prior to return secondary to inability to walk this am. Willl need PT eval faxed to [phone]
[2025-02-03 18:25] LABS: INTERNATIONAL NORM RATIO 1.3 (0.9-1.1); Prothrombin Time 15.0 SEC (10.9-12.4)
[2025-02-03 18:28] LABS: Anion Gap 12 (12-20); Blood Urea Nitrogen 16 mg/dL (9-16); Calcium 8.9 mg/dL (8.4-10.2); Carbon Dioxide 29 mmol/L (22-29); Chloride 96 mmol/L (96-108); Creatinine Clr Calc Pharmacy 97.8; Estimated Glomerular Filt Rate > 60; Magnesium 2.2 mg/dL (1.6-2.6); Potassium 4.2 mmol/L (3.3-5.1); Sodium 133 mmol/L (135-145)
--- NOTE | 2025-02-03 19:15 | ED.WOUNDLAC ---
HPI - Wound/Laceration General Chief Complaint: Wound/Laceration Stated Complaint: bilateral edema both legs diff ambulating weeping Time Seen by Provider: 02/03/25 18:43 History of Present Illness ED Provider: Erich Martinez MD HPI narrative: 69-year-old female with chronic lymphedema bilateral chronic leg ulcers seen by vascular in the past questionably followed at [facility]. Comes from shelter facility with inability to bear weight due to leg edema which is acute on chronic. Denies fever chills difficulty breathing. Relevant, partial medical history: MS, AFib on apixaban, chronic lymphedema. Baseline ambulatory status is with a walker support. Related Data Home Medications ?Medication ?Instructions ?Recorded ?Confirmed citalopram 20 mg tablet 20 mg PO DAILY 08/13/22 02/04/25 digoxin 125 mcg (0.125 mg) tablet 0.125 mg PO DAILY 08/13/22 02/04/25 famotidine 20 mg tablet 20 mg PO DAILY 08/13/22 02/04/25 aspirin 81 mg tablet,delayed 81 mg PO DAILY 05/26/24 02/04/25 release furosemide 40 mg tablet 40 mg PO DAILY 05/26/24 02/04/25 Lactobacillus rhamnosus GG 10 1 cap PO BID 02/04/25 02/04/25 billion cell capsule (Culturelle) acetaminophen 325 mg tablet 650 mg PO TID 02/04/25 02/04/25 ammonium lactate 12 % topical cream 1 appl topical BEDTIME 02/04/25 02/04/25 nystatin 100,000 unit/gram topical 1 appl topical BID PRN READ SKIN 02/04/25 02/04/25 powder IN GROIN oxycodone 5 mg tablet 5 mg PO Q6H PRN Pain 02/04/25 02/04/25 polyethylene glycol 3350 17 gram 17 g PO DAILY 02/04/25 02/04/25 oral powder packet (Miralax) polyvinyl alcohol 1.4 % eye drops 1 drp ophthalmic (eye) BID 02/04/25 02/04/25 (Artificial Tears (polyvinyl alcohol)) sennosides 8.6 mg tablet (senna) 8.6 mg PO DAILY PRN Constipation 02/04/25 02/04/25 tacrolimus 0.1 % topical ointment 1 appl topical BID PRN PSORIASIS 02/04/25 02/04/25 Previous Rx's ?Medication ?Instructions ?Recorded apixaban 5 mg tablet (Eliquis) 5 mg PO BID #60 tabs 06/04/22 hydrochlorothiazide 25 mg tablet 25 mg PO DAILY #90 tabs 12/26/24 gabapentin 300 mg capsule 300 mg PO TID #180 caps 01/26/25 atenolol 25 mg tablet 25 mg PO DAILY #90 tabs 02/02/25 Allergies Allergy/AdvReac Type Severity Reaction Status Date / Time codeine (Codeine) Allergy Mild ITCH Verified 02/03/25 17:35 lisinopril (Lisinopril) Allergy Unknown VOMITING Verified 02/03/25 17:35 [facility] Past Medical History Medical History Lumbar spinal stenosis Chronic low back pain Morbid obesity Persistent atrial fibrillation Hypertension Lymphedema Varicose veins of left lower extremity with inflammation Seroma Chronic acquired lymphedema Multiple sclerosis Afib Atrial fibrillation Surgical History No pertinent past surgical history Family History Family History Father No problems noted. Mother No problems noted. Other No family history of coronary artery disease Social History Social History Household Members: Other Household Members Other:: son Housing: Apartment Do you presently have visiting nurse or other home services: No Alcohol intake: never Patient Tobacco Use Status: Former Tobacco user Tobacco use type: Cigarette Cigarettes Per Day: 30 Years Smoked: 25 Smoked in Last 30 Days: No Second Hand Smoke Exposure: No Use of substances other than those prescribed or required for medical reasons: No Advance Directives: Yes Advance Directives on File: Yes Advance Directives Date on File: 11/17/24 Do you have a plan to hurt others: No Plan service: No Current occupational status: retired Physical Exam Vital Signs: Vital Signs: Last Vital Signs Temp 97.1 F 02/04/25 10:56 Pulse 93 02/04/25 10:56 Resp 14 02/04/25 10:56 BP 149/73 H 02/04/25 10:58 Pulse Ox 98 02/04/25 10:56 O2 Del Method Room Air 02/04/25 10:56 BMI result Body Mass Index 57.4 EXAM: Gen: Alert, awake, morbidly obese deconditioned appearing no acute distress Head: Atraumatic Eyes: Anicteric, Normal conjunctiva. ENT: Moist mucosa, no pallor. ? Neck: Supple. Skin: ?Severe chronic skin thickening and evidence of lymphedema and chronic skin ulcerations some weeping clear material left pretibial area otherwise these changes appear chronic. Respiratory: Breathing comfortably, No distress.Clear to auscultation bilaterally, symmetric chest expansion, No wheeze, rales, ronchi. Cardiovascular: Regular rate and rhythm. No murmurs or rub. Well perfused periphery, warm extremities. Severe chronic appearing bilateral edema/lymphedema see photo Abdominal: No focal tenderness. Soft, no objective distension. No palpable masses or obvious organomegaly. ?No guarding, no rebound tenderness or other peritoneal findings. : No flank tenderness. Neuro: Alert. Gross movement of all extremities intact. ? Psych: Calm. Cooperative. MSK: No grossly visible deformity. Vital signs: See flowsheet Medications Administered Generic Name Dose Route Start Last Admin Trade Name Freq PRN Reason Stop Dose Admin Apixaban 5 mg 02/04/25 09:45 02/04/25 10:58 Apixaban 5 Mg Tablet PO 5 mg BID TONG Administration Aspirin 81 mg 02/04/25 09:45 02/04/25 10:58 Aspirin Enteric Coated 81 Mg Tablet.Dr PO 81 mg DAILY TONG Administration Cephalexin HCl 500 mg 02/03/25 21:00 02/04/25 08:52 Cephalexin 500 Mg Capsule PO 02/10/25 20:59 500 mg TID TONG Administration Digoxin 0.125 mg 02/04/25 09:45 02/04/25 10:59 Digoxin 0.125 Mg Tablet PO 0.125 mg DAILY TONG Administration Protocol Furosemide 40 mg 02/04/25 09:45 02/04/25 10:58 Furosemide 40 Mg Tablet PO 40 mg DAILY TONG Administration Protocol Gabapentin 300 mg 02/04/25 09:45 02/04/25 10:59 Gabapentin 300 Mg Capsule PO 300 mg TID TONG Administration Hydrochlorothiazide 25 mg 02/04/25 09:45 02/04/25 10:58 Hydrochlorothiazide 25 Mg Tablet PO 25 mg DAILY TONG Administration Protocol Medical Decision Making Medical Decision Making MDM Narrative: Medical Decision Makin-year-old female with chronic lymphedema sent for limitations or inability to walk safely in shelter facility. Staff has sent her for PT/case management evaluation as they report that she has not safely ambulating at their level of care. Patient herself has no acute complaints she does acknowledge she was unable to bear weight on her legs today bilaterally she does not have any focal neurologic complaints herself. Examination shows severe lymphedema with some mild weeping I do not think she has a DVT or an acute infection though it is not unreasonable to begin empiric cephalosporin for possible superinfected chronic venous stasis ulcers PT/case management eval and discussion with her primary SNF Preliminary Favored Differential Diagnosis: [ ] among additional considered etiologies Testing Interpreted Independently: Not Applicable Radiology or Lab testing Results Reviewed: Not Applicable Consults: Not Applicable Independent Historians/External Chart Reviews: Not Applicable Social Determinants of Health Impacting MDM/Planning: Not Applicable Lab Data 02/03/25 18:02 02/03/25 18:02 Labs: Lab Results 02/03/25 Range/Units 18:02 WBC 13.5 H (4.8-10.8) X10*3/uL RBC 3.86 L (4.20-5.50) X10*6/uL Hgb 10.1 L (12.0-16.0) g/dl Hct 31.0 L (37.0-47.0) % MCV 80.3 (80.0-98.0) fL MCH 26.2 L (27.0-33.0) pg MCHC 32.6 (31.0-35.0) g/dl RDW 15.2 (11.0-16.0) % Plt Count 476 H D (160-400) X10*3/uL MPV 10.3 (9.4-12.3) fL Immature Gran % (Auto) 0.5 H (0.0-0.4) % Neut % (Auto) 74.9 H (45-73) % Lymph % (Auto) 10.8 L (20-40) % Bracken % (Auto) 11.2 H (2-11) % Eos % (Auto) 2.0 (0-4) % Baso % (Auto) 0.6 (0-2) % Lymph # (Auto) 1.5 (1.2-4.9) X10*3/uL Bracken # (Auto) 1.5 H (0.1-1.2) X10*3/uL Eos # (Auto) 0.3 (0.0-0.4) X10*3/uL Baso # (Auto) 0.1 (0.0-0.2) X10*3/uL Abs Immat Gran (auto) 0.07 H (0.00-0.03) X10*3/uL Absolute Neuts (auto) 10.1 H (2.0-8.3) x10*3/uL Absolute Nucleated RBC 0.000 (0.0-0.012) X10*3/uL Nucleated RBC % (auto) 0.0 (0.0-0.2) /100WBC Smear Tech's Comments VERIFIED PT 15.0 H D (10.9-12.4) SEC INR 1.3 H (0.9-1.1) Sodium 133 L (135-145) mmol/L Potassium 4.2 D (3.3-5.1) mmol/L Chloride 96 (96-108) mmol/L Carbon Dioxide 29 (22-29) mmol/L Anion Gap 12 (12-20) BUN 16 (9-16) mg/dL Creatinine 0.71 (0.5-1.4) mg/dL Estim Creat Clear Calc 97.8 Estimated GFR > 60 Random Glucose 100 (60-115) mg/dL Calcium 8.9 (8.4-10.2) mg/dL Magnesium 2.2 (1.6-2.6) mg/dL Discharge Plan Discharge Clinical Impression: Acute bilateral venous stasis dermatitis Instructions: Peripheral Vascular Disease (ED), Lymphedema (ED) Prescriptions: No Action hydrochlorothiazide 25 mg tablet 25 mg PO DAILY Qty: 90 3RF atenolol 25 mg tablet 25 mg PO DAILY Qty: 90 1RF Eliquis 5 mg Tablet 5 mg PO BID Qty: 60 0RF citalopram 20 mg tablet 20 mg PO DAILY famotidine 20 mg tablet 20 mg PO DAILY furosemide 40 mg Tablet 40 mg PO DAILY aspirin 81 mg Tablet,Delayed Release (Dr/Ec) 81 mg PO DAILY sennosides [senna] 8.6 mg Tablet 8.6 mg PO DAILY PRN (Reason: Constipation) acetaminophen 325 mg Tablet 650 mg PO TID polyethylene glycol 3350 [Miralax] 17 gram Powder In Packet 17 g PO DAILY polyvinyl alcohol [Artificial Tears (polyvin alc)] 1.4 % Drops 1 drp OPHTHALMIC (EYE) BID tacrolimus 0.1 % Ointment 1 appl TOPICAL BID PRN (Reason: PSORIASIS) ammonium lactate 12 % Cream 1 appl TOPICAL BEDTIME nystatin 100,000 unit/gram Powder 1 appl TOPICAL BID PRN (Reason: READ SKIN IN GROIN) Culturelle 10 billion cell Capsule 1 cap PO BID oxycodone 5 mg Tablet 5 mg PO Q6H PRN (Reason: Pain) digoxin 125 mcg (0.125 mg) tablet 0.125 mg PO DAILY gabapentin 300 mg capsule 300 mg PO TID Qty: 180 1RF Rx Instructions: Take 300mg nightly x 3 nights, then 300mg BID x3 days, then 300mg TID [place] [facility] [place]Provider Group, Vascular Surgery] Print Language: Macanese
--- NOTE | 2025-02-03 20:42 | MHC.CM.ED ---
CM met with patient to discuss discharge planning. Pt lives alone in assisted living at [facility] in [place]. Pt uses a rollator. She states she normally ambulates with her walker, however fell today when she lost her balance. She has chronic lymphedema, however it is worse now. Pt states she is independent with her ADL's. Staff gives her medications, and meals, laundry and housekeeping is provided. Her PCP is Inés AZEVEDO. She has a HCP and MOLST on file. HCP#1 Oh Garcia ([phone]) and HCP #2 Corey Garcia ([phone]). MOLST on file. DNR/DNI. Transfer to hospital/hydrate only. Pt is agreeable to STR if recommended. Denies STR in past. Pt was hospitalized at [facility] [place] 01/12[place]/25 and was discharged with [facility]. Pt states she may have told them not to come back. Will assess if patient is active with [facility] via [facility]. Will place local referrals. Pt has a qualifying stay. CM will follow for discharge planning.
[2025-02-03 22:27] VITALS: BP 107/71; PULSE 108; RESP 18; TEMP 37; O2SAT 95
--- NOTE | 2025-02-03 23:50 | PC.NURSE ---
Assumed care of pt at 2258. Pt comes from main ED. report rec'd from RN, Linda. PT transfer from stretcher to hospital bed. Changed into hospital gown. purewick in place. BLE redness, scaling noted. Pt encouraged to not pick and peel skin. PT reports she is unaware of her current medications and states facility gives her her medications, No list from assisted living facility rec'd TW placed call to facility with no success- they are opened 8am-8pm and TW unable to reach overnight wellness line when pressing it did not transfer call
[2025-02-04 06:00] VITALS: BP 174/60; PULSE 99; RESP 18; TEMP 36.5; O2SAT 96
--- NOTE | 2025-02-04 09:14 | PC.NURSE ---
Pt ambulated in hallway with walker and PT; slow, steady gait; pt states she felt steady on her feet at this time
--- NOTE | 2025-02-04 10:46 | PHA.MEDREC ---
Pharmacy Consult ? Medication Reconciliation Pharmacy has reviewed the medication reconciliation completed by Trinidad. I received an update list of medications from [facility]. All prescription medication enter correctly by RN. Added OTC medications and PRN medications to home list. Vikki Pettit, PhyllisD
[2025-02-04 10:56] VITALS: BP 149/73; PULSE 93; RESP 14; TEMP 36.2; O2SAT 98
[2025-02-04 10:58] VITALS: BP 149/73
[2025-02-04] MEDS: Aspirin Enteric Coated 81 MG TABLET.DR PO (10:58)
--- NOTE | 2025-02-04 11:11 | MHC.CM.ED ---
LATE ENTRY FROM 02/04/2025 AT 1015AM: Patient remains in ER overflow. Physical therapy eval completed. Home with services recommended. PT eval faxed to [facility] at [phone] as requested when patient came to the ER. Referral made to [facility] to see if they can accept patient for services. Patient has a history of declining services once they're arranged. Patient wants to return home. Will reach out to [facility] to notify of d/c. Continue to monitor for d/c needs.
--- NOTE | 2025-02-04 11:13 | MHC.CM.ED ---
Spoke with Bonnie of [facility]. Bonnie states she is new to the facility and has to check with her director to make sure patient can return. T/W explained patient passed PT and services were trying to be arranged. Bonnie stated patient will sit in a chair in the community room, doesn't shower or take care of her legs. T/W explained patient has capacity to make bad decisions and wanted to return home. Received return telephone call from [facility]. Bonnie stated, director Catia Duron ([phone]) felt they could not safely care for patient and that patient required STR for PT, OT and to take care of patient's legs. T/W explained PT eval was completed and home with services were recommended. At this time, T/W explained to Bonnie that Karolina Gilmore CM Director would contact Catia to discuss this issue. Karolina Gilmore CM Director made aware. Spoke with Catia. PT eval re-faxed by Karolina. Karolina is waiting for a return telephone call. Continue to monitor for d/c needs.
--- NOTE | 2025-02-04 11:58 | MHC.CM.PN ---
This engineering technical writer placed call to Catia RN director @ pt's [facility], to discuss pt's return to her apartment. Catia expressed the facilities on-going concerns regarding the pt's mobility @ the [place]. And reports to having many conversations w/ pt & family. Catia requested the PT note- this engineering technical writer sent via fax @ [phone] (received fax confirmation), along with RN dee, ED note & med list. At this time the patient has had no acute mobility changes and is at her baseline. Per the PT note it's recommended pt can return home w/ services. Received return call from Catia @ [facility]-confirmed patient is able to return and they will set-up a family meeting upon her return.
[2025-02-04 12:01] VITALS: BP 149/73; PULSE 93
--- NOTE | 2025-02-04 12:52 | MHC.CM.ED ---
Patient will d/c back to [facility]. Francesca NIELSON booked for 3pm. Med nec with chart. Amara SOLOMONA arranged for SN and PT. Patient, Trinidad RN and Sima JUNIOR aware. Continue to monitor for d/c needs.
--- NOTE | 2025-02-04 12:56 | PC.NURSE ---
Pt aware of planned transfer back to [facility] for 1500 today; pt has no complaints at this time
[2025-02-04 14:00] VITALS: BP 126/50; PULSE 86; RESP 20; TEMP 36.2; O2SAT 100
[2025-02-04 16:19] VITALS: BP 126/50; PULSE 80; RESP 16; TEMP 36.6
== END 2025-02-04 15:30 | disposition skilled nursing facility (03) ==
PROVIDERS: Emergency Provider Emergency Medicine
DX: I87.2 Venous insufficiency (chronic) (peripheral) (principal); R60.0 Localized edema; R26.2 Difficulty in walking, not elsewhere classified; Z79.899 Other long term (current) drug therapy; Z87.891 Personal history of nicotine dependence
CPT/HCPCS: 36415; 80048; 83735; 85025; 85610; 97162; 99284